=== PATIENT | male | born 1945 | race Caucasian/White ===

== ENCOUNTER 2016-11-18 10:09 | Outpatient (CLI) | payer MEDICARE, MEDICAID ==
[2016-11-18 11:02] LABS: HEMOGLOBIN A1C 1.52 g/dL
[2016-11-18 11:08] LABS: ALBUMIN/GLOBULIN RATIO 0.9 (1.0-2.2); BILIRUBIN,TOTAL 2.1 mg/dL (0.2-1.0); CALCIUM 8.6 mg/dL (8.5-10.3); CREATININE 2.1 mg/dL (0.6-1.2); POTASSIUM 3.9 mmol/L (3.5-5.0)
== END 2016-11-18 10:10 | disposition home or self-care (01) ==
LOC: LAB 10:09
PROVIDERS: ATTEND Internal Medicine
DX: R63.8 Other symptoms and signs concerning food and fluid intake (principal); E11.9 Type 2 diabetes mellitus without complications; Z79.899 Other long term (current) drug therapy
CPT/HCPCS: 36415; 80053; 83036; 84443

== ENCOUNTER 2016-11-22 08:58 | Outpatient (CLI) | payer MEDICARE, MEDICAID ==
--- NOTE | 2016-11-22 12:33 | Ultrasound Report ---
RIGHT UPPER QUADRANT ULTRASOUND: 11/22/2016 CLINICAL INDICATION: Elevated LFTs. TECHNIQUE: Real-time scanning was performed with industrial sales representative static images obtained. FINDINGS: The liver is enlarged, measuring 21 cm. Hepatic echogenicity is heterogeneous, with a nod ular contour, compatible with cirrhosis. The common bile duct measures 7 mm. The gallbladder demons trates stones. The right kidney measures 9.5 cm, and demonstrates no hydronephrosis. IMPRESSION: HETEROGENEOUS, ENLARGED LIVER, WITH NODULARITY OF THE SURFACE, SUGGESTIVE OF CIRRHOSIS. CHOLELITHIASIS. NO EVIDENCE OF BILIARY OBSTRUCTION. 12:9:47 JOB #: [id number] EXT JOB #:[id number]
== END 2016-11-22 08:59 | disposition home or self-care (01) ==
LOC: DI 08:58
PROVIDERS: ATTEND Internal Medicine
DX: R16.0 Hepatomegaly, not elsewhere classified (principal); K80.20 Calculus of gallbladder without cholecystitis without obstruction
CPT/HCPCS: 76705

== ENCOUNTER 2016-12-01 13:54 | Outpatient (CLI) | payer MEDICARE, MEDICAID ==
[2016-12-01 15:20] LABS: BILIRUBIN,DIRECT 0.3 mg/dL (0.1-0.5); BILIRUBIN,TOTAL 1.2 mg/dL (0.2-1.0); TOTAL PROTEIN 7.2 g/dL (6.7-8.2)
[2016-12-03 16:50] LABS: ALPHA 1 GLOBULIN 0.3 g/dL (0.2-0.3); ALPHA 2 GLOBULIN 0.8 g/dL (0.5-0.9); BETA 1 GLOBULIN 0.5 g/dL (0.4-0.6); BETA 2 GLOBULIN 0.6 g/dL (0.2-0.5); GAMMA GLOBULIN 1.1 g/dL (0.8-1.7)
[2016-12-03 21:56] LABS: SMOOTH MUSCLE IGG AB <20 U
[2016-12-04 18:47] LABS: LIVER KIDNEY MICROSOME AB <20.0 U
[2016-12-05 09:22] LABS: TEST RESULT REPORT
[2016-12-05 12:51] LABS: ANA SCREEN POSITIVE (NEGATIVE)
[2016-12-05 14:17] LABS: ANA TITER 1:40 titer
== END 2016-12-01 13:55 | disposition home or self-care (01) ==
LOC: LAB 13:54
PROVIDERS: ATTEND Internal Medicine
DX: R74.8 Abnormal levels of other serum enzymes (principal); K74.60 Unspecified cirrhosis of liver
CPT/HCPCS: 36415; 80076; 81599; 82105; 82390; 82728; 83516; 83540; 84155; 84165; 84466; 86038; 86255; 86317; 86376; 86704; 87340

== ENCOUNTER 2017-02-28 06:54 | Outpatient (CLI) | payer MEDICARE, MEDICAID | END 2017-02-28 06:55 | disposition critical access hospital (66) | LOC: EMS 06:54 | PROVIDERS: ATTEND Surgery | DX: R61 Generalized hyperhidrosis (principal); R09.89 Other specified symptoms and signs involving the circulatory and respiratory systems; R53.1 Weakness | CPT/HCPCS: A0425; A0427 ==

== ENCOUNTER 2017-02-28 07:13 | Inpatient (IN) | payer MEDICARE, MEDICAID ==
[2017-02-28] MEDS ORDERED: SODIUM CHLORIDE 0.9% 1,000 ML IV ONE ×2 (07:23→09:46)
--- NOTE | 2017-02-28 07:27 | ED Physician Documentation ---
PD HPI URI - Stated complaint Stated Complaint: GLF - History obtained from History obtained from: Patient, EMS - History of Present Illness Timing - onset: How many weeks ago (1) Timing duration: Weeks (1) Timing details: Gradual onset, Still present Associated symptoms: Dry cough, Dyspnea, Other (weakness). No: Fever Contributing factors: COPD / asthma Improves by: MDI/nebulizer Similar symptoms before: Has not had sx before Recently seen: Not recently seen - Additional information Additional information: 71 y/o male resident of [facility] with a history of COPD has had an increase in his cough over the past week and he has become weak and has had a fall last night without injury. He was noted to be hypotensive on standing and has received fluids. He denies fever. Review of Systems Constitutional: denies: Fever Eyes: denies: Decreased vision Ears: denies: Ear pain Nose: reports: Rhinorrhea / runny nose, Congestion Throat: denies: Sore throat Cardiac: denies: Chest pain / pressure, Palpitations Respiratory: reports: Dyspnea, Cough, Wheezing GI: denies: Abdominal Pain, Nausea, Vomiting, Constipation, Diarrhea : denies: Dysuria, Frequency Skin: reports: Rash Musculoskeletal: denies: Neck pain, Back pain, Extremity pain Neurologic: reports: Generalized weakness. denies: Focal weakness, Numbness PD PAST MEDICAL HISTORY - Present Medications Home Medications: Ambulatory Orders Medication Instructions Recorded Confirmed Amiodarone HCl 200 mg DAILY 02/28/17 02/28/17 Aspirin 81 mg PO DAILY 02/28/17 02/28/17 Carvedilol [Coreg] 6.25 mg PO BID 02/28/17 02/28/17 Ferrous Sulfate 325 mg PO DAILY 02/28/17 02/28/17 Fluticasone/Salmeterol [Advair 1 puffs BID 02/28/17 02/28/17 250-50 Diskus] Insulin Glargine [Lantus Solostar] 30 units BID 02/28/17 02/28/17 Lisinopril [Zestril] 2.5 mg PO DAILY 02/28/17 02/28/17 QUEtiapine [SEROquel] 50 mg QPM 02/28/17 02/28/17 Sertraline HCl [Zoloft] 100 mg PO QPM 02/28/17 02/28/17 Tiotropium [place] [Spiriva] 1 cap DAILY 02/28/17 02/28/17 Torsemide [Demadex] 80 mg PO BID 02/28/17 02/28/17 Urea 480 gm TP DAILY 02/28/17 02/28/17 - Allergies Allergies/Adverse Reactions: Allergies Allergy/AdvReac Type Severity Reaction Status Date / Time No Known Drug Allergies Allergy Verified 02/28/17 07:40 PD ED PE NORMAL - HEENT HEENT: Atraumatic, PERRL, EOMI, Other (thick white gomes is stained with tobacco around the lips ) - Neck Neck: Supple, no meningeal sign, No bony TTP - Cardiac Cardiac: No murmur, Other (tachy to 100) - Respiratory Respiratory: No respiratory distress, Other (scattered wheezes expritory with light rhonchi in the right base. ) - Abdomen Abdomen: Soft, Non tender, Other (There are multiple ventral hernias without pain ) - Back Back: No CVA TTP, No spinal TTP - Derm Derm: Normal color, Warm and dry, Other (There is erythema to the belt line looks like [place]) - Extremities Extremities: No deformity, No edema - Neuro Neuro: No motor deficit, No sensory deficit Eye Opening: Spontaneous Motor: Obeys Commands Verbal: Confused GCS Score: 14 - Psych Psych: Normal mood, Normal affect Results - Vitals Vitals: Vital Signs - 24 hr 02/28/17 02/28/17 02/28/17 07:14 08:00 08:15 Temperature 36.3 C L Heart Rate 80 78 76 Respiratory 20 22 20 Rate Blood Pressure 120/78 79/51 L 87/52 L O2 Saturation 92 92 91 L 02/28/17 02/28/17 02/28/17 09:00 09:17 09:30 Temperature Heart Rate 73 76 72 Respiratory 20 22 20 Rate Blood Pressure 94/53 L 88/55 L 87/55 L O2 Saturation 92 92 93 02/28/17 02/28/17 02/28/17 09:45 10:00 10:30 Temperature Heart Rate 71 70 71 Respiratory 22 20 20 Rate Blood Pressure 92/55 L 90/49 L 96/53 L O2 Saturation 94 96 96 02/28/17 02/28/17 02/28/17 10:45 11:00 11:20 Temperature Heart Rate 92 74 91 Respiratory 20 22 32 H Rate Blood Pressure 106/58 L 117/65 160/60 H O2 Saturation 98 92 51 L 02/28/17 02/28/17 02/28/17 11:28 11:40 11:45 Temperature Heart Rate 93 92 93 Respiratory 32 H 24 26 H Rate Blood Pressure 154/93 H 133/83 H 121/101 H O2 Saturation 82 L 89 L 89 L 02/28/17 02/28/17 02/28/17 11:50 11:58 12:03 Temperature Heart Rate 93 93 Respiratory 30 H 26 H 27 H Rate Blood Pressure 121/71 O2 Saturation 90 L 90 L Oxygen O2 Source BIPAP - EKG (time done) 0734 Rate: Rate (enter#) (78) Intervals: Prolonged HI, LBBB Compare to prior EKG: Old EKG unavailable Computer interpretation: Agree with computer - Labs Labs: Laboratory Tests 02/28/17 02/28/17 02/28/17 07:43 07:43 07:43 WBC 10.8 RBC 4.16 L Hgb 13.4 L Hct 39.1 L MCV 93.9 MCH 32.2 H MCHC 34.3 RDW 13.4 Plt Count 174 MPV 7.3 L Neut # 9.0 H Lymph # 1.0 L [place] # 0.7 Eos # 0.0 Baso # 0.1 Absolute Nucleated RBC 0.01 Nucleated RBC % 0.0 Bld Gas Analysis Time Sample Site ABG pH ABG pCO2 ABG pO2 ABG HCO3 ABG Total CO2 ABG O2 Saturation ABG Oximetry Spot Check ABG Base Excess Sanjay Test O2 Delivery Device FiO2 Sodium 136 Potassium 3.1 L Chloride 97 L Carbon Dioxide 24 Anion Gap 15.0 H BUN 55 H Creatinine 3.2 H Estimated GFR (MDRD) 19 L Glucose 139 H Lactic Acid Calcium 8.1 L Total Bilirubin 1.1 H AST 54 H ALT 32 Alkaline Phosphatase 70 Troponin I 0.07 Total Protein 7.4 Albumin 3.7 Globulin 3.7 Albumin/Globulin Ratio 1.0 Lipase 16 L Urine Color Urine Clarity Urine pH Ur Specific [place] Urine Protein Urine Glucose (UA) Urine Ketones Urine Occult Blood Urine Nitrite Urine Bilirubin Urine Urobilinogen Ur Leukocyte Esterase Urine RBC Urine WBC Ur Squamous Epith Cells Urine Bacteria Ur Microscopic Review Urine Culture Comments 02/28/17 02/28/17 02/28/17 07:43 11:00 11:17 WBC RBC Hgb Hct MCV MCH MCHC RDW Plt Count MPV Neut # Lymph # [place] # Eos # Baso # Absolute Nucleated RBC Nucleated RBC % Bld Gas Analysis Time Sample Site ABG pH ABG pCO2 ABG pO2 ABG HCO3 ABG Total CO2 ABG O2 Saturation ABG Oximetry Spot Check ABG Base Excess Sanjay Test O2 Delivery Device FiO2 Sodium Potassium Chloride Carbon Dioxide Anion Gap BUN Creatinine Estimated GFR (MDRD) Glucose Lactic Acid 0.8 Calcium Total Bilirubin AST ALT Alkaline Phosphatase Troponin I 0.06 Total Protein Albumin Globulin Albumin/Globulin Ratio Lipase Urine Color DARK YELLOW Urine Clarity CLOUDY Urine pH 6.0 Ur Specific [place] 1.025 Urine Protein 100 H Urine Glucose (UA) NEGATIVE Urine Ketones NEGATIVE Urine Occult Blood LARGE H Urine Nitrite NEGATIVE Urine Bilirubin NEGATIVE Urine Urobilinogen 0.2 (NORMAL) Ur Leukocyte Esterase MODERATE H Urine RBC TNTC H Urine WBC >25 H Ur Squamous Epith Cells NONE SEEN Urine Bacteria Many H Ur Microscopic Review INDICATED Urine Culture Comments INDICATED 02/28/17 11:43 WBC RBC Hgb Hct MCV MCH MCHC RDW Plt Count MPV Neut # Lymph # [place] # Eos # Baso # Absolute Nucleated RBC Nucleated RBC % Bld Gas Analysis Time 1145 Sample Site RIGHT RADIAL ABG pH 7.13 L* ABG pCO2 79 H* ABG pO2 70 L ABG HCO3 25.8 ABG Total CO2 28.2 ABG O2 Saturation 89 L ABG Oximetry Spot Check 87 ABG Base Excess -5.3 L Sanjay Test POSITIVE O2 Delivery Device NON REBREATHER MASK FiO2 100.00 Sodium Potassium Chloride Carbon Dioxide Anion Gap BUN Creatinine Estimated GFR (MDRD) Glucose Lactic Acid Calcium Total Bilirubin AST ALT Alkaline Phosphatase Troponin I Total Protein Albumin Globulin Albumin/Globulin Ratio Lipase Urine Color Urine Clarity Urine pH Ur Specific [place] Urine Protein Urine Glucose (UA) Urine Ketones Urine Occult Blood Urine Nitrite Urine Bilirubin Urine Urobilinogen Ur Leukocyte Esterase Urine RBC Urine WBC Ur Squamous Epith Cells Urine Bacteria Ur Microscopic Review Urine Culture Comments - Rads (name of study) 2 view chest Radiology: Prelim report reviewed (Impression: Technically suboptimal evaluation. No definite acute abnormality in the chest.), EMP read indepedently , See rad report Procedures - IVC sono (time) 0850 Bedside IVC sono: IVC measures (cm) (1.12), IVC collapsed c insp (cm) (complete) , Dehydration (after one liter still down one liter) 1120 Bedside IVC sono: IVC measures (cm) (2.68), High CVP, Fluid overload PD MEDICAL DECISION MAKING - ED course Complexity details: reviewed old records, reviewed results, re-evaluated patient , considered differential, d/w patient ED course: 71-year-old male with a history of COPD and CHF has come to the emergency department today markedly dehydrated. He is administered a liter of fluid he continues to have low blood pressure and a second liter of saline is begun he then develops flash pulmonary edema. He is administered Lasix 80 mg intravenously high flow oxygen a DuoNeb treatment and 2 mg of morphine intravenously. Departure - Departure Disposition: 66 [facility] DC/Xfer Clinical Impression: Acute kidney injury superimposed on chronic kidney disease, Flash pulmonary edema Urinary tract infection Qualifiers: Urinary tract infection type: acute cystitis Hematuria presence: with hematuria Qualified Code(s): N30.01 - Acute cystitis with hematuria
[2017-02-28 07:59] LABS: BASOPHILS # (AUTO) 0.1 10^3/uL (0.0-0.1); BASOPHILS % (AUTO) 0.9 %; HGB - HEMOGLOBIN 13.4 g/dL (14.0-18.0); LYMPHOCYTES % (AUTO) 9.2 %; MEAN CORPUSCULAR HEMOGLOBIN 32.2 pg (27.0-31.0); MEAN CORPUSCULAR HGB CONC 34.3 g/dL (32.0-36.0); MEAN CORPUSCULAR VOLUME 93.9 fL (80.0-94.0); MEAN PLATELET VOLUME 7.3 fL (7.4-11.4); MONOCYTES # (AUTO) 0.7 10^3/uL (0.0-1.0); MONOCYTES % (AUTO) 6.7 %; NEUTROPHILS % (AUTO) 83.2 %; PLT - PLATELET COUNT 174 10^3/uL (130-450); RED BLOOD COUNT 4.16 10^6/uL (4.70-6.10); RED CELL DISTRIBUTION WIDTH 13.4 % (12.0-15.0); WHITE BLOOD COUNT 10.8 x10^3/uL (4.8-10.8)
[2017-02-28 08:09] LABS: ALBUMIN 3.7 g/dL (3.2-5.5); BILIRUBIN,TOTAL 1.1 mg/dL (0.2-1.0); CALCIUM 8.1 mg/dL (8.5-10.3); CREATININE 3.2 mg/dL (0.6-1.2); TOTAL PROTEIN 7.4 g/dL (6.7-8.2)
--- NOTE | 2017-02-28 08:09 | XRAY Report ---
EXAM: CHEST RADIOGRAPHY EXAM DATE: 02/28/2017 07:54 AM. CLINICAL HISTORY: R lower lung rhonchi. COMPARISON: None. TECHNIQUE: 2 views. FINDINGS: Technically suboptimal evaluation secondary to grid artifact. Lungs/Pleura: No focal consolidation evident. No pleural effusion. No pneumothorax. Normal volumes. Mediastinum: Heart and mediastinal contours are unremarkable. Other: None. IMPRESSION: Technically suboptimal evaluation. No definite acute abnormality in the chest. [facility] Referring Provider Line: [phone] SITE ID: [id number]
[2017-02-28 11:27] LABS: BILIRUBIN,URINE NEGATIVE (NEGATIVE); GLUCOSE, URINE (UA) NEGATIVE (NEGATIVE); KETONES,URINE (UA) NEGATIVE (NEGATIVE); LEUKOCYTE ESTERASE, URINE MODERATE (NEGATIVE); NITRITE,URINE NEGATIVE (NEGATIVE); OCCULT BLOOD,URINE LARGE (NEGATIVE); PROTEIN,URINE 100 mg/dL (NEGATIVE); UROBILINOGEN,URINE 0.2 (NORMAL) E.U./dL (NORMAL)
[2017-02-28] MEDS ORDERED: FUROSEMIDE 40 MG/4 ML VIAL ONE (11:27)
[2017-02-28] MEDS ORDERED: IPRATROPIUM/ALBUTEROL 3 ML NEB INH STA (11:27)
[2017-02-28 11:28] LABS: CLARITY,URINE CLOUDY (CLEAR)
[2017-02-28] MEDS ORDERED: MORPHINE 10 MG/ML VIAL IVP STA (11:29)
[2017-02-28] MEDS ORDERED: FUROSEMIDE 40 MG/4 ML VIAL IVP STA (11:33)
[2017-02-28 11:46] LABS: BACTERIA,URINE Many /HPF (None Seen); RBC,URINE TNTC /HPF (0-5); SQUAMOUS EPITHELIAL CELL,UR NONE SEEN (<= Few)
[2017-02-28 11:48] LABS: ABG BASE EXCESS -5.3 mmol/L (-2.0-3.0); ABG HCO3 25.8 mmol/L (22.0-26.0); ABG OXYGEN SATURATION 89 % (94-98); ABG PO2 70 mmHg (80-100); ABG TCO2 28.2 MMOL/L (21.0-29.0); ALLEN TEST POSITIVE
[2017-02-28 11:50] LABS: ABG PCO2 79 mmHg (34-45); ABG PH 7.13 (7.35-7.45)
[2017-02-28] MEDS ORDERED: ACETAMINOPHEN 325 MG TABLET PO PRN (12:05)
[2017-02-28] MEDS ORDERED: oxyCODONE 5 MG TABLET PO PRN ×2 (12:05)
[2017-02-28] MEDS ORDERED: ONDANSETRON 4 MG/2 ML VIAL IVP PRN (12:05)
[2017-02-28] MEDS ORDERED: PROMETHAZINE 25 MG/1 ML VIAL IM PRN (12:05)
[2017-02-28] MEDS ORDERED: PROCHLORPERAZINE 10 MG/2 ML VIAL IVP PRN (12:05)
--- NOTE | 2017-02-28 12:38 | XRAY Preliminary Report ---
Exam: XR CHEST 1 VIEW X-RAY IMPRESSION: 1. Increased bilateral vascular congestion and increased interstitial markings which could represent mild interstitial edema. 2. No definite focal consolidation. 3. Stable right hemidiaphragm elevation. [facility] SITE ID: [id number]
--- NOTE | 2017-02-28 12:38 | XRAY Report ---
EXAM: CHEST RADIOGRAPHY EXAM DATE: 02/28/2017 12:24 PM. CLINICAL HISTORY: Acute dyspnea after fluid rescu. COMPARISON: 02/28/2017. TECHNIQUE: 1 view. FINDINGS: Lungs/Pleura: Increased bilateral vascular prominence/congestion and interstitial markings which coul d represent mild interstitial edema. Mild right basilar probable atelectasis. No dense consolidation. No definite pleural effusion. No pneumothorax. Stable right hemidiaphragm elevation. Mediastinum: Within exam limitations, the cardiomediastinal contour is normal. Other: None. IMPRESSION: 1. Increased bilateral vascular congestion and increased interstitial markings which could represent mild interstitial edema. 2. No definite focal consolidation. 3. Stable right hemidiaphragm elevation. [facility] Referring Provider Line: [phone] SITE ID: [id number]
[2017-02-28] MEDS ORDERED: levoFLOXacin 500 MG/100 ML 500 MG/100 ML BAG IV SCH (13:00)
[2017-02-28 13:17] LABS: ABG BASE EXCESS -3.5 mmol/L (-2.0-3.0); ABG HCO3 26.2 mmol/L (22.0-26.0); ABG TCO2 28.3 MMOL/L (21.0-29.0); ALLEN TEST POSITIVE
[2017-02-28 13:23] LABS: ABG OXYGEN SATURATION 83 % (94-98); ABG PCO2 69 mmHg (34-45); ABG PH 7.19 (7.35-7.45); ABG PO2 53 mmHg (80-100)
[2017-02-28] MEDS: FUROSEMIDE 40 MG/4 ML VIAL IVP SCH ×2 (13:38→20:18)
--- NOTE | 2017-02-28 13:41 | HISTORY & PHYSICAL EXAMINATION ---
Chief Complaint - Chief Complaint Chief Complaint: Generalized weakness History of Present Illness - Admitted From Admitted From:: Emergency department - History Obtained From Records Reviewed: Yes History obtained from: Patient's records and emergency room charting Exam Limitations: Patient unable to provide history secondary to lethargy and being on BiPAP - History of Present Illness HPI Comment/Other: Patient is a 71-year-old gentleman with a past medical history significant for atrial fibrillation on aspirin, hypertension, coronary artery disease, liver cirrhosis, history of CVA, congestive heart failure with an ejection fraction of 45%, COPD, pulmonary hypertension, type 2 diabetes, obstructive sleep apnea, depression and anemia who presented to the emergency department with a chief complaint of generalized weakness. The patient is a resident of [facility] and was found down on the floor this morning. The patient had apparently collapsed last night but was not seen until this morning. The patient is not able to provide any history secondary to being lethargic and on BiPAP when seen by myself. According to the record the patient had generalized weakness and had been having cough for the last several days. It was noted that the patient' s blood pressure was 89/47 with an O2 saturation of 89% at 11:40 PM the previous night. Per EMS the patient was orthostatic with a blood pressure of 126 when sitting and 60 systolic when standing. On presentation to the emergency department the patient appeared to be dry, hypotensive with blood pressure of 79/59 and tachypneic with hypoxia requiring 2 L of oxygen. The patient was given fluid resuscitation with 2 L of IV fluid in the emergency department. The patient's lab work revealed mildly low elevated liver enzymes, hypokalemia with a potassium of 3.1 and an elevated creatinine of 3.2 from a baseline of about 2.1. The patient's initial chest x- ray showed no definite acute abnormality in the chest. The patient's urinalysis did show moderate leukocyte esterase, with large occult blood and greater than 25 WBCs with bacteria. After receiving 2 L of IV fluid the patient became increasingly tachypneic and had increasing oxygen requirements. Patient was in acute respiratory failure and ABG done at that time revealed a acute respiratory acidosis with a pH of 7.13, PCO2 of 79 and a PO2 of 70 on a nonrebreather. The patient was immediately placed on BiPAP and given IV Lasix. The patient's chest x-ray at that time revealed increased bilateral vascular congestion and increased interstitial markings which could represent mild interstitial edema. There was still no focal consolidation. The patient was admitted to the intensive care unit with acute respiratory failure due to hypoxia and hypercapnia. Patient was also given IV antibiotics for urinary tract infection Patient is unable to provide a review of systems secondary to lethargy and altered mental status. History - Past Medical History Cardiovascular: reports: Congestive heart failure, Hypertension, High cholesterol, Coronary artery disease, Atrial fibrillation, Valve disorder Respiratory: reports: COPD, Sleep apnea, Other (Pulmonary hypertension) Endocrine/Autoimmune: reports: Type 2 diabetes GI: reports: GERD, Cirrhosis Psych: reports: Depression Other Past Medical History: past HX drug abuse - Family & Social History Family History Comment/Other: Unable to obtain secondary to lethargy and altered mental status. Living arrangement: Assisted living Living Situation: Alone Social History Notes: The patient lives at [facility]. 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 The patient has been smoking 2 packs per day of cigarettes for the last 50 years and continues to smoke. The patient drinks alcohol about once a month. There is no evidence of illicit drug use. Patient does not have any children, he is single. The patient's next of kin is his brother and [id number]. - POLST Patient has POLST: Yes POLST Status: Full Code Meds/Allgy - Home Medications Home Medications: Ambulatory Orders Medication Instructions Recorded Confirmed Amiodarone HCl 200 mg DAILY 02/28/17 02/28/17 Aspirin 81 mg PO DAILY 02/28/17 02/28/17 Carvedilol [Coreg] 6.25 mg PO BID 02/28/17 02/28/17 Diphenoxylate HCl/Atropine 2 tab PO QID PRN 02/28/17 02/28/17 [Diphenoxylate-Atrop 2.5-0.025] Ferrous Sulfate 325 mg PO DAILY 02/28/17 02/28/17 Fluticasone/Salmeterol [Advair 1 puffs INH BID 02/28/17 02/28/17 250-50 Diskus] Insulin Glargine [Lantus Solostar] 30 units SUBQ BID 02/28/17 02/28/17 Lisinopril [Zestril] 2.5 mg PO DAILY 02/28/17 02/28/17 QUEtiapine [SEROquel] 50 mg QPM 02/28/17 02/28/17 Sertraline HCl [Zoloft] 100 mg PO QPM 02/28/17 02/28/17 Tiotropium [place] [Spiriva] 1 cap DAILY 02/28/17 02/28/17 Torsemide [Demadex] 80 mg PO BID 02/28/17 02/28/17 Urea 1 applic TOP DAILY PRN 02/28/17 02/28/17 - Allergies Allergies/Adverse Reactions: Allergies Allergy/AdvReac Type Severity Reaction Status Date / Time No Known Drug Allergies Allergy Verified 02/28/17 07:40 Review of Systems - Other Findings Other Findings: Unable to obtain a conference of review of systems secondary to patient being lethargic and on BiPAP. Exam - Vital Signs Reviewed Vital Signs: Yes Vital Signs: Vital Signs x48h Pulse Resp BP Pulse Ox 02/28/17 13:30 88 02/28/17 12:45 90 25 H 103/60 95 02/28/17 12:15 96 26 H 97/67 93 - Physical Exam General Appearance: positive: Severe distress, Lethargic (Able to tell me his name but continues to become lethargic and unable to answer other questions. Able to sluggishly follow commands.) Eyes Bilateral: positive: Normal inspection, PERRL, EOMI, No lid inflammation, Conjunctivae nml, No scleral icterus ENT: positive: ENT inspection nml, Pharynx nml, Dry mucous membranes. negative : Purulent nasal drainage, Pharyngeal erythema, Oral lesions Neck: positive: Nml inspection, Thyroid nml, No JVD, Trachea midline. negative : Thyromegaly, Lymphadenopathy (R), Lymphadenopathy (L), Carotid bruit, Tracheal deviation Respiratory: positive: Rales (Bilateral up to mid lungs), Other (Decreased breath sounds in the upper airway) Cardiovascular: positive: No murmur, No gallop, Irregularly irregular, Tachycardia Peripheral Pulses: positive: 2+ Abdomen: positive: Non-tender, No organomegaly, Nml bowel sounds, Other (Obese) . negative: Guarding, Rebound, Hepatomegaly Back: positive: Nml inspection. negative: CVA tenderness (R), CVA tenderness (L ) Skin: positive: No rash, Other (Bilateral lower extremities appeared very dry with cracked skin and bilateral lower extremity edema). negative: Cyanosis, Diaphoresis, Decubitus Extremities: positive: Non-tender, Full ROM, Pedal edema (Mild) Neurologic/Psychiatric: positive: Motor nml, Sensation nml, Disoriented to place , Disoriented to time, Other (Very sluggish and lethargic.) Conclusion/Plan - Problem List (1) Acute respiratory failure with hypoxia and hypercapnia Conclusion/Plan: Patient initially presented with generalized weakness, cough and mild hypoxia. While in the emergency department the patient was given 2 L of IV fluid and had what appeared to be flash pulmonary edema. Patient's initial chest x-ray showed no acute changes but repeat x-ray after patient decompensated revealed pulmonary vascular congestion. Patient's troponin was negative and EKG did not show any ST changes. The patient's ABG revealed respiratory acidosis with a pH of 7.13, PCO2 of 79 and PO2 of 70 on a nonrebreather. Patient does have history of COPD as well as atrial fibrillation and CHF with a previous ejection fraction of 40%. Given the history and findings patient likely has a combination of CHF exacerbation with flash pulmonary edema and COPD exacerbation as the cause of his acute respiratory failure with hypoxia and hypercapnia. Plan: Continue BiPAP and repeat ABG in 2 hours consider ventilator if not improving IV lasix 80 mg IV solumedrol TID Duonebs ATC x24 hours (2) CHF exacerbation Conclusion/Plan: EF of 40% on previous Echo Patient received 2L of IVF in the ER and went into acute respiratory failure with hypoxia and hypercapnia likely secondary to flash pulmonary edema Patient given lasix 40 mg IV in the ER with minimal response Plan: IV lasix 80 mg BID Ladd catheter Monitor I/Os Monitor daily weights Echo BiPAP Qualifiers: Congestive heart failure type: systolic Qualified Code(s): I50.23 - Acute on chronic systolic (congestive) heart failure (3) Urinary tract infection Conclusion/Plan: Patient presented with generalized weakness and hypotension and appeared dehydrated Likely secondary to UTI UA positive and patient very weak Plan: IV levaquin Urine cx pending Qualifiers: Urinary tract infection type: acute cystitis Hematuria presence: with hematuria Qualified Code(s): N30.01 - Acute cystitis with hematuria (4) Acute encephalopathy Conclusion/Plan: Patient lethargic on BiPAP likely secondary to respiratory acidosis with hypercapnia and UTI No focal deficits Plan: BiPAP with repeat ABG IV abx for treatment of UTI Monitor if no improvement consider CT head (5) COPD (chronic obstructive pulmonary disease) Conclusion/Plan: Patient presented with mild hypoxia and cough Initial CXR was negative but patient was tight on exam Patient went into respiratory failure likely secondary to fluid overload but there does appear to be some component of COPD exacerbation Plan: BiPAP Duonebs ATC and prn Solumedrol IV MOnitor closely Qualifiers: COPD type: COPD with acute exacerbation Qualified Code(s): J44.1 - Chronic obstructive pulmonary disease with (acute) exacerbation (6) Acute kidney injury superimposed on chronic kidney disease Conclusion/Plan: Patient has CKD with spinning operator of 2.1 in 11/2016 but presents with spinning operator of 3.2 and BUN of 55 Likely acute on chronic renal failure due to UTI and dehydration as patient was hypotensive on presentation Patient given 2L of IVF but had flash pulmonary edema Now being given lasix IV Plan: Monitor Running Instructor Avoid nephrotoxic agents Consider renal ultrasound (7) Diabetes Conclusion/Plan: BG was 139 on presentation Dean has CKD secondary to DM Continue home dose of lantus Place on SS insulin and DM diet MONitor BG ACHS HbA1C Qualifiers: Diabetes mellitus type: type 2 Diabetes mellitus complication status: with kidney complications Diabetes mellitus complication detail: with chronic kidney disease Diabetes mellitus long term care pharmacist insulin use: with long term care pharmacist use Chronic kidney disease stage: stage 3 (moderate) Qualified Code(s): E11.22 - Type 2 diabetes mellitus with diabetic chronic kidney disease; N18.3 - Chronic kidney disease, stage 3 (moderate); N18.3 - Chronic kidney disease, stage 3 ( moderate); Z79.4 - terminal operations manager (current) use of insulin; Z79.4 - penitentiary ( current) use of insulin; Z79.4 - terminal operations manager (current) use of insulin; Z79.4 - terminal operations manager (current) use of insulin (8) Hypertension Conclusion/Plan: Patients BP is borderline low Likely secondary to ongoing infection and initially from patient being dehydrated Given 2L of IVF in the ER Will hold BP meds unless BP improves Monitor BP q1 hour Qualifiers: Hypertension type: essential hypertension Qualified Code(s): I10 - Essential (primary) hypertension (9) Atrial fibrillation Conclusion/Plan: Patient has history of A fib Rate is controlled and patient in SR on EKG On Coreg at home Will continue coreg Patient has CHADS2 score of 3 and should be on anticoagulation Patient will need to follow up with his PCP and consider anticoagulation as an outpatient Qualifiers: Atrial fibrillation type: paroxysmal Qualified Code(s): I48.0 - Paroxysmal atrial fibrillation (10) Tobacco abuse Conclusion/Plan: Smokes [address] on nicotine patch and 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 - Lab Results Lab results reviewed: Yes Fish Bones: 02/28/17 07:43 02/28/17 07:43 Other Lab Results: Laboratory Results WBC 10.8 x10^3/uL (4.8-10.8) 02/28/17 07:43 RBC 4.16 10^6/uL (4.70-6.10) L 02/28/17 07:43 Hgb 13.4 g/dL (14.0-18.0) L 02/28/17 07:43 Hct 39.1 % (42.0-52.0) L 02/28/17 07:43 MCV 93.9 fL (80.0-94.0) 02/28/17 07:43 MCH 32.2 pg (27.0-31.0) H 02/28/17 07:43 MCHC 34.3 g/dL (32.0-36.0) 02/28/17 07:43 RDW 13.4 % (12.0-15.0) 02/28/17 07:43 Plt Count 174 10^3/uL (130-450) 02/28/17 07:43 MPV 7.3 fL (7.4-11.4) L 02/28/17 07:43 Neut # 9.0 10^3/uL (1.5-6.6) H 02/28/17 07:43 Lymph # 1.0 10^3/uL (1.5-3.5) L 02/28/17 07:43 [place] # 0.7 10^3/uL (0.0-1.0) 02/28/17 07:43 Eos # 0.0 10^3/uL (0.0-0.7) 02/28/17 07:43 Baso # 0.1 10^3/uL (0.0-0.1) 02/28/17 07:43 Absolute Nucleated RBC 0.01 x10^3/uL 02/28/17 07:43 Nucleated RBC % 0.0 /100WBC 02/28/17 07:43 Bld Gas Analysis Time 1305 02/28/17 13:05 Sample Site LEFT RADIAL 02/28/17 13:05 ABG pH 7.19 (7.35-7.45) L* 02/28/17 13:05 ABG pCO2 69 mmHg (34-45) H* 02/28/17 13:05 ABG pO2 53 mmHg (80-100) L* 02/28/17 13:05 ABG HCO3 26.2 mmol/L (22.0-26.0) H 02/28/17 13:05 ABG Total CO2 28.3 MMOL/L (21.0-29.0) 02/28/17 13:05 ABG O2 Saturation 83 % (94-98) L* 02/28/17 13:05 ABG Oximetry Spot Check 87 % 02/28/17 11:43 ABG Base Excess -3.5 mmol/L (-2.0-3.0) L 02/28/17 13:05 Sanjay Test POSITIVE 02/28/17 13:05 O2 Delivery Device BiPAP 02/28/17 13:05 FiO2 60.00 02/28/17 13:05 EPAP 5 cmH2O 02/28/17 13:05 IPAP 16 cmH2O 02/28/17 13:05 Sodium 136 mmol/L (135-145) 02/28/17 07:43 Potassium 3.1 mmol/L (3.5-5.0) L 02/28/17 07:43 Chloride 97 mmol/L (101-111) L 02/28/17 07:43 Carbon Dioxide 24 mmol/L (21-32) 02/28/17 07:43 Anion Gap 15.0 (6-13) H 02/28/17 07:43 BUN 55 mg/dL (6-20) H 02/28/17 07:43 Creatinine 3.2 mg/dL (0.6-1.2) H 02/28/17 07:43 Estimated GFR (MDRD) 19 (>89) L 02/28/17 07:43 Glucose 139 mg/dL (70-100) H 02/28/17 07:43 Lactic Acid 0.8 mmol/L (0.5-2.2) 02/28/17 07:43 Calcium 8.1 mg/dL (8.5-10.3) L 02/28/17 07:43 Total Bilirubin 1.1 mg/dL (0.2-1.0) H 02/28/17 07:43 AST 54 IU/L (10-42) H 02/28/17 07:43 ALT 32 IU/L (10-60) 02/28/17 07:43 Alkaline Phosphatase 70 IU/L (42-121) 02/28/17 07:43 Troponin I 0.06 ng/mL (<0.49) 02/28/17 11:00 B-Natriuretic Peptide 255 pg/mL (5-100) H 02/28/17 07:43 Total Protein 7.4 g/dL (6.7-8.2) 02/28/17 07:43 Albumin 3.7 g/dL (3.2-5.5) 02/28/17 07:43 Globulin 3.7 g/dL (2.1-4.2) 02/28/17 07:43 Albumin/Globulin Ratio 1.0 (1.0-2.2) 02/28/17 07:43 Lipase 16 U/L (22-51) L 02/28/17 07:43 Urine Color DARK YELLOW 02/28/17 11:17 Urine Clarity CLOUDY (CLEAR) 02/28/17 11:17 Urine pH 6.0 PH (5.0-7.5) 02/28/17 11:17 Ur Specific [place] 1.025 (1.002-1.030) 02/28/17 11:17 Urine Protein 100 mg/dL (NEGATIVE) H 02/28/17 11:17 Urine Glucose (UA) NEGATIVE mg/dL (NEGATIVE) 02/28/17 11:17 Urine Ketones NEGATIVE mg/dL (NEGATIVE) 02/28/17 11:17 Urine Occult Blood LARGE (NEGATIVE) H 02/28/17 11:17 Urine Nitrite NEGATIVE (NEGATIVE) 02/28/17 11:17 Urine Bilirubin NEGATIVE (NEGATIVE) 02/28/17 11:17 Urine Urobilinogen 0.2 (NORMAL) E.U./dL (NORMAL) 02/28/17 11:17 Ur Leukocyte Esterase MODERATE (NEGATIVE) H 02/28/17 11:17 Urine RBC TNTC /HPF (0-5) H 02/28/17 11:17 Urine WBC >25 /HPF (0-3) H 02/28/17 11:17 Ur Squamous Epith Cells NONE SEEN (<= Few) 02/28/17 11:17 Urine Bacteria Many /HPF (None Seen) H 02/28/17 11:17 Ur Microscopic Review INDICATED 02/28/17 11:17 Urine Culture Comments INDICATED 02/28/17 11:17 - Diagnostic Imaging Results Diagnostic Imaging Results: positive: Final report reviewed Diagnostic Imaging Results Comments: CHEST RADIOGRAPHY EXAM DATE: 02/28/2017 07:54 AM. CLINICAL HISTORY: R lower lung rhonchi. COMPARISON: None. TECHNIQUE: 2 views. FINDINGS: Technically suboptimal evaluation secondary to grid artifact. Lungs/Pleura: No focal consolidation evident. No pleural effusion. No pneumothorax. Normal volumes. Mediastinum: Heart and mediastinal contours are unremarkable. Other: None. IMPRESSION: Technically suboptimal evaluation. No definite acute abnormality in the chest. CHEST RADIOGRAPHY EXAM DATE: 02/28/2017 12:24 PM. CLINICAL HISTORY: Acute dyspnea after fluid rescu. COMPARISON: 02/28/2017. TECHNIQUE: 1 view. FINDINGS: Lungs/Pleura: Increased bilateral vascular prominence/congestion and interstitial markings which could represent mild interstitial edema. Mild right basilar probable atelectasis. No dense consolidation. No definite pleural effusion. No pneumothorax. Stable right hemidiaphragm elevation. Mediastinum: Within exam limitations, the cardiomediastinal contour is normal. Other: None. IMPRESSION: 1. Increased bilateral vascular congestion and increased interstitial markings which could represent mild interstitial edema. 2. No definite focal consolidation. 3. Stable right hemidiaphragm elevation. - EKG Results EKG Interpreted Independently: Yes EKG Findings: Inferior and anterior Q waves with left bundle branch block. No ST elevations. Core Measures - Anticipated LOS I expect patient to be DC'd or transferred within 96 hours.: Yes - DVT/VTE - Prophylaxis VTE/DVT Prophylaxis med ordered at admit?: Yes
[2017-02-28] MEDS: methylPREDNISolone SUCCINATE 40 MG/ML VIAL IVP SCH ×2 (13:45→17:41)
[2017-02-28] MEDS ORDERED: LORazepam 2 MG/ML VIAL IVP PRN (14:02)
[2017-02-28] MEDS: NICOTINE 21 MG PATCH TOP SCH (14:26)
[2017-02-28] MEDS: IPRATROPIUM/ALBUTEROL 3 ML NEB INH SCH ×3 (14:42→18:16)
[2017-02-28 15:59] LABS: ABG BASE EXCESS -2.1 mmol/L (-2.0-3.0); ABG HCO3 25.8 mmol/L (22.0-26.0); ABG OXYGEN SATURATION 95 % (94-98); ABG PCO2 58 mmHg (34-45); ABG PH 7.27 (7.35-7.45); ABG PO2 82 mmHg (80-100); ABG TCO2 27.5 MMOL/L (21.0-29.0)
[2017-02-28 16:00] LABS: ALLEN TEST POSITIVE
[2017-02-28] MEDS ORDERED: SODIUM CHLORIDE 0.9% 250 ML IV ONE (16:07)
[2017-02-28] MEDS: POTASSIUM CHLOR 10 MEQ/100 ML 10 MEQ/100 ML BAG IV SCH ×3 (16:13→19:39)
[2017-02-28] MEDS: AMIODARONE 200 MG TABLET PO SCH (16:16)
[2017-02-28] MEDS: ASPIRIN CHEW 81 MG TABLET PO SCH (16:16)
[2017-02-28] MEDS: SODIUM CHLORIDE FLUSH 0.9% 10 ML SYRINGE IVP PRN (16:19)
[2017-02-28] MEDS: SODIUM CHLORIDE FLUSH 0.9% 10 ML SYRINGE IVP SCH ×2 (16:19→20:18)
[2017-02-28 16:41] LABS: MAGNESIUM 2.2 mg/dL (1.7-2.8); PHOSPHORUS 5.5 mg/dL (2.5-4.6)
[2017-02-28] MEDS: INSULIN ASPART 300 UNIT/3 ML PEN SUBQ SCH ×2 (17:41→20:12)
[2017-02-28] MEDS: SACCHAROMYCES BOULARDII 250 MG CAPSULE PO SCH (17:42)
[2017-02-28 18:11] LABS: ABG PCO2 56 mmHg (34-45); ABG PH 7.27 (7.35-7.45); ABG PO2 131 mmHg (80-100)
[2017-02-28 18:12] LABS: ABG BASE EXCESS -2.4 mmol/L (-2.0-3.0); ABG HCO3 25.2 mmol/L (22.0-26.0); ABG OXYGEN SATURATION 98 % (94-98); ABG TCO2 26.9 MMOL/L (21.0-29.0); ALLEN TEST POSITIVE
[2017-02-28] MEDS: SERTRALINE 50 MG TABLET PO SCH (20:06)
[2017-02-28] MEDS: QUEtiapine 100 MG TABLET PO SCH (20:06)
[2017-02-28] MEDS: CHLORHEXIDINE GLUCONATE 15 ML UDC PO SCH (20:11)
[2017-02-28] MEDS: INSULIN GLARGINE 300 UNIT/3 ML PEN SUBQ SCH (20:12)
[2017-02-28] MEDS: IPRATROPIUM/ALBUTEROL 3 ML NEB INH PRN (20:54)
[2017-02-28] MEDS ORDERED: CARVEDILOL 3.125 MG TABLET PO SCH (21:00)
[2017-03-01] MEDS: methylPREDNISolone SUCCINATE 40 MG/ML VIAL IVP SCH ×4 (00:17→17:12)
[2017-03-01 05:12] LABS: ALBUMIN 3.1 g/dL (3.2-5.5); ALBUMIN/GLOBULIN RATIO 0.8 (1.0-2.2); BILIRUBIN,TOTAL 0.9 mg/dL (0.2-1.0); CALCIUM 7.8 mg/dL (8.5-10.3); CREATININE 2.5 mg/dL (0.6-1.2); MAGNESIUM 2.2 mg/dL (1.7-2.8); PHOSPHORUS 3.6 mg/dL (2.5-4.6); TOTAL PROTEIN 6.8 g/dL (6.7-8.2)
[2017-03-01 05:15] LABS: BASOPHILS % (AUTO) 0.4 %; EOSINOPHILS % (AUTO) 0.6 %; HGB - HEMOGLOBIN 12.8 g/dL (14.0-18.0); INR 1.1 (0.8-1.2); LYMPHOCYTES # (AUTO) 0.5 10^3/uL (1.5-3.5); LYMPHOCYTES % (AUTO) 6.8 %; MEAN CORPUSCULAR HEMOGLOBIN 32.2 pg (27.0-31.0); MEAN CORPUSCULAR HGB CONC 33.2 g/dL (32.0-36.0); MONOCYTES # (AUTO) 0.2 10^3/uL (0.0-1.0); MONOCYTES % (AUTO) 2.2 %; NEUTROPHILS # (AUTO) 6.7 10^3/uL (1.5-6.6); PT - PROTHROMBIN TIME 12.8 secs (9.9-12.6); RED BLOOD COUNT 3.98 10^6/uL (4.70-6.10); RED CELL DISTRIBUTION WIDTH 13.6 % (12.0-15.0); WHITE BLOOD COUNT 7.4 x10^3/uL (4.8-10.8)
[2017-03-01 05:41] LABS: HB2 TOTAL 13.3 g/dL; HEMOGLOBIN A1C 0.78 g/dL; HEMOGLOBIN A1C % 7.5 % (4.6-6.2)
[2017-03-01] MEDS ORDERED: PANTOPRAZOLE 40 MG VIAL ONE (05:56)
[2017-03-01] MEDS: SODIUM CHLORIDE FLUSH 0.9% 10 ML SYRINGE IVP SCH ×3 (05:59→20:42)
[2017-03-01] MEDS: PANTOPRAZOLE 40 MG VIAL IVP SCH (06:07)
[2017-03-01 06:21] LABS: PLATELET ESTIMATE, MANUAL NORMAL (130-450,000) (NORMAL); PLATELET MORPHOLOGY PLATELET CLUMPING (NORMAL); RBC MORPHOLOGY (MULTIPLE) NORMAL APPEARANCE (NORMAL)
[2017-03-01 07:20] LABS: ABG PCO2 44 mmHg (34-45); ABG PH 7.34 (7.35-7.45); ABG PO2 73 mmHg (80-100)
[2017-03-01 07:21] LABS: ABG BASE EXCESS -2.5 mmol/L (-2.0-3.0); ABG HCO3 23.3 mmol/L (22.0-26.0); ABG OXYGEN SATURATION 94 % (94-98); ABG TCO2 24.7 MMOL/L (21.0-29.0); ALLEN TEST POSITIVE
[2017-03-01] MEDS: IPRATROPIUM/ALBUTEROL 3 ML NEB INH SCH ×2 (07:26→11:17)
[2017-03-01] MEDS: INSULIN ASPART 300 UNIT/3 ML PEN SUBQ SCH ×4 (08:21→20:36)
[2017-03-01] MEDS: AMIODARONE 200 MG TABLET PO SCH (08:22)
[2017-03-01] MEDS: POTASSIUM CHLORIDE 20 MEQ TABLET PO SCH (08:22)
[2017-03-01] MEDS: SACCHAROMYCES BOULARDII 250 MG CAPSULE PO SCH ×2 (08:22→17:11)
[2017-03-01] MEDS: ASPIRIN CHEW 81 MG TABLET PO SCH (08:22)
[2017-03-01] MEDS: CHLORHEXIDINE GLUCONATE 15 ML UDC PO SCH ×2 (08:23→20:55)
[2017-03-01] MEDS: FERROUS SULFATE 325 MG TABLET PO SCH (08:23)
[2017-03-01] MEDS: ENOXAPARIN 40 MG/0.4 ML SYRINGE SUBQ SCH (08:23)
[2017-03-01] MEDS: INSULIN GLARGINE 300 UNIT/3 ML PEN SUBQ SCH ×2 (08:23→20:36)
[2017-03-01] MEDS: NICOTINE 21 MG PATCH TOP SCH (08:23)
[2017-03-01] MEDS ORDERED: LISINOPRIL 5 MG TABLET PO SCH (09:00)
[2017-03-01] MEDS: IPRATROPIUM/ALBUTEROL 3 ML NEB INH PRN (15:33)
--- NOTE | 2017-03-01 18:03 | PROVIDER PROGRESS NOTE ---
Assessment/Plan - Problem List (1) Acute respiratory failure with hypoxia and hypercapnia Assessment/Plan: Resolved with BiPAP This am patients pH is up to 7.34, PCO2 down to 44.2 and pO2 is 72.9 on 4L of O2 Patient is awake and alert SOA is much improved Patient has improved with lasix, nebs and steroids Transfer to med surg (2) CHF exacerbation Conclusion/Plan: Patient had flash pulmonary edema after receiving IVF in ER for hypotension Patient is much improved after IV lasix with good output Off BiPAP On 4L of O2 Resting comfortably New echo shows normal EF and no valvular abnormalities EF likely improved with meds Stop lasix as patient is hypotensive Wean O2 Qualifiers: Congestive heart failure type: systolic Qualified Code(s): I50.23 - Acute on chronic systolic (congestive) heart failure (3) Urinary tract infection Conclusion/Plan: Patient presented with generalized weakness and hypotension and appeared dehydrated Likely secondary to UTI UA positive and patient very weak On IV levaquin day 2 Blood cx negative Prelim urine cx growing gram positive cocci PT evaluation for weakness Qualifiers: Urinary tract infection type: acute cystitis Hematuria presence: with hematuria Qualified Code(s): N30.01 - Acute cystitis with hematuria (4) Acute encephalopathy Conclusion/Plan: Resolved was likely secondary to hypercapnea from respiratory failure (5) COPD (chronic obstructive pulmonary disease) Conclusion/Plan: Patient presented with mild hypoxia and cough Initial CXR was negative but patient was tight on exam Patient went into respiratory failure likely secondary to fluid overload but there does appear to be some component of COPD exacerbation Improving Continue nebs, steroids, O2 Qualifiers: COPD type: COPD with acute exacerbation Qualified Code(s): J44.1 - Chronic obstructive pulmonary disease with (acute) exacerbation (6) Acute kidney injury superimposed on chronic kidney disease Conclusion/Plan: Patient has CKD with rough patcher of 2.1 in 11/2016 but presents with rough patcher of 3.2 and BUN of 55 Likely acute on chronic renal failure due to UTI and dehydration as patient was hypotensive on presentation Patient given 2L of IVF but had flash pulmonary edema Senior 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 Architect improved to 2.5 Monitor Senior Technical Architect Avoid nephrotoxic agents (7) Diabetes Conclusion/Plan: BG in 200s today likely secondary to infection Dean has CKD secondary to DM Continue home dose of lantus Place on SS insulin and DM diet MONitor BG ACHS HbA1C Qualifiers: Diabetes mellitus type: type 2 Diabetes mellitus complication status: with kidney complications Diabetes mellitus complication detail: with chronic kidney disease Diabetes mellitus group home insulin use: with group home use Chronic kidney disease stage: stage 3 (moderate) Qualified Code(s): E11.22 - Type 2 diabetes mellitus with diabetic chronic kidney disease; N18.3 - Chronic kidney disease, stage 3 (moderate); N18.3 - Chronic kidney disease, stage 3 ( moderate); Z79.4 - correction (current) use of insulin; Z79.4 - intermediate project manager ( current) use of insulin; Z79.4 - intermediate project manager (current) use of insulin; Z79.4 - intermediate project manager (current) use of insulin (8) Hypertension Conclusion/Plan: Patients BP is low Hold BP meds Monitor Qualifiers: Hypertension type: essential hypertension Qualified Code(s): I10 - Essential (primary) hypertension (9) Atrial fibrillation Conclusion/Plan: Patient has history of A fib Rate is controlled and patient in SR on EKG On Coreg at home Hold coreg for hypotension Patient has CHADS2 score of 3 and should be on anticoagulation Patient will need to follow up with his PCP and consider anticoagulation as an outpatient Qualifiers: Atrial fibrillation type: paroxysmal Qualified Code(s): I48.0 - Paroxysmal atrial fibrillation (10) Tobacco abuse Conclusion/Plan: Smokes [address] on nicotine patch and 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 - Current Meds Current Meds: Current Medications Generic Name Dose Route Start Last Admin Trade Name Freq PRN Reason Stop Dose Admin Albuterol/Ipratropium 3 ml 02/28/17 15:00 03/01/17 15:33 Duoneb INH 3 ml RTQ4H PRN Administration Wheezing Amiodarone HCl 200 mg 02/28/17 13:00 03/01/17 08:22 Pacerone PO 200 mg DAILY JAMI Administration Aspirin 81 mg 02/28/17 13:00 03/01/17 08:22 St Nick Aspirin PO 81 mg DAILY JAMI Administration Chlorhexidine Gluconate 15 ml 02/28/17 21:00 03/01/17 08:23 Peridex PO 15 ml BID JAMI Administration Enoxaparin Sodium 40 mg 03/01/17 09:00 03/01/17 08:23 Lovenox SUBQ 40 mg DAILY JAMI Administration Ferrous Sulfate 325 mg 03/01/17 09:00 03/01/17 08:23 Feosol PO 325 mg DAILY JAMI Administration Levofloxacin 250 mg in 50 mls @ 50 mls/hr 03/01/17 13:00 03/01/17 13:05 Levaquin 250 Mg/50 Ml IV Infused Q24H JAMI Infusion Insulin Aspart 2 - 10 unit 03/01/17 17:15 03/01/17 17:11 Novolog SUBQ 8 unit 0800,1200,1700,2100 JAMI Administration Protocol Insulin Glargine 30 unit 02/28/17 21:00 03/01/17 08:23 Lantus Solostar SUBQ 30 unit BID JAMI Administration Lorazepam 1 mg 02/28/17 14:02 02/28/17 14:22 Ativan Inj (Vial) IVP 1 mg Q2H PRN Administration Anxiety Methylprednisolone 40 mg 02/28/17 13:00 03/01/17 17:12 Solu-Medrol (40mg Vial) IVP 40 mg Q6HR JAMI Administration Nicotine 1 patch 02/28/17 14:00 03/01/17 08:23 Nicoderm TOP 1 patch DAILY JAMI Administration Pantoprazole Sodium 40 mg 03/01/17 07:00 03/01/17 06:07 Protonix IVP 40 mg QDAC JAMI Administration Potassium Chloride 20 meq 03/01/17 08:00 03/01/17 08:22 K-Dur PO 20 meq DAILYWM JAMI Administration Quetiapine Fumarate 50 mg 02/28/17 21:00 02/28/17 20:06 Seroquel PO 50 mg QPM JAMI Administration Saccharomyces Boulardii 250 mg 02/28/17 17:00 03/01/17 17:11 Florastor PO 250 mg BIDWM JAMI Administration Sertraline HCl 100 mg 02/28/17 21:00 02/28/17 20:06 Zoloft PO 100 mg QPM JAMI Administration Sodium Chloride 10 ml 02/28/17 14:00 03/01/17 12:04 Normal Saline Flush 0.9% IVP 10 ml Q8HR JAMI Administration Sodium Chloride 10 ml 02/28/17 12:05 02/28/17 16:19 Normal Saline Flush 0.9% IVP 10 ml PRN PRN Administration NEEDED PER PROVIDER ORDERS - Lab Result Lab results reviewed: Yes Fish Bone Diagrams: 03/01/17 03:55 03/01/17 03:55 - Diagnostic Imaging Results Diagnostic Imaging Results: Final report reviewed - Additional Planning Condition/Complexity: Improved My Orders: My Active Orders 03/01/17 Evaluate and Treat PT [PT] Routine 03/01/17 11:03 IO [RC] IOSHIFT Vital Signs [RC] Q4HR 03/01/17 13:00 levoFLOXacin 250 MG/50 ML [Levaquin 250 mg/50 ml] 250 mg in 50 ml IV Q24H 03/01/17 17:15 Insulin Aspart [NovoLOG] 2 - 10 unit SUBQ 0800,1200,1700,2100 Consult/Specialty: PT Plan Discussed with:: Patient Time Spent: 31-60 minutes Subjective - Subjective Patient Reports: Feeling Better, Resting Comfortably, Other (Feels weak, no fever, no chills, no abdominal pain.) Nursing Reports: No Complaints Objective Vital Signs: Vital Signs - 24 hr 02/28/17 02/28/17 02/28/17 18:00 18:19 19:00 Temperature Heart Rate 79 Heart Rate [ 78 77 Monitoring electrodes] Respiratory 25 H 23 22 Rate Blood Pressure [Activity] Blood Pressure 119/66 104/58 L [Left Brachial artery] Blood Pressure [Supine] O2 Saturation 100 95 02/28/17 02/28/17 02/28/17 19:19 20:00 20:54 Temperature 37.7 C H Heart Rate 77 Heart Rate [ 82 84 Monitoring electrodes] Respiratory 23 26 H 20 Rate Blood Pressure [Activity] Blood Pressure 110/46 L [Left Brachial artery] Blood Pressure [Supine] O2 Saturation 94 95 02/28/17 02/28/17 02/28/17 21:00 22:00 23:00 Temperature Heart Rate Heart Rate [ 77 70 70 Monitoring electrodes] Respiratory 18 18 21 Rate Blood Pressure [Activity] Blood Pressure 88/45 L 86/48 L 86/49 L [Left Brachial artery] Blood Pressure [Supine] O2 Saturation 95 93 93 02/28/17 02/28/17 02/28/17 23:04 23:45 23:51 Temperature 36.3 C L Heart Rate 69 Heart Rate [ 69 Monitoring electrodes] Respiratory 17 Rate Blood Pressure [Activity] Blood Pressure 98/64 [Left Brachial artery] Blood Pressure [Supine] O2 Saturation 92 03/01/17 03/01/17 03/01/17 01:00 01:23 02:00 Temperature Heart Rate 67 Heart Rate [ 66 66 Monitoring electrodes] Respiratory 19 18 Rate Blood Pressure [Activity] Blood Pressure 93/52 L 89/48 L [Left Brachial artery] Blood Pressure [Supine] O2 Saturation 92 93 03/01/17 03/01/17 03/01/17 03:00 03:37 04:00 Temperature 36.5 C Heart Rate Heart Rate [ 67 66 Monitoring electrodes] Respiratory 16 15 Rate Blood Pressure [Activity] Blood Pressure 96/52 L 90/55 L [Left Brachial artery] Blood Pressure [Supine] O2 Saturation 93 93 03/01/17 03/01/17 03/01/17 04:37 05:00 06:00 Temperature Heart Rate 64 Heart Rate [ 65 76 Monitoring electrodes] Respiratory 17 24 Rate Blood Pressure [Activity] Blood Pressure 89/51 L 97/60 [Left Brachial artery] Blood Pressure [Supine] O2 Saturation 93 95 03/01/17 03/01/17 03/01/17 07:00 07:27 07:31 Temperature Heart Rate 75 73 Heart Rate [ 79 Monitoring electrodes] Respiratory 18 19 Rate Blood Pressure [Activity] Blood Pressure 87/52 L [Left Brachial artery] Blood Pressure [Supine] O2 Saturation 95 03/01/17 03/01/17 03/01/17 08:00 09:00 10:00 Temperature Heart Rate Heart Rate [ 71 76 71 Monitoring electrodes] Respiratory 23 22 14 Rate Blood Pressure [Activity] Blood Pressure 92/55 L 100/49 L 103/54 L [Left Brachial artery] Blood Pressure [Supine] O2 Saturation 95 96 96 03/01/17 03/01/17 03/01/17 11:15 11:40 13:35 Temperature Heart Rate 76 Heart Rate [ 74 Monitoring electrodes] Respiratory 18 18 Rate Blood Pressure 96/53 L [Activity] Blood Pressure 85/47 L [Left Brachial artery] Blood Pressure 90/45 L [Supine] O2 Saturation 95 03/01/17 03/01/17 15:33 16:56 Temperature 36.6 C Heart Rate 78 Heart Rate [ 71 Monitoring electrodes] Respiratory 20 22 Rate Blood Pressure [Activity] Blood Pressure 106/51 L [Left Brachial artery] Blood Pressure [Supine] O2 Saturation 95 Oxygen O2 Source Nasal cannula I&O (Last 24 Hrs): Intake and Output Totals x24h 02/27/17 02/28/17 03/01/17 23:59 23:59 23:59 Intake Total 550.0 1840 Output Total 2510 1665 Balance -1960.0 175 General: Alert, Oriented x3, Cooperative, No acute distress HEENT: Atraumatic, PERRLA, EOMI, Mucous membr. moist/pink Neck: Supple, No JVD, No thyromegaly, +2 carotid pulse wo bruit, No LAD Lymphatic: no adenopathy Neuro: Alert, Non Focal, CN 2-12 Grossly Intact, Oriented Times 3 Cardiovascular: Regular rate, Normal S1, Normal S2, No murmurs Respiratory: Chest non-tender, No respiratory distress, Wheezes (scattered), Rales (Bases mild) Abdomen: Normal bowel sounds, Soft, No tenderness, No hepatospenomegaly Extremities: No clubbing, No cyanosis, No edema, Normal pulses Skin: No rashes, No breakdown - Results Results: Laboratory Results WBC 7.4 x10^3/uL (4.8-10.8) 03/01/17 03:55 RBC 3.98 10^6/uL (4.70-6.10) L 03/01/17 03:55 Hgb 12.8 g/dL (14.0-18.0) L 03/01/17 03:55 Hct 38.6 % (42.0-52.0) L 03/01/17 03:55 MCV 97.0 fL (80.0-94.0) H 03/01/17 03:55 MCH 32.2 pg (27.0-31.0) H 03/01/17 03:55 MCHC 33.2 g/dL (32.0-36.0) 03/01/17 03:55 RDW 13.6 % (12.0-15.0) 03/01/17 03:55 Plt Count TNP 03/01/17 03:55 MPV TNP 03/01/17 03:55 Neut # 6.7 10^3/uL (1.5-6.6) H 03/01/17 03:55 Lymph # 0.5 10^3/uL (1.5-3.5) L 03/01/17 03:55 Labette # 0.2 10^3/uL (0.0-1.0) 03/01/17 03:55 Eos # 0.0 10^3/uL (0.0-0.7) 03/01/17 03:55 Baso # 0.0 10^3/uL (0.0-0.1) 03/01/17 03:55 Absolute Nucleated RBC 0.01 x10^3/uL 03/01/17 03:55 Nucleated RBC % 0.1 /100WBC 03/01/17 03:55 Manual Slide Review Indicated 03/01/17 03:55 Platelet Estimate NORMAL (130-450,000) (NORMAL) 03/01/17 03:55 Platelet Morphology PLATELET CLUMPING (NORMAL) 03/01/17 03:55 RBC Morph Micro Appear NORMAL APPEARANCE (NORMAL) 03/01/17 03:55 PT 12.8 secs (9.9-12.6) H 03/01/17 03:55 INR 1.1 (0.8-1.2) 03/01/17 03:55 Bld Gas Analysis Time 07:12 03/01/17 07:12 Sample Site RIGHT RADIAL 03/01/17 07:12 ABG pH 7.34 (7.35-7.45) L 03/01/17 07:12 ABG pCO2 44 mmHg (34-45) 03/01/17 07:12 ABG pO2 73 mmHg (80-100) L 03/01/17 07:12 ABG HCO3 23.3 mmol/L (22.0-26.0) 03/01/17 07:12 ABG Total CO2 24.7 MMOL/L (21.0-29.0) 03/01/17 07:12 ABG O2 Saturation 94 % (94-98) 03/01/17 07:12 ABG Oximetry Spot Check 87 % 02/28/17 11:43 ABG Base Excess -2.5 mmol/L (-2.0-3.0) L 03/01/17 07:12 Sanjay Test POSITIVE 03/01/17 07:12 O2 Delivery Device NASAL CANNULA 03/01/17 07:12 O2 Liters/Min 4.00 LPM 03/01/17 07:12 FiO2 60.00 02/28/17 17:52 EPAP 5 cmH2O 02/28/17 17:52 IPAP 16 cmH2O 02/28/17 17:52 Sodium 140 mmol/L (135-145) 03/01/17 03:55 Potassium 3.5 mmol/L (3.5-5.0) 03/01/17 03:55 Chloride 100 mmol/L (101-111) L 03/01/17 03:55 Carbon Dioxide 25 mmol/L (21-32) 03/01/17 03:55 Anion Gap 15.0 (6-13) H 03/01/17 03:55 BUN 56 mg/dL (6-20) H 03/01/17 03:55 Creatinine 2.5 mg/dL (0.6-1.2) H 03/01/17 03:55 Estimated GFR (MDRD) 26 (>89) L 03/01/17 03:55 Glucose 247 mg/dL (70-100) H 03/01/17 03:55 POC Whole Bld Glucose 290 mg/dL (70 - 100) H 03/01/17 16:49 Glycated Hemoglobin 7.5 % (4.6-6.2) H 03/01/17 03:55 Estim Average Glucose 169 (70-100) H 03/01/17 03:55 Lactic Acid 0.8 mmol/L (0.5-2.2) 02/28/17 07:43 Calcium 7.8 mg/dL (8.5-10.3) L 03/01/17 03:55 Phosphorus 3.6 mg/dL (2.5-4.6) 03/01/17 03:55 Magnesium 2.2 mg/dL (1.7-2.8) 03/01/17 03:55 Total Bilirubin 0.9 mg/dL (0.2-1.0) 03/01/17 03:55 AST 56 IU/L (10-42) H 03/01/17 03:55 ALT 37 IU/L (10-60) 03/01/17 03:55 Alkaline Phosphatase 60 IU/L (42-121) 03/01/17 03:55 Ammonia 26.0 umol/L (7-35) 02/28/17 14:24 Troponin I 0.08 ng/mL (<0.49) 02/28/17 16:14 B-Natriuretic Peptide 272 pg/mL (5-100) H 03/01/17 03:55 Total Protein 6.8 g/dL (6.7-8.2) 03/01/17 03:55 Albumin 3.1 g/dL (3.2-5.5) L 03/01/17 03:55 Globulin 3.7 g/dL (2.1-4.2) 03/01/17 03:55 Albumin/Globulin Ratio 0.8 (1.0-2.2) L 03/01/17 03:55 Lipase 16 U/L (22-51) L 02/28/17 07:43 Urine Color DARK YELLOW 02/28/17 11:17 Urine Clarity CLOUDY (CLEAR) 02/28/17 11:17 Urine pH 6.0 PH (5.0-7.5) 02/28/17 11:17 Ur Specific [place] 1.025 (1.002-1.030) 02/28/17 11:17 Urine Protein 100 mg/dL (NEGATIVE) H 02/28/17 11:17 Urine Glucose (UA) NEGATIVE mg/dL (NEGATIVE) 02/28/17 11:17 Urine Ketones NEGATIVE mg/dL (NEGATIVE) 02/28/17 11:17 Urine Occult Blood LARGE (NEGATIVE) H 02/28/17 11:17 Urine Nitrite NEGATIVE (NEGATIVE) 02/28/17 11:17 Urine Bilirubin NEGATIVE (NEGATIVE) 02/28/17 11:17 Urine Urobilinogen 0.2 (NORMAL) E.U./dL (NORMAL) 02/28/17 11:17 Ur Leukocyte Esterase MODERATE (NEGATIVE) H 02/28/17 11:17 Urine RBC TNTC /HPF (0-5) H 02/28/17 11:17 Urine WBC >25 /HPF (0-3) H 02/28/17 11:17 Ur Squamous Epith Cells NONE SEEN (<= Few) 02/28/17 11:17 Urine Bacteria Many /HPF (None Seen) H 02/28/17 11:17 Ur Microscopic Review INDICATED 02/28/17 11:17 Urine Culture Comments INDICATED 02/28/17 11:17
[2017-03-01] MEDS: SERTRALINE 50 MG TABLET PO SCH (20:38)
[2017-03-01] MEDS: QUEtiapine 100 MG TABLET PO SCH (20:38)
[2017-03-02] MEDS: methylPREDNISolone SUCCINATE 40 MG/ML VIAL IVP SCH ×3 (00:15→12:25)
[2017-03-02] MEDS: SODIUM CHLORIDE FLUSH 0.9% 10 ML SYRINGE IVP PRN (00:15)
[2017-03-02 05:12] LABS: ALBUMIN 3.1 g/dL (3.2-5.5); ALBUMIN/GLOBULIN RATIO 0.9 (1.0-2.2); BASOPHILS % (AUTO) 0.2 %; BILIRUBIN,TOTAL 0.8 mg/dL (0.2-1.0); CALCIUM 8.3 mg/dL (8.5-10.3); CREATININE 1.6 mg/dL (0.6-1.2); HGB - HEMOGLOBIN 12.7 g/dL (14.0-18.0); LYMPHOCYTES # (AUTO) 0.4 10^3/uL (1.5-3.5); LYMPHOCYTES % (AUTO) 4.9 %; MAGNESIUM 2.4 mg/dL (1.7-2.8); MEAN CORPUSCULAR HEMOGLOBIN 31.6 pg (27.0-31.0); MEAN CORPUSCULAR HGB CONC 33.1 g/dL (32.0-36.0); MEAN CORPUSCULAR VOLUME 95.6 fL (80.0-94.0); MEAN PLATELET VOLUME 7.6 fL (7.4-11.4); MONOCYTES # (AUTO) 0.3 10^3/uL (0.0-1.0); NEUTROPHILS # (AUTO) 7.8 10^3/uL (1.5-6.6); NEUTROPHILS % (AUTO) 90.9 %; PHOSPHORUS 2.8 mg/dL (2.5-4.6); PLT - PLATELET COUNT 162 10^3/uL (130-450); RED BLOOD COUNT 4.02 10^6/uL (4.70-6.10); RED CELL DISTRIBUTION WIDTH 13.3 % (12.0-15.0); TOTAL PROTEIN 6.7 g/dL (6.7-8.2); WHITE BLOOD COUNT 8.6 x10^3/uL (4.8-10.8)
[2017-03-02] MEDS: SODIUM CHLORIDE FLUSH 0.9% 10 ML SYRINGE IVP SCH ×3 (06:15→14:02)
[2017-03-02] MEDS: PANTOPRAZOLE 40 MG VIAL IVP SCH (06:15)
[2017-03-02] MEDS: IPRATROPIUM/ALBUTEROL 3 ML NEB INH PRN ×2 (07:41→13:01)
[2017-03-02] MEDS: ENOXAPARIN 40 MG/0.4 ML SYRINGE SUBQ SCH (08:15)
[2017-03-02] MEDS: ASPIRIN CHEW 81 MG TABLET PO SCH (08:16)
[2017-03-02] MEDS: AMIODARONE 200 MG TABLET PO SCH (08:16)
[2017-03-02] MEDS: FERROUS SULFATE 325 MG TABLET PO SCH (08:16)
[2017-03-02] MEDS: POTASSIUM CHLORIDE 20 MEQ TABLET PO SCH (08:16)
[2017-03-02] MEDS: SACCHAROMYCES BOULARDII 250 MG CAPSULE PO SCH ×2 (08:17→17:21)
[2017-03-02] MEDS: NICOTINE 21 MG PATCH TOP SCH (08:17)
[2017-03-02] MEDS: INSULIN GLARGINE 300 UNIT/3 ML PEN SUBQ SCH ×2 (08:18→20:44)
[2017-03-02] MEDS: INSULIN ASPART 300 UNIT/3 ML PEN SUBQ SCH ×4 (08:19→20:44)
[2017-03-02] MEDS: CHLORHEXIDINE GLUCONATE 15 ML UDC PO SCH ×2 (08:22→20:43)
[2017-03-02] MEDS ORDERED: VANCOMYCIN PER PHARMACY 1 GM in SODIUM CHLORIDE 0.9% 250 ML IV SCH (11:00)
[2017-03-02] MEDS ORDERED: SODIUM CHLORIDE FLUSH 0.9% 10 ML SYRINGE ONE (12:11)
[2017-03-02] MEDS ORDERED: SODIUM CHLORIDE 0.9% MINIBAG 100 ML IV ONE (12:12)
[2017-03-02] MEDS: VANCOMYCIN INJ 1 GM in SODIUM CHLORIDE 0.9% 250 ML IV SCH ×2 (12:18→23:53)
[2017-03-02] MEDS ORDERED: predniSONE 20 MG TABLET PO SCH (13:00)
--- NOTE | 2017-03-02 18:17 | PROVIDER PROGRESS NOTE ---
Assessment/Plan - Problem List (1) Acute respiratory failure with hypoxia and hypercapnia Assessment/Plan: Resolved with BiPAP Continues to improve Down to 1.5 L of O2 Patient has improved with lasix, nebs and steroids (2) CHF exacerbation Conclusion/Plan: Patient had flash pulmonary edema after receiving IVF in ER for hypotension Patient is much improved after IV lasix with good output Off BiPAP On 1.5L of O2 Resting comfortably New echo shows normal EF and no valvular abnormalities EF likely improved with meds Lasix stopped Continue to Wean O2 Qualifiers: Congestive heart failure type: systolic Qualified Code(s): I50.23 - Acute on chronic systolic (congestive) heart failure (3) Urinary tract infection Conclusion/Plan: Patient presented with generalized weakness and hypotension and appeared dehydrated Likely secondary to UTI UA positive and patient very weak Given IV levaquin day 3 Blood cx negative Urine culture grew enterococcus faecalis which was resistant to levquin which the patient has been on Will stop levaquin and start IV vancomycin today so patient can get at least 1 day of IV vanco and then consider discharging with PO nitrofurantoin PT evaluated patient today and he is doing well they will continue to see him while he is hospitalized Qualifiers: Urinary tract infection type: acute cystitis Hematuria presence: with hematuria Qualified Code(s): N30.01 - Acute cystitis with hematuria (4) Acute encephalopathy Conclusion/Plan: Resolved was likely secondary to hypercapnea from respiratory failure (5) COPD (chronic obstructive pulmonary disease) Conclusion/Plan: Patient presented with mild hypoxia and cough Initial CXR was negative but patient was tight on exam Patient went into respiratory failure likely secondary to fluid overload but there does appear to be some component of COPD exacerbation Improving Continue nebs, steroids, O2 Switch to PO prednisone today Qualifiers: COPD type: COPD with acute exacerbation Qualified Code(s): J44.1 - Chronic obstructive pulmonary disease with (acute) exacerbation (6) Acute kidney injury superimposed on chronic kidney disease Conclusion/Plan: Patient has CKD with call centre supervisor of 2.1 in 11/2016 but presents with call centre supervisor of 3.2 and BUN of 55 Likely acute on chronic renal failure due to UTI and dehydration as patient was hypotensive on presentation Patient given 2L of IVF but had flash pulmonary edema Pocket Cutter improved to 1.6 Monitor Pocket Cutter Avoid nephrotoxic agents (7) Diabetes Conclusion/Plan: BG continues to be elevated Dean has CKD secondary to DM Continue home dose of lantus Placed on SS insulin and DM diet MONitor BG ACHS HbA1C Qualifiers: Diabetes mellitus type: type 2 Diabetes mellitus complication status: with kidney complications Diabetes mellitus complication detail: with chronic kidney disease Diabetes mellitus residential insulin use: with terminal system operator use Chronic kidney disease stage: stage 3 (moderate) Qualified Code(s): E11.22 - Type 2 diabetes mellitus with diabetic chronic kidney disease; N18.3 - Chronic kidney disease, stage 3 (moderate); N18.3 - Chronic kidney disease, stage 3 ( moderate); Z79.4 - terminal computer operator (current) use of insulin; Z79.4 - terminal computer operator ( current) use of insulin; Z79.4 - terminal computer operator (current) use of insulin; Z79.4 - halfway (current) use of insulin (8) Hypertension Conclusion/Plan: Patients BP improved Monitor Qualifiers: Hypertension type: essential hypertension Qualified Code(s): I10 - Essential (primary) hypertension (9) Atrial fibrillation Conclusion/Plan: Patient has history of A fib Rate is controlled and patient in SR on EKG On Coreg at home Which was held due to hypotension but patients rate still stable Patient has CHADS2 score of 3 and should be on anticoagulation Patient will need to follow up with his PCP and consider anticoagulation as an outpatient Qualifiers: Atrial fibrillation type: paroxysmal Qualified Code(s): I48.0 - Paroxysmal atrial fibrillation (10) Tobacco abuse Conclusion/Plan: Smokes 2 PPD Placed on nicotine patch and counseled - Current Meds Current Meds: Current Medications Generic Name Dose Route Start Last Admin Trade Name Freq PRN Reason Stop Dose Admin Albuterol/Ipratropium 3 ml 02/28/17 15:00 03/02/17 13:01 Duoneb INH 3 ml RTQ4H PRN Administration Wheezing Amiodarone HCl 200 mg 02/28/17 13:00 03/02/17 08:16 Pacerone PO 200 mg DAILY JAMI Administration Aspirin 81 mg 02/28/17 13:00 03/02/17 08:16 St Nick Aspirin PO 81 mg DAILY JAMI Administration Chlorhexidine Gluconate 15 ml 02/28/17 21:00 03/02/17 08:22 Peridex PO 15 ml BID JAMI Administration Enoxaparin Sodium 40 mg 03/01/17 09:00 03/02/17 08:15 Lovenox SUBQ 40 mg DAILY JAMI Administration Ferrous Sulfate 325 mg 03/01/17 09:00 03/02/17 08:16 Feosol PO 325 mg DAILY JAMI Administration Vancomycin HCl 1 gm/ Sodium 250 mls @ 167 mls/hr 03/02/17 11:00 03/02/17 14: 00 Chloride IV Infused Q12H JAMI Infusion Insulin Aspart 2 - 10 unit 03/01/17 17:15 03/02/17 16:55 Novolog SUBQ 6 unit 0800,1200,1700,2100 JAMI Administration Protocol Insulin Glargine 30 unit 02/28/17 21:00 03/02/17 08:18 Lantus Solostar SUBQ 30 unit BID JAMI Administration Lorazepam 1 mg 02/28/17 14:02 02/28/17 14:22 Ativan Inj (Vial) IVP 1 mg Q2H PRN Administration Anxiety Nicotine 1 patch 02/28/17 14:00 03/02/17 08:17 Nicoderm TOP 1 patch DAILY JAMI Administration Pantoprazole Sodium 40 mg 03/01/17 07:00 03/02/17 06:15 Protonix IVP 40 mg QDAC JAMI Administration Potassium Chloride 20 meq 03/01/17 08:00 03/02/17 08:16 K-Dur PO 20 meq DAILYWM JAMI Administration Quetiapine Fumarate 50 mg 02/28/17 21:00 03/01/17 20:38 Seroquel PO 50 mg QPM JAMI Administration Saccharomyces Boulardii 250 mg 02/28/17 17:00 03/02/17 17:21 Florastor PO 250 mg BIDWM JAMI Administration Sertraline HCl 100 mg 02/28/17 21:00 03/01/17 20:38 Zoloft PO 100 mg QPM JAMI Administration Sodium Chloride 10 ml 02/28/17 14:00 03/02/17 14:02 Normal Saline Flush 0.9% IVP 10 ml Q8HR JAMI Administration Sodium Chloride 10 ml 02/28/17 12:05 03/02/17 00:15 Normal Saline Flush 0.9% IVP 10 ml PRN PRN Administration NEEDED PER PROVIDER ORDERS - Lab Result Lab results reviewed: Yes Fish Bone Diagrams: 03/02/17 04:10 03/02/17 04:10 - Additional Planning Condition/Complexity: Improved My Orders: My Active Orders 01/24/18 17:15 Insulin Aspart [NovoLOG] 2 - 10 unit SUBQ 0800,1200,1700,2100 03/02/17 11:00 Vancomycin Inj [Vancomycin] 1 gm Sodium Chloride 0.9% [Normal Saline 0.9%] 250 ml IV Q12H 03/03/17 08:00 predniSONE [Deltasone] 40 mg PO DAILYWM 03/03/17 22:30 VANCOMYCIN TROUGH [CHEM] Timed Consult/Specialty: PT Plan Discussed with:: Patient Time Spent: 31-60 minutes Subjective - Subjective Patient Reports: Feeling Better, Resting Comfortably, Fatigue, Other (Weak but improving) Objective Vital Signs: Vital Signs - 24 hr 03/01/17 03/01/17 03/02/17 19:08 22:52 00:04 Temperature 36.9 C 36.6 C 36.7 C Heart Rate Heart Rate [ Brachial] Heart Rate [ 72 76 63 Monitoring electrodes] Respiratory 20 22 22 Rate Blood Pressure 109/52 L 116/63 97/45 L [Right Brachial artery] O2 Saturation 94 92 97 03/02/17 03/02/17 03/02/17 04:49 07:30 07:41 Temperature 36.6 C 36.5 C Heart Rate 78 Heart Rate [ 76 Brachial] Heart Rate [ 88 Monitoring electrodes] Respiratory 22 18 22 Rate Blood Pressure 134/77 H 109/69 [Right Brachial artery] O2 Saturation 91 L 94 03/02/17 03/02/17 03/02/17 08:18 13:01 13:54 Temperature Heart Rate 75 Heart Rate [ 80 Brachial] Heart Rate [ Monitoring electrodes] Respiratory 22 20 Rate Blood Pressure 109/69 121/89 H [Right Brachial artery] O2 Saturation 92 03/02/17 16:51 Temperature 97.7 C H Heart Rate Heart Rate [ 74 Brachial] Heart Rate [ Monitoring electrodes] Respiratory 23 Rate Blood Pressure 104/69 [Right Brachial artery] O2 Saturation 91 L Oxygen O2 Source Nasal cannula I&O (Last 24 Hrs): Intake and Output Totals x24h 02/28/17 03/01/17 03/02/17 23:59 23:59 23:59 Intake Total 550.0 2440 1871 Output Total 2510 2140 1925 Balance -1960.0 300 -54 General: Alert, Oriented x3, Cooperative, No acute distress HEENT: Atraumatic, PERRLA, EOMI, Mucous membr. moist/pink Neck: Supple, No JVD, No thyromegaly, +2 carotid pulse wo bruit, No LAD Lymphatic: no adenopathy Neuro: Alert, Non Focal, CN 2-12 Grossly Intact, Oriented Times 3 Cardiovascular: Normal S1, Normal S2, No murmurs, Other (Irregular) Respiratory: Chest non-tender, No respiratory distress, Wheezes (Scattered) Abdomen: Normal bowel sounds, Soft, No tenderness, No hepatospenomegaly Extremities: No clubbing, No cyanosis, No edema, Normal pulses, No tenderness/ swelling Skin: No rashes, No breakdown - Results Results: Laboratory Results WBC 8.6 x10^3/uL (4.8-10.8) 03/02/17 04:10 RBC 4.02 10^6/uL (4.70-6.10) L 03/02/17 04:10 Hgb 12.7 g/dL (14.0-18.0) L 03/02/17 04:10 Hct 38.4 % (42.0-52.0) L 03/02/17 04:10 MCV 95.6 fL (80.0-94.0) H 03/02/17 04:10 MCH 31.6 pg (27.0-31.0) H 03/02/17 04:10 MCHC 33.1 g/dL (32.0-36.0) 03/02/17 04:10 RDW 13.3 % (12.0-15.0) 03/02/17 04:10 Plt Count 162 10^3/uL (130-450) 03/02/17 04:10 MPV 7.6 fL (7.4-11.4) 03/02/17 04:10 Neut # 7.8 10^3/uL (1.5-6.6) H 03/02/17 04:10 Lymph # 0.4 10^3/uL (1.5-3.5) L 03/02/17 04:10 Haralson # 0.3 10^3/uL (0.0-1.0) 03/02/17 04:10 Eos # 0.0 10^3/uL (0.0-0.7) 03/02/17 04:10 Baso # 0.0 10^3/uL (0.0-0.1) 03/02/17 04:10 Absolute Nucleated RBC 0.00 x10^3/uL 03/02/17 04:10 Nucleated RBC % 0.0 /100WBC 03/02/17 04:10 Manual Slide Review Indicated 03/01/17 03:55 Platelet Estimate NORMAL (130-450,000) (NORMAL) 03/01/17 03:55 Platelet Morphology PLATELET CLUMPING (NORMAL) 03/01/17 03:55 RBC Morph Micro Appear NORMAL APPEARANCE (NORMAL) 03/01/17 03:55 PT 12.8 secs (9.9-12.6) H 03/01/17 03:55 INR 1.1 (0.8-1.2) 03/01/17 03:55 Bld Gas Analysis Time 07:12 03/01/17 07:12 Sample Site RIGHT RADIAL 03/01/17 07:12 ABG pH 7.34 (7.35-7.45) L 03/01/17 07:12 ABG pCO2 44 mmHg (34-45) 03/01/17 07:12 ABG pO2 73 mmHg (80-100) L 03/01/17 07:12 ABG HCO3 23.3 mmol/L (22.0-26.0) 03/01/17 07:12 ABG Total CO2 24.7 MMOL/L (21.0-29.0) 03/01/17 07:12 ABG O2 Saturation 94 % (94-98) 03/01/17 07:12 ABG Oximetry Spot Check 87 % 02/28/17 11:43 ABG Base Excess -2.5 mmol/L (-2.0-3.0) L 03/01/17 07:12 Sanjay Test POSITIVE 03/01/17 07:12 O2 Delivery Device NASAL CANNULA 03/01/17 07:12 O2 Liters/Min 4.00 LPM 03/01/17 07:12 FiO2 60.00 02/28/17 17:52 EPAP 5 cmH2O 02/28/17 17:52 IPAP 16 cmH2O 02/28/17 17:52 Sodium 139 mmol/L (135-145) 03/02/17 04:10 Potassium 3.6 mmol/L (3.5-5.0) 03/02/17 04:10 Chloride 103 mmol/L (101-111) 03/02/17 04:10 Carbon Dioxide 26 mmol/L (21-32) 03/02/17 04:10 Anion Gap 10.0 (6-13) 03/02/17 04:10 BUN 55 mg/dL (6-20) H 03/02/17 04:10 Creatinine 1.6 mg/dL (0.6-1.2) H 03/02/17 04:10 Estimated GFR (MDRD) 43 (>89) L 03/02/17 04:10 Glucose 193 mg/dL (70-100) H 03/02/17 04:10 POC Whole Bld Glucose 232 mg/dL (70 - 100) H 03/02/17 16:50 Glycated Hemoglobin 7.5 % (4.6-6.2) H 03/01/17 03:55 Estim Average Glucose 169 (70-100) H 03/01/17 03:55 Lactic Acid 0.8 mmol/L (0.5-2.2) 02/28/17 07:43 Calcium 8.3 mg/dL (8.5-10.3) L 03/02/17 04:10 Phosphorus 2.8 mg/dL (2.5-4.6) 03/02/17 04:10 Magnesium 2.4 mg/dL (1.7-2.8) 03/02/17 04:10 Total Bilirubin 0.8 mg/dL (0.2-1.0) 03/02/17 04:10 AST 37 IU/L (10-42) 03/02/17 04:10 ALT 33 IU/L (10-60) 03/02/17 04:10 Alkaline Phosphatase 61 IU/L (42-121) 03/02/17 04:10 Ammonia 26.0 umol/L (7-35) 02/28/17 14:24 Troponin I 0.08 ng/mL (<0.49) 02/28/17 16:14 B-Natriuretic Peptide 212 pg/mL (5-100) H 03/02/17 04:10 Total Protein 6.7 g/dL (6.7-8.2) 03/02/17 04:10 Albumin 3.1 g/dL (3.2-5.5) L 03/02/17 04:10 Globulin 3.6 g/dL (2.1-4.2) 03/02/17 04:10 Albumin/Globulin Ratio 0.9 (1.0-2.2) L 03/02/17 04:10 Lipase 16 U/L (22-51) L 02/28/17 07:43 Urine Color DARK YELLOW 02/28/17 11:17 Urine Clarity CLOUDY (CLEAR) 02/28/17 11:17 Urine pH 6.0 PH (5.0-7.5) 02/28/17 11:17 Ur Specific [place] 1.025 (1.002-1.030) 02/28/17 11:17 Urine Protein 100 mg/dL (NEGATIVE) H 02/28/17 11:17 Urine Glucose (UA) NEGATIVE mg/dL (NEGATIVE) 02/28/17 11:17 Urine Ketones NEGATIVE mg/dL (NEGATIVE) 02/28/17 11:17 Urine Occult Blood LARGE (NEGATIVE) H 02/28/17 11:17 Urine Nitrite NEGATIVE (NEGATIVE) 02/28/17 11:17 Urine Bilirubin NEGATIVE (NEGATIVE) 02/28/17 11:17 Urine Urobilinogen 0.2 (NORMAL) E.U./dL (NORMAL) 02/28/17 11:17 Ur Leukocyte Esterase MODERATE (NEGATIVE) H 02/28/17 11:17 Urine RBC TNTC /HPF (0-5) H 02/28/17 11:17 Urine WBC >25 /HPF (0-3) H 02/28/17 11:17 Ur Squamous Epith Cells NONE SEEN (<= Few) 02/28/17 11:17 Urine Bacteria Many /HPF (None Seen) H 02/28/17 11:17 Ur Microscopic Review INDICATED 02/28/17 11:17 Urine Culture Comments INDICATED 02/28/17 11:17
[2017-03-02] MEDS: SERTRALINE 50 MG TABLET PO SCH (20:44)
[2017-03-02] MEDS: QUEtiapine 100 MG TABLET PO SCH (20:45)
[2017-03-03 05:03] LABS: BASOPHILS % (AUTO) 0.4 %; HGB - HEMOGLOBIN 13.3 g/dL (14.0-18.0); LYMPHOCYTES # (AUTO) 0.6 10^3/uL (1.5-3.5); LYMPHOCYTES % (AUTO) 7.3 %; MEAN CORPUSCULAR HEMOGLOBIN 31.6 pg (27.0-31.0); MEAN CORPUSCULAR HGB CONC 33.7 g/dL (32.0-36.0); MEAN CORPUSCULAR VOLUME 93.9 fL (80.0-94.0); MEAN PLATELET VOLUME 7.1 fL (7.4-11.4); MONOCYTES # (AUTO) 0.6 10^3/uL (0.0-1.0); MONOCYTES % (AUTO) 7.4 %; NEUTROPHILS # (AUTO) 6.7 10^3/uL (1.5-6.6); NEUTROPHILS % (AUTO) 84.9 %; PLT - PLATELET COUNT 169 10^3/uL (130-450); RED BLOOD COUNT 4.22 10^6/uL (4.70-6.10); RED CELL DISTRIBUTION WIDTH 13.3 % (12.0-15.0); WHITE BLOOD COUNT 7.9 x10^3/uL (4.8-10.8)
[2017-03-03 05:16] LABS: ALBUMIN 3.1 g/dL (3.2-5.5); ALBUMIN/GLOBULIN RATIO 0.9 (1.0-2.2); BILIRUBIN,TOTAL 0.9 mg/dL (0.2-1.0); CALCIUM 8.5 mg/dL (8.5-10.3); CREATININE 1.3 mg/dL (0.6-1.2); MAGNESIUM 2.4 mg/dL (1.7-2.8); PHOSPHORUS 2.5 mg/dL (2.5-4.6); TOTAL PROTEIN 6.7 g/dL (6.7-8.2)
[2017-03-03] MEDS ORDERED: SODIUM CHLORIDE FLUSH 0.9% 10 ML SYRINGE ONE (06:25)
[2017-03-03] MEDS: SODIUM CHLORIDE FLUSH 0.9% 10 ML SYRINGE IVP SCH ×2 (06:30→12:53)
[2017-03-03] MEDS: PANTOPRAZOLE 40 MG VIAL IVP SCH (06:30)
[2017-03-03] MEDS ORDERED: predniSONE 20 MG TABLET PO SCH (08:00)
[2017-03-03] MEDS: INSULIN ASPART 300 UNIT/3 ML PEN SUBQ SCH ×2 (08:23→11:31)
[2017-03-03] MEDS: NICOTINE 21 MG PATCH TOP SCH (08:53)
[2017-03-03] MEDS: AMIODARONE 200 MG TABLET PO SCH (08:54)
[2017-03-03] MEDS: CHLORHEXIDINE GLUCONATE 15 ML UDC PO SCH (08:54)
[2017-03-03] MEDS: SACCHAROMYCES BOULARDII 250 MG CAPSULE PO SCH (08:54)
[2017-03-03] MEDS: ENOXAPARIN 40 MG/0.4 ML SYRINGE SUBQ SCH (08:54)
[2017-03-03] MEDS: ASPIRIN CHEW 81 MG TABLET PO SCH (08:55)
[2017-03-03] MEDS: POTASSIUM CHLORIDE 20 MEQ TABLET PO SCH (08:55)
[2017-03-03] MEDS: FERROUS SULFATE 325 MG TABLET PO SCH (08:55)
[2017-03-03] MEDS: INSULIN GLARGINE 300 UNIT/3 ML PEN SUBQ SCH (08:56)
--- NOTE | 2017-03-03 09:21 | Discharge Plan ---
Discharge Plan Disposition: 01 Home, Self Care Condition: Stable Prescriptions: Nitrofurantoin Macrocrystal [Macrodantin] 100 mg PO BID #10 capsule predniSONE [Prednisone] 10 mg PO DAILY #6 tablet Diet: Diabetic Activity Restrictions: Activity as Tolerated Shower Restrictions: No Driving Restrictions: No Instruction Topics: UTI, Disease Chronic Lung Quit Smoking, COPD Additional Instructions or Follow Up instructions: Take the Prednisone (steroid pill) for your emphysema: 3 pills (all at once) tomorrow, then 2 pills the next day, then 1 pill the next day, then done. Take the antibiotics until the pills are done, for your urinary tract infection. Resume all your other medications as you took before this hospitalization. See your doctor in 1-2 weeks in follow-up. STOP SMOKING. A topical Nicoderm patch can be used to help decrease the urge for nicotine. No Smoking: If you smoke, Please STOP! Call for help. Follow-up with: Camilla Tom MD [Primary Care Provider] -
--- NOTE | 2017-03-03 10:50 | Discharge Plan ---
"Discharge Plan for SNF / [facility] - DC Plan and Transition Orders Disposition: Home, Self Care Condition: Stable SNF Transition Orders: [facility] Discharge Diagnosis: 1) UTI 2) Septic shock secondary to #1 3) Pulmonary edema secondary to iv fluids 4) COPD secondary to cigarette smoking 5) CAD history 6) Stroke history 7) Diabetes 8) Paroxysmal Afib 9) Obstructive sleep apnea Weight on admission and Monthly. Call PCP immediately if weight increases by 10 pounds or if patient develops dyspnea, chest pain/tightness or edema. House Bowel Program: Yes If no BM after 2 days, nurse may give M.O.M. 30ml PO PRN and /or ducolax Supp 1 AR and /or CARLO 250mg P.O., and/or senna 1-2 tabs PO. On day 3 nurse may give repeat above order until residents constipation is resolved. Immunizations: Annual Influenza Vaccine: Yes. (between Oct 07 and May 06.) Unless allergy or already given Two-Step PPD: Yes per [facility] [phone] or appropriate documentation of approved exceptions Treatments & Other Orders: Macrodantin antibiotic til pills done and Prednisone on a tapered schedule Oxygen Orders: None Lab Tests or X-Rays Orders: None Orthopedic Orders: None. Medications: PLEASE REFER TO THE DISCHARGE MEDICATION LIST. Insulin Orders? Yes Diagnosis: Diabetes Initiate hypo and hyperglycemia protocols for BG <70 and BG >375. May check BG prn for signs/symptoms of dysglycemia. Frequency of BG checks: ac and hs Basal Insulin: Other: Insuline Glargine as on med orders Allergies and Adverse Reactions: Allergies Allergy/AdvReac Type Severity Reaction Status Date / Time No Known Drug Allergies Allergy Verified 02/28/17 07:40 - Medications New Prescriptions: Nitrofurantoin Macrocrystal [Macrodantin] 100 mg PO BID #10 capsule predniSONE [Prednisone] 10 mg PO DAILY #6 tablet - Diet May have monthly special meal: Yes - Therapies | Activity Activity: Activity as Tolerated Additional Instructions: Take the Prednisone (steroid pill) for your emphysema: 3 pills (all at once) tomorrow, then 2 pills the next day, then 1 pill the next day, then done. Take the antibiotics until the pills are done, for your urinary tract infection. Resume all your other medications as you took before this hospitalization. See your doctor in 1-2 weeks in follow-up. STOP SMOKING. A topical Nicoderm patch can be used to help decrease the urge for nicotine."
[2017-03-03] MEDS: VANCOMYCIN INJ 1 GM in SODIUM CHLORIDE 0.9% 250 ML IV SCH (11:05)
[2017-03-03 12:58] VITALS: BP 143/68
--- NOTE | 2017-03-03 15:49 | DISCHARGE SUMMARY ---
DATE OF SERVICE: Physician: Johanne Renee MD DATE OF ADMISSION: 02/28/2017 DATE OF DISCHARGE: 03/03/2017 DATE OF ADMISSION: 02/28/2017 DATE OF DISCHARGE: 03/03/2017 This is a 71-year-old white male with history of paroxysmal atrial fibrillation , on amiodarone and aspirin, history of hypertension, CAD, CVA, CHF with a LVEF of 45%, COPD from heavy smoking, pulmonary hypertension, type 2 diabetes, obstructive sleep apnea and depression. The patient presented to the emergency room with weakness, he had collapsed in his private room of [facility] and was found to be short of breath and extremely weak, orthostatic with a blood pressure of 126 sitting and 60 standing and brought to the emergency room. He was hypotensive in the emergency room with a blood pressure of 79/59, tachypneic. He received IV fluid resuscitation of 2 liters IV fluids and 2 liters of oxygen nasal cannula. With this, he became more tachypneic and chest x-ray showed flash pulmonary edema. He required BiPAP and was given IV Lasix and placed in the ICU. His workup revealed significant urinalysis with moderate leukocyte esterase, large occult blood and greater than 25 WBCs and large bacteria. HOSPITAL COURSE AND DISCHARGE DIAGNOSES: 1. Urinary tract infection. The patient was placed on empiric IV Levaquin. Urine cultures and blood cultures were obtained. His urine culture grew Enterococcus faecalis. Blood cultures remained negative. The bacteria was resistant to his empiric Levaquin and this was therefore changed to IV vancomycin. He was discharged on a course of Macrobid 100 mg p.o. b.i.d. for the next 5 days. 2. Septic shock secondary to UTI. The patient had marked hypotension, which did respond to fluids and antibiotics. He did not require pressors while in the ICU. There was also evidence of dehydration with a creatinine of 3.2. With rehydration, at the time of discharge, this creat improved to 1.3. 3. Pulmonary edema secondary to IV fluids. The patient was placed on BiPAP and supplemental oxygen. Troponin values were negative. An echo was obtained that showed a LVEF of 60% and normal RV size and systolic function (this was improved LVEF from several months previously). The patient was able to be titrated off of his BiPAP and supplemental oxygen and was discharged without any supplemental oxygen. 4. Chronic obstructive pulmonary disease secondary to heavy cigarette smoking. The patient has a history of 2 pack a day smoking for many years. He refused to stop smoking completely when I discussed this with him and he agreed to only decrease to 1 pack a day. The patient was on steroids while here and discharged on a prednisone tapering dose of 40 mg, 30 mg, 20 mg, 10 mg, then stop. Recommendation is for outpatient pulmonary function tests when this current exacerbation has stabilized, for a possible change of inhaler use as he states that his Spiriva helps him only minimally. Since he is also on amiodarone, which be affecting pulmonary status, this may need to be adjusted by his extrusion engineer. 5. CAD history. The patient had no anginal symptoms. His prehospital medications were continued. 6. Stroke history. Stable. 7. Diabetes. The patient was on his insulin pen as well as sliding scale insulin coverage and a diabetic diet while here. His A1c done here was 7.5, indicating adequate control. 8. Paroxysmal atrial fibrillation. The patient was in normal sinus rhythm with first degree block during this entire admission. He was maintained on his amiodarone as well as aspirin for stroke prophylaxis. He was discharged on the same doses. 9. Obstructive sleep apnea history. The patient should continue with CPAP if previously ordered. IMAGING AND LABS: Reviewed and summarized above. CONDITION AT DISCHARGE: Stable. PHYSICAL EXAMINATION AT DISCHARGE: VITAL SIGNS: Blood pressure 143/68, pulse of 82 and sinus rhythm, afebrile, room air saturation 91 percent. HEENT: Unremarkable with moist oral mucosa. NECK: No JVD in a vertical position. No carotid bruits or lymphadenopathy. CHEST: Had scattered wheezes. No rhonchi. HEART: Sounds distant. No audible murmur. ABDOMEN: Soft with positive bowel sounds. EXTREMITIES: Without edema. NEUROLOGIC: Intact. DISCHARGE MEDICATIONS: 1. Amiodarone 200 mg p.o. daily. 2. Baby aspirin daily. 3. Coreg 6.25 mg b.i.d. 4. Diphenoxylate/atropine 2 tabs p.o. q.i.d. p.r.n. 5. Iron 325 mg daily. 6. Advair 1 puff b.i.d. 7. Lantus insulin 30 units subcutaneous b.i.d. 8. Lisinopril 2.5 mg daily. 9. Seroquel 50 mg q.p.m. 10. Zoloft 100 mg q.p.m. 11. Spiriva daily. 12. Demadex 80 mg p.o. b.i.d. 13. New prescriptions for Macrobid 100 mg p.o. b.i.d. for an additional 5 days and a prednisone taper dose 30 mg, 20 mg, 10 mg, then stop. ALLERGIES: NONE. CODE STATUS: FULL CODE. FOLLOWUP: With his PCP, Burr Filer if needed and if he has a box printing machine operator this is advised. Time required to complete this entire discharge: 50 minutes. TD: 03/03/2017 16:48 KERRY
== END 2017-03-03 14:00 | disposition home or self-care (01) | DRG 189 ==
LOC: EDUNIT# → ED 07:13 → ICU 12:05
PROVIDERS: ADMIT Internal Medicine; ATTEND Internal Medicine
DX: J96.01 Acute respiratory failure with hypoxia (principal); N18.9 Chronic kidney disease, unspecified; A41.81 Sepsis due to Enterococcus; R65.21 Severe sepsis with septic shock; J44.9 Chronic obstructive pulmonary disease, unspecified; I50.9 Heart failure, unspecified; I50.23 Acute on chronic systolic (congestive) heart failure; G93.40 Encephalopathy, unspecified; E87.2 Acidosis; N30.01 Acute cystitis with hematuria; N17.9 Acute kidney failure, unspecified; J96.02 Acute respiratory failure with hypercapnia; I48.0 Paroxysmal atrial fibrillation; I11.0 Hypertensive heart disease with heart failure; I25.10 Atherosclerotic heart disease of native coronary artery without angina pectoris; I27.20 Pulmonary hypertension, unspecified; E11.22 Type 2 diabetes mellitus with diabetic chronic kidney disease; N18.3 Chronic kidney disease, stage 3 (moderate); G47.33 Obstructive sleep apnea (adult) (pediatric); J43.9 Emphysema, unspecified; E86.0 Dehydration; E78.00 Pure hypercholesterolemia, unspecified; K74.60 Unspecified cirrhosis of liver; K21.9 Gastro-esophageal reflux disease without esophagitis; T50.3X5A Adverse effect of electrolytic, caloric and water-balance agents, initial encounter; Y92.238 Other place in hospital as the place of occurrence of the external cause; F17.210 Nicotine dependence, cigarettes, uncomplicated; F19.11 Other psychoactive substance abuse, in remission; F32.9 Major depressive disorder, single episode, unspecified; Z16.23 Resistance to quinolones and fluoroquinolones; Z91.81 History of falling; Z79.82 Long term (current) use of aspirin; Z86.73 Personal history of transient ischemic attack (TIA), and cerebral infarction without residual deficits; Z79.4 Long term (current) use of insulin
CPT/HCPCS: 36415; 36600; 51702; 71045; 71046; 80053; 81001; 81003; 82140; 82803; 83036; 83605; 83690; 83735; 83880; 84100; 84484; 85025; 85610; 87040; 87077; 87086; 87150; 93005; 93306; 94640; 94660; 96361; 96374; 96375; 99285

== ENCOUNTER 2017-06-19 00:49 | Outpatient (CLI) | payer MEDICARE, MEDICAID | END 2017-06-19 00:50 | disposition critical access hospital (66) | LOC: EMS 00:49 | PROVIDERS: ATTEND Surgery | DX: R06.00 Dyspnea, unspecified (principal); R50.9 Fever, unspecified; R05 Cough | CPT/HCPCS: A0425; A0427 ==

== ENCOUNTER 2017-06-19 01:09 | Inpatient (IN) | payer MEDICARE, MEDICAID ==
[2017-06-19] MEDS ORDERED: IPRATROPIUM/ALBUTEROL 3 ML NEB INH STA ×2 (01:13→01:42)
[2017-06-19] MEDS ORDERED: SODIUM CHLORIDE 0.9% 1,000 ML IV ONE ×2 (01:19→02:28)
--- NOTE | 2017-06-19 01:33 | ED Physician Documentation ---
PD HPI DYSPNEA - Stated complaint Stated Complaint: SOA - Chief complaint Chief Complaint: Resp - History obtained from History obtained from: Patient, EMS - History of Present Illness Timing - onset: Yesterday Timing - details: Gradual onset, Still present Improved by: O2, Inhaler/neb Worsened by: Exertion Associated symptoms: Fever, Cough, Wheezing, Bilateral edema Similar symptoms before: Work up / diagnostics Recently seen: Not recently seen - Additional information Additional information: patient is a 71 year old male with multiple comorbidities including CAD, copd sleep apea, who is being brought in to the emergency department for fever, cough and shortness of breath. According to patient and ems patient has had a cough for the last few days. Staff called ems because the patient was red and wasn't breathing well. When ems arrived patient's O2 saturation was 87%. He was treated with a breathing treatment and it improved his oxygenation to 97%. Upon presentation to the emergency department patient was febrile, hypoxic on room air tachypneic and hypotensive. Patient is not tachycardic but he is on a beta sarah. Review of Systems Constitutional: reports: Fever Eyes: reports: Reviewed and negative Cardiac: reports: Pedal edema. denies: Chest pain / pressure, Palpitations Respiratory: reports: Dyspnea, Cough, Wheezing GI: denies: Nausea, Vomiting : reports: Reviewed and negative Musculoskeletal: reports: Extremity swelling Neurologic: denies: Generalized weakness, Focal weakness, Numbness Immunocompromised: denies: Immunocompromised PD PAST MEDICAL HISTORY - Past Medical History Past Medical History: Yes Cardiovascular: Congestive heart failure, Hypertension, High cholesterol, Coronary artery disease, Atrial fibrillation, Valve disorder Respiratory: COPD, Sleep apnea, Other Endocrine/Autoimmune: Type 2 diabetes GI: GERD, Cirrhosis Psych: Depression - Past Surgical History Past Surgical History: Yes - Present Medications Home Medications: Ambulatory Orders Medication Instructions Recorded Confirmed Amiodarone HCl 200 mg DAILY 02/28/17 02/28/17 Aspirin 81 mg PO DAILY 02/28/17 02/28/17 Carvedilol [Coreg] 6.25 mg PO BID 02/28/17 02/28/17 Diphenoxylate HCl/Atropine 2 tab PO QID PRN 02/28/17 02/28/17 [Diphenoxylate-Atrop 2.5-0.025] Ferrous Sulfate 325 mg PO DAILY 02/28/17 02/28/17 Fluticasone/Salmeterol [Advair 1 puffs INH BID 02/28/17 02/28/17 250-50 Diskus] Insulin Glargine [Lantus Solostar] 30 units SUBQ BID 02/28/17 02/28/17 Lisinopril [Zestril] 2.5 mg PO DAILY 02/28/17 02/28/17 QUEtiapine [SEROquel] 50 mg QPM 02/28/17 02/28/17 Sertraline HCl [Zoloft] 100 mg PO QPM 02/28/17 02/28/17 Tiotropium [place] [Spiriva] 1 cap DAILY 02/28/17 02/28/17 Torsemide [Demadex] 80 mg PO BID 02/28/17 02/28/17 Urea 1 applic TOP DAILY PRN 02/28/17 02/28/17 Nitrofurantoin Macrocrystal 100 mg PO BID #10 capsule 03/03/17 [Macrodantin] predniSONE [Prednisone] 10 mg PO DAILY #6 tablet 03/03/17 - Allergies Allergies/Adverse Reactions: Allergies Allergy/AdvReac Type Severity Reaction Status Date / Time No Known Drug Allergies Allergy Verified 06/19/17 01:14 - Social History Does the pt smoke?: Yes Smoking Status: Current every day smoker Does the pt drink ETOH?: No Does the pt have substance abuse?: No - POLST Patient has POLST: Yes POLST Status: Full Code PD ED PE NORMAL - Vitals Vital signs reviewed: Yes - General General: Alert and oriented X 3 - HEENT HEENT: Atraumatic - Neck Neck: No JVD - Neuro Neuro: Alert and oriented X 3, No motor deficit, Normal speech Eye Opening: Spontaneous Motor: Obeys Commands Verbal: Oriented GCS Score: 15 PD ED PE EXPANDED - General General: Alert, Disheveled, poorly kept - HEENT HEENT: Dry mucous membranes - Cardiac Cardiac: Regular Rhythm - Respiratory Respiratory: Distress, Labored, Wheezing, Rhonchi, Right upper lobe, Right middle lobe, Right lower lobe, Left upper lobe, Left lower lobe - Extremities Extremities: Pedal edema bilateral Results - Vitals Vitals: Vital Signs - 24 hr 06/19/17 06/19/17 06/19/17 01:10 01:29 01:30 Temperature 37.1 C 38.1 C H Heart Rate 84 82 Respiratory 22 27 H Rate Blood Pressure 97/53 L O2 Saturation 97 06/19/17 01:47 Temperature Heart Rate 83 Respiratory 24 Rate Blood Pressure O2 Saturation Oxygen O2 Source Nasal cannula Oxygen Flow Rate 4 - EKG (time done) 0119 Rate: Rate (enter#) (82) Rhythm: NSR [place]: Normal Intervals: LBBB QRS: Normal Compare to prior EKG: Unchanged from prior EKG - Labs Labs: Laboratory Tests 06/19/17 06/19/17 06/19/17 01:38 01:38 01:38 WBC 11.3 H RBC 3.79 L Hgb 11.8 L Hct 35.0 L MCV 92.4 MCH 31.1 H MCHC 33.7 RDW 13.0 Plt Count 186 MPV 7.2 L Neut # 9.2 H Lymph # 1.2 L [place] # 0.7 Eos # 0.1 Baso # 0.1 Absolute Nucleated RBC 0.00 Nucleated RBC % 0.0 Sodium 137 Potassium 3.6 Chloride 97 L Carbon Dioxide 31 Anion Gap 9.0 BUN 34 H Creatinine 1.8 H Estimated GFR (MDRD) 37 L Glucose 111 H Lactic Acid Calcium 8.1 L Phosphorus 3.0 Magnesium 2.3 Total Bilirubin 0.7 AST 16 ALT 14 Alkaline Phosphatase 75 Troponin I < 0.04 B-Natriuretic Peptide Total Protein 6.9 Albumin 3.3 Globulin 3.6 Albumin/Globulin Ratio 0.9 L Lipase 18 L 06/19/17 06/19/17 01:38 01:38 WBC RBC Hgb Hct MCV MCH MCHC RDW Plt Count MPV Neut # Lymph # [place] # Eos # Baso # Absolute Nucleated RBC Nucleated RBC % Sodium Potassium Chloride Carbon Dioxide Anion Gap BUN Creatinine Estimated GFR (MDRD) Glucose Lactic Acid 0.8 Calcium Phosphorus Magnesium Total Bilirubin AST ALT Alkaline Phosphatase Troponin I B-Natriuretic Peptide 118 H Total Protein Albumin Globulin Albumin/Globulin Ratio Lipase - Rads (name of study) chest x-ray Radiology: Final report received (mild pulmonary congestion, atelectasis vs infiltrate) PD MEDICAL DECISION MAKING - ED course Complexity details: reviewed old records, reviewed results, re-evaluated patient , considered differential, d/w patient, d/w road consultant ED course: Patient was seen and examined at bedside. IV access was gained and labs were drawn. ekg was performed and was unchanged from previous. Patient was started on a fluid bolus. chest x-ray was ordered and cultures were drawn. patient was treated with tyelenol for fever. Patient was started on duoneb treatment. When patient returned from imaging the fluid bolus was continued and patient's blood pressure had improved. patient was started on rocephin, solumedrol and additional duoneb. Hospitalist was contacted and the case was discussed with her. patient was admitted for pneumonia, sepsis, copd and hypoxia. Patient was admitted in stable condition. Departure - Departure Disposition: 66 [facility] DC/Xfer Clinical Impression: COPD (chronic obstructive pulmonary disease), Pneumonia, SIRS (systemic inflammatory response syndrome) Condition: Stable
[2017-06-19 01:50] LABS: BASOPHILS # (AUTO) 0.1 10^3/uL (0.0-0.1); BASOPHILS % (AUTO) 0.5 %; EOSINOPHILS # (AUTO) 0.1 10^3/uL (0.0-0.7); EOSINOPHILS % (AUTO) 1.1 %; HGB - HEMOGLOBIN 11.8 g/dL (14.0-18.0); LYMPHOCYTES # (AUTO) 1.2 10^3/uL (1.5-3.5); MEAN CORPUSCULAR HEMOGLOBIN 31.1 pg (27.0-31.0); MEAN CORPUSCULAR HGB CONC 33.7 g/dL (32.0-36.0); MEAN CORPUSCULAR VOLUME 92.4 fL (80.0-94.0); MEAN PLATELET VOLUME 7.2 fL (7.4-11.4); MONOCYTES # (AUTO) 0.7 10^3/uL (0.0-1.0); MONOCYTES % (AUTO) 6.1 %; NEUTROPHILS # (AUTO) 9.2 10^3/uL (1.5-6.6); NEUTROPHILS % (AUTO) 81.3 %; PLT - PLATELET COUNT 186 10^3/uL (130-450); RED BLOOD COUNT 3.79 10^6/uL (4.70-6.10); WHITE BLOOD COUNT 11.3 x10^3/uL (4.8-10.8)
--- NOTE | 2017-06-19 01:50 | XRAY Preliminary Report ---
Exam: XR CHEST 1 VIEW X-RAY IMPRESSION: 1. Borderline heart size and pulmonary vascular congestion. 2. Elevated right hemidiaphragm with bibasilar atelectasis or infiltrate. [facility] SITE ID: [id number]
--- NOTE | 2017-06-19 01:50 | XRAY Report ---
EXAM: CHEST RADIOGRAPHY EXAM DATE: 06/19/2017 01:38 AM. CLINICAL HISTORY: Fever, productive cough. Shortness of breath. COMPARISON: None. TECHNIQUE: 1 view. FINDINGS: Lungs/Pleura: Pulmonary vascular congestion. Elevated right hemidiaphragm with bibasilar atelectasis or infiltrate. No definite pleural effusion. No pneumothorax. Mediastinum: Heart size upper normal. Other: None. IMPRESSION: 1. Borderline heart size and pulmonary vascular congestion. 2. Elevated right hemidiaphragm with bibasilar atelectasis or infiltrate. [facility] Referring Provider Line: [phone] SITE ID: [id number]
[2017-06-19] MEDS ORDERED: methylPREDNISolone SUCCINATE 125 MG/2 ML VIAL IVP STA (01:54)
[2017-06-19] MEDS ORDERED: cefTRIAXone 2 GM in SODIUM CHLORIDE 0.9% MINIBAG 100 ML IV STA (01:54)
[2017-06-19] MEDS ORDERED: ACETAMINOPHEN 500 MG TABLET PO STA (01:55)
[2017-06-19 01:57] LABS: ALBUMIN 3.3 g/dL (3.2-5.5); ALBUMIN/GLOBULIN RATIO 0.9 (1.0-2.2); BILIRUBIN,TOTAL 0.7 mg/dL (0.2-1.0); CALCIUM 8.1 mg/dL (8.5-10.3); CREATININE 1.8 mg/dL (0.6-1.2); MAGNESIUM 2.3 mg/dL (1.7-2.8); TOTAL PROTEIN 6.9 g/dL (6.7-8.2)
[2017-06-19] MEDS ORDERED: ACETAMINOPHEN 325 MG TABLET PO PRN (02:41)
[2017-06-19] MEDS ORDERED: ZOLPIDEM 5 MG TABLET PO PRN (02:41)
[2017-06-19] MEDS ORDERED: HYDROcod/ACETAM 10 MG/325 MG TABLET PO PRN (02:41)
[2017-06-19] MEDS ORDERED: ONDANSETRON 4 MG/2 ML VIAL IVP PRN (02:41)
[2017-06-19] MEDS ORDERED: UREA TOP PRN (02:45)
[2017-06-19] MEDS ORDERED: SODIUM CHLORIDE 0.9% 500 ML IV ONE (02:47)
[2017-06-19] MEDS ORDERED: guaiFENesin/DEXTROMETHORPHAN 10 ML UDC PO PRN (02:51)
[2017-06-19] MEDS ORDERED: methylPREDNISolone SUCCINATE 40 MG/ML VIAL IVP SCH (03:00)
[2017-06-19] MEDS ORDERED: PIPERACILLIN/TAZOBACTAM 3.375 GM in SODIUM CHLORIDE 0.9% MINIBAG 100 ML IV SCH (03:00)
[2017-06-19 03:20] LABS: HB2 TOTAL 12.9 g/dL; HEMOGLOBIN A1C 0.54 g/dL
[2017-06-19] MEDS: IPRATROPIUM/ALBUTEROL 3 ML NEB INH SCH ×4 (03:46→17:59)
[2017-06-19] MEDS: SACCHAROMYCES BOULARDII 250 MG CAPSULE PO SCH ×3 (04:41→17:20)
[2017-06-19] MEDS: guaiFENesin 600 MG TABLET PO SCH ×2 (04:42→08:35)
[2017-06-19] MEDS: methylPREDNISolone SUCCINATE 40 MG/ML VIAL IVP SCH ×3 (06:35→21:22)
[2017-06-19] MEDS: PIPERACILLIN/TAZOBACTAM 3.375 GM in SODIUM CHLORIDE 0.9% MINIBAG 100 ML IV SCH ×3 (06:35→21:23)
[2017-06-19] MEDS: PANTOPRAZOLE 40 MG TABLET PO SCH (06:42)
--- NOTE | 2017-06-19 07:46 | HISTORY & PHYSICAL EXAMINATION ---
DATE OF SERVICE: 06/19/2017 Physician: Ruth Bear MD CHIEF COMPLAINT: Shortness of breath. HISTORY OF PRESENT ILLNESS: The patient is a 71-year-old, chronically ill white male who was brought in to [facility] ER from [facility] with respiratory distress. Patient on admission reported that he developed shortness of breath just prior to admission, perhaps of 1 day duration. He does not remember being short of breath before. During the past 24 hours, he had productive cough and his shortness of breath was progressively worsening. Other than that, he denied all complaints. In particular, he did not report chest pain. Denied nausea, vomiting, diarrhea or abdominal pain. He is a heavy smoker, still smokes at the nursing facility. He does not use oxygen at home, although he was recommended to use CPAP in the past, he does not use CPAP either. Notably, the patient does have cardiac history. He has history of left bundle branch block. Has history of congestive heart failure; however, last time he was hospitalized in February 2017 he had an echocardiogram which was normal. He has paroxysmal atrial fibrillation and takes amiodarone and Coreg. He is on diuretics, lisinopril and torsemide. Upon presentation to the ER, the patient was hypotensive, hypoxic and febrile. His heart rate was in the 70s, blood pressure was between 80/50 and 100/60, oxygen saturation was 80% on room air, increased to mid 90s on 4 liters nasal cannula, temperature was 38.1 Celsius, respiratory rate was between 24 and 27. The ER workup included an EKG, which showed left bundle branch block. Troponin was negative. Chest x-ray showed questionable pulmonary vascular congestion, atelectasis versus bibasilar infiltrate. On my review, it did look like central congestion with increased diameter of the central veins. Atelectasis looked more likely than pneumonia, looking at the bibasilar infiltrates. Regarding laboratories, creatinine was 1.8, BUN 34. Notably, the patient has chronic renal insufficiency with creatinine baseline between 1.3 and 1.6. White blood cell count was 11.3, hemoglobin 11.8, platelet count was normal. BNP was 118. Liver function tests were unremarkable. Lactic acid was normal at 0.8. On exam, the patient was wheezing; therefore, at the ER, he received small volume nebulizers and Solu-Medrol. He also received 1 liter IV fluid bolus. He was given one dose of ceftriaxone. When I examined him, he was mentating well, was warm and well perfused, appeared dehydrated but did not show poor peripheral perfusion, indicating low perfusion/ hypotension. PAST MEDICAL HISTORY 1. COPD, still smokes. No history of oxygen dependence. 2. Obstructive sleep apnea, was on CPAP in the past, not recently. 3. Hypertension. 4. Insulin-dependent diabetes. 5. Paroxysmal atrial fibrillation, on Coreg and amiodarone for rate control. On daily aspirin, not on anticoagulant. 6. Chronic kidney disease with creatinine baseline between 1.3 and 1.6. 7. Depression. 8. Coronary artery disease. 9. History of congestive heart failure. In the past had ejection fraction of 45%; however, most recent echocardiogram in February 2017 was normal, showed normal ejection fraction. 10. History of cirrhosis. 11. History of cerebrovascular accident, no significant residual deficit. 12. Left bundle branch block. OUTPATIENT MEDICATIONS: Medication list is not yet updated. In the past, the patient was on: 1. Torsemide. 2. Lisinopril. 3. Insulin. 4. Advair. 5. Aspirin. 6. Amiodarone. 7. Spiriva. 8. Zoloft. 9. Seroquel. 10. Coreg. SOCIAL HISTORY: The patient smokes about a pack of cigarettes per day. In the past he used to smoke 2 packs. He comes from [facility]. PRIMARY CARE PHYSICIAN: Camilla Tom MD. FAMILY HISTORY: Reviewed, noncontributory. CODE STATUS: FULL CODE, POLST form was scanned online on March 01, 2017, listing CPR and full interventions. REVIEW OF SYSTEMS: Please see pertinent positives listed above in history of present illness. The patient did not report additional complaints on the 12-point review. PHYSICAL EXAMINATION VITAL SIGNS: See listed above in history of current illness. GENERAL: The patient is a well-developed, chronically ill-appearing male, who had increased work of breathing. RESPIRATORY: Increased work of breathing with respiratory rate in the mid 20s, requiring supplemental oxygen. Decreased air entry above all lung delgado with expiratory wheezes. No crackling. CARDIOVASCULAR: S1, S2. Regular. I could not hear pathologic murmur in the setting of upper airway transmitted airway sounds. ABDOMEN: Distended, obese. Nontender. Bowel tones present. LYMPH: Signs of chronic venous stasis of the lower extremities with hemosiderosis, no edema. HEENT: Oral mucosa dry. No oral thrush. SKIN: With mild pallor, no jaundice. NEUROLOGIC: Alert, oriented, neurologically nonfocal. PSYCHIATRIC: Cooperative. ASSESSMENT AND PLAN/ACTIVE ISSUES/DIAGNOSES 1. Hypoxic respiratory failure requiring supplemental oxygen: No history of oxygen dependence, but the patient does have history of chronic obstructive pulmonary disease. 2. Hypotension, multifactorial: a) Could be secondary to sepsis, although lactic acid was normal and the patient was not tachycardic. b) Medication side effect on Lisinopril, torsemide plus psychoactive medications including Seroquel and Zoloft. 3. Infectious issues include possible early pneumonia versus bronchitis. Fever could also be related to atelectasis and/or aspiration. On my review, the chest x-ray was more consistent with central pulmonary congestion and bibasilar atelectasis. I could not see a discrete infiltrate/consolidation; however, the patient did have sputum production, white blood cell count was slightly elevated and he does appear to have acute bronchitis. 4. Renal failure/acute on chronic. Creatinine is above baseline. Clinically, the patient appears with hypovolemic volume status/dehydration, likely over diuresed. Notably, this patient takes torsemide daily, which might not be necessary given that he has normal ejection fraction. If he would be on diuretics, given his history of cirrhosis, obstructive sleep apnea and cardiac history with normal ejection fraction, he would likely benefit from diuretic use every 2-3 days, rather than daily. 5. Insulin-dependent diabetes. Blood glucose on admission was 111. 6. Paroxysmal atrial fibrillation, on amiodarone and Coreg for rate control. On admission, the patient was in sinus rhythm. EKG showed left bundle branch block, which is unchanged compared to previous. As the patient has chronic lung disease, I am not sure he would need amiodarone long-term. Additional issue would be anticoagulation. The patient does have history of stroke. For now, he is not on anticoagulation and he takes only aspirin. 7. Cigarette smoking/cessation recommended. 8. Chronic anemia. No bleeding history, blood counts stable. PLANS AND ORDERS 1. The patient is getting admitted as inpatient. He had borderline low blood pressure and received 1 liter fluid bolus in the ER. He was not tachycardic, was mentating well and appeared warm and well perfused; therefore, I think the hypotension is multifactorial rather than just related to sepsis, therefore, I admitted him to medical floor and I do not think he needs ICU admission. 2. Continue treatment for respiratory infection/bronchitis. I ordered Zosyn given that the patient was admitted within the past 6 months and he is coming from a nursing facility. In addition, aspiration could be contributing to his presentation. 3. Regarding cardiac medications, I will continue amiodarone, noting that for long-term that might not be the best choice to continue. Regarding Coreg, the patient had low blood pressure, therefore, the Coreg is on hold. This would be the next to continue if the blood pressure increases to avoid AFib and tachycardia. 4. Hold diuretics. 5. Judicious fluid, 1 liter was already given. Will give another 500 mL and will follow the clinical course. 6. Regarding COPD with exacerbation. Will continue using IV steroids, small volume nebulizers, supportive care. 7. Gastrointestinal prophylaxis/proton pump inhibitor. 8. Bowel prophylaxis/Florastor. 9. Speech therapy/swallow evaluation. 10. Regarding diabetes, will continue long-acting insulin and monitor blood glucose on sliding scale. 11. CODE STATUS: FULL CODE. 12. Deep venous thrombosis prophylaxis with decreased dose of subcutaneous heparin considering renal failure. ATTESTATION: I certify that the reasonable expectation for this patient is to remain hospitalized for more than 48 hrs, however to get discharged or transferred to another facility within 96 hrs. Time spent in the care of this patient was 60 minutes. TD: 06/19/2017 05:04 KERRY
[2017-06-19] MEDS: BUDESONIDE 0.5 MG/2 ML NEB INH SCH ×2 (08:04→18:01)
[2017-06-19] MEDS: FORMOTEROL FUMARATE NEB 20 MCG/2 ML INH SCH ×2 (08:04→18:02)
[2017-06-19] MEDS: INSULIN GLARGINE 300 UNIT/3 ML PEN SUBQ SCH ×2 (08:30→21:17)
[2017-06-19] MEDS: HEPARIN 5,000 UNIT/ML VIAL SUBQ SCH ×2 (08:34→21:20)
[2017-06-19] MEDS: INSULIN ASPART 300 UNIT/3 ML PEN SUBQ SCH ×4 (08:34→21:16)
[2017-06-19] MEDS: ASPIRIN CHEW 81 MG TABLET PO SCH (08:35)
[2017-06-19] MEDS: AMIODARONE 200 MG TABLET PO SCH (08:35)
[2017-06-19] MEDS: POLYETHYLENE GLYCOL 3350 17 GM PACKET PO SCH (08:35)
[2017-06-19] MEDS ORDERED: NON FORMULARY MED (Fluticasone/Salmeterol [Advair 250-50 Diskus] 1 PUFFS) INH SCH (09:00)
[2017-06-19] MEDS: SODIUM CHLORIDE FLUSH 0.9% 10 ML SYRINGE IVP SCH ×2 (10:16→17:21)
[2017-06-19] MEDS: SODIUM CHLORIDE FLUSH 0.9% 10 ML SYRINGE IVP PRN ×2 (14:22→21:20)
[2017-06-20] MEDS: SODIUM CHLORIDE FLUSH 0.9% 10 ML SYRINGE IVP SCH ×2 (01:37→08:29)
[2017-06-20] MEDS: PIPERACILLIN/TAZOBACTAM 3.375 GM in SODIUM CHLORIDE 0.9% MINIBAG 100 ML IV SCH (06:10)
[2017-06-20] MEDS: methylPREDNISolone SUCCINATE 40 MG/ML VIAL IVP SCH (06:10)
[2017-06-20] MEDS: SODIUM CHLORIDE FLUSH 0.9% 10 ML SYRINGE IVP PRN (06:11)
[2017-06-20] MEDS: PANTOPRAZOLE 40 MG TABLET PO SCH (06:11)
[2017-06-20 06:24] LABS: CALCIUM 8.6 mg/dL (8.5-10.3); CREATININE 1.3 mg/dL (0.6-1.2)
[2017-06-20] MEDS: IPRATROPIUM/ALBUTEROL 3 ML NEB INH SCH (07:58)
[2017-06-20] MEDS: FORMOTEROL FUMARATE NEB 20 MCG/2 ML INH SCH (07:58)
[2017-06-20] MEDS: BUDESONIDE 0.5 MG/2 ML NEB INH SCH (07:58)
[2017-06-20] MEDS ORDERED: INSULIN ASPART 300 UNIT/3 ML PEN SUBQ SCH (08:00)
[2017-06-20] MEDS: POLYETHYLENE GLYCOL 3350 17 GM PACKET PO SCH (08:21)
[2017-06-20] MEDS: INSULIN GLARGINE 300 UNIT/3 ML PEN SUBQ SCH (08:23)
[2017-06-20] MEDS: HEPARIN 5,000 UNIT/ML VIAL SUBQ SCH (08:23)
[2017-06-20] MEDS: guaiFENesin 600 MG TABLET PO SCH (08:28)
[2017-06-20] MEDS: AMIODARONE 200 MG TABLET PO SCH (08:28)
[2017-06-20] MEDS: SACCHAROMYCES BOULARDII 250 MG CAPSULE PO SCH (08:29)
[2017-06-20] MEDS: ASPIRIN CHEW 81 MG TABLET PO SCH (08:29)
[2017-06-20 08:33] VITALS: BP 97/52
--- NOTE | 2017-06-20 10:56 | Discharge Plan ---
Discharge Plan Disposition: Against Medical Advice Condition: Fair Prescriptions: Albuterol Sulfate [Proair Hfa Inhaler] 1 - 2 puffs INH Q4H PRN #1 inhaler PRN Reason: Shortness Of Air/Wheezing guaiFENesin [Mucinex] 600 mg PO DAILY #7 tablet Levofloxacin [Levaquin] 750 mg PO DAILY #6 tablet Diet: Regular Activity Restrictions: Activity as Tolerated Additional Instructions or Follow Up instructions: You were admitted because you had an emphysema exacerbation causing cough, wheezing. We found you to be ill with pneumonia. While you have improved with antibiotics, nebulizers, and steroids, you are still sick. But you really do not want to stay. You want to smoke. Although we have offered you a nicotine patch you really just want a cigarette. As such you are leaving AGAINST MEDICAL ADVICE. Please make sure you finish the antibiotics we have prescribed. Please see Dr. Tom in the next 1-2 weeks. No Smoking: If you smoke, Please STOP! Call for help. Follow-up with: Camilla Tom MD [Primary Care Provider] -
--- NOTE | 2017-06-21 07:29 | DISCHARGE SUMMARY ---
Physician: Jasmyn Patel MD DATE OF ADMISSION: 06/19/2017 DATE OF DISCHARGE: 06/20/2017 PRIMARY CARE PROVIDER: Camilla Tom MD DISCHARGE DIAGNOSES: 1. Acute respiratory failure with hypoxia and hypercapnia. 2. Chronic obstructive pulmonary disease with acute lower respiratory infection. 3. Hypotension. 4. Gvnsc-wf-emjxhoy kidney failure. 5. Type 2 diabetes mellitus with diabetic chronic disease on long-term use of insulin. 6. Obstructive sleep apnea. 7. Paroxysmal atrial fibrillation. 8. Tobacco abuse. 9. Oral phase dysphagia PRINCIPAL PROCEDURES: 1. Chest x-ray with borderline heart size and pulmonary vascular congestion. Elevated right diaphragm with bibasilar atelectasis or infiltrate. 2. Blood cultures negative after 24 hours. 3. Rehab, speech therapy, clinical swallow evaluation showing oral dysphagia due to dentition. He has upper plate in place. No lower dentures. Lower dentures are at home, but he does not use it because it is too loose and he cannot chew on it. Would recommend dysphagia mechanically altered diet with thin liquids and that he sit upright for eating and drinking. DISCHARGE MEDICATIONS: 1. ProAir inhaler 2 puffs every 4 hours as needed, new prescription. 2. Levaquin 750 mg p.o. daily #6, new prescription. 2. Mucinex 600 mg p.o. daily #7, new prescription. 3. Amiodarone 200 mg daily. 4. Aspirin 81 mg daily. 5. Carvedilol 6.25 mg b.i.d. 6. Ferrous sulfate 325 mg daily. 7. Advair 250/50 Diskus 1 puff b.i.d. 8. Lantus 30 units subcu b.i.d. 9. Lisinopril 2.5 mg a day. 10 Seroquel 50 mg a day. 11. Zoloft 100 mg a day. 12. Spiriva 1 capsule via inhalation daily. 13. Torsemide 80 mg p.o. b.i.d. 14. Urea topical lotion 1 application topically daily to affected area. HOSPITAL COURSE: He is a 71-year-old white male who lives at [facility], [facility]. He has a history of a left bundle branch block, congestive heart failure, paroxysmal atrial fibrillation, and is a current tobacco abuser with COPD. He developed shortness of breath just prior to admission, possibly 1 day duration. He has had increasing cough, increasing shortness of breath. He denied vomiting, diarrhea, abdominal pain. He is supposed to be using a CPAP mask for obstructive sleep apnea and has not been doing it. In the emergency room, he was hypotensive, hypoxic, and febrile. Heart rate was in the 70s, blood pressure between 80/50 and 100/60. He was 80% on room air. His O2 saturations improved to the mid 90s on 4 liters nasal cannula. In the emergency room, EKG showed left bundle branch block, troponin negative. His chest x-ray showed atelectasis versus bibasilar infiltrate. While it does look like central congestion with increased diameter of the central veins, there is also most likely atelectasis with early pneumonia because of his fever. HOSPITAL COURSE: The patient was admitted as a disease exacerbation with acute bronchitis and possible pneumonia. His respiratory failure quickly turned around. By the time he was transferred to the med/surg unit from the ER, he was already wanting to leave [place]. His ostensible reason for leaving AM was that he wanted to smoke and he could not inside the hospital. Blood cultures were negative at 24 hours. MRSA nares was negative. He was treated with empiric Zosyn because he lives in a intermediate facility. While he had the fever, tachycardia, and hypertension on admission that met SIRS criteria with organ involvement and thereby sepsis, he rebounded quite quickly over the next few hours. Blood pressure is 91/46 on admission and had gone up as high as 110/59, but was back down to 97/52 at discharge. Because he has a history of congestive heart failure, vague in description, we did not want to aggressively over hydrate him. During his stay, his sugars did climb with his Solu-Medrol. On admission, they were 181. His highest was 283 and by discharge he was 170. He did not require a sleep mask for sleeping. His paroxysmal atrial fibrillation was not present during his stay and heart rate was stable. Because he was complaining of dysphagia and unable to chew, he underwent a swallow evaluation with physical therapy and the results are as above. The patient responded quite nicely to therapy, but still had rhonchi and wheezing at discharge. He decided that he really, really wanted to smoke, and since it was not allowed in the hospital he was going to leave A. A patch was offered to the patient. He still declined. On admission, his creatinine had risen to 1.8 and was down to 1.3 at discharge. The patient eventually left AMA. He was willing to take medications in the outpatient setting at my request. 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 Because he lives at [facility], a cab was obtained for him to get there. I have asked him to please make sure he follows up with Dr. Tom in the next week. I also clarified with him about his wishes. I was curious if he meant he was seeking only comfort palliative care. Is that why he did not want to be in the hospital? After thinking about it, he says "No." That he really did want to be treated in the hospital if the time came and he needed it. He just wants to leave right now because he does not think he needs to be here. He also admits he wants to do this in order to get a cigarette to smoke. He does want to be resuscitated in the future and treated in the hospital. cc: Camilla Tom M.D. TD: 06/20/2017 15:44 MTDDonnell
== END 2017-06-20 12:13 | disposition left against medical advice (07) | DRG 871 ==
LOC: EDUNIT# → ED 01:09 → SUPCPDRO 01:09 → ICU 02:41 → MS3 06-20 11:05
PROVIDERS: ADMIT Internal Medicine; ATTEND Specialist
DX: J44.0 Chronic obstructive pulmonary disease with (acute) lower respiratory infection (principal); J18.9 Pneumonia, unspecified organism; R09.02 Hypoxemia; A41.9 Sepsis, unspecified organism; J96.01 Acute respiratory failure with hypoxia; G47.30 Sleep apnea, unspecified; I11.0 Hypertensive heart disease with heart failure; I50.9 Heart failure, unspecified; E11.9 Type 2 diabetes mellitus without complications; F17.200 Nicotine dependence, unspecified, uncomplicated; I48.91 Unspecified atrial fibrillation; J96.02 Acute respiratory failure with hypercapnia; N17.9 Acute kidney failure, unspecified; J20.9 Acute bronchitis, unspecified; R65.20 Severe sepsis without septic shock; J43.9 Emphysema, unspecified; I95.9 Hypotension, unspecified; E11.22 Type 2 diabetes mellitus with diabetic chronic kidney disease; N18.9 Chronic kidney disease, unspecified; I10 Essential (primary) hypertension; G47.33 Obstructive sleep apnea (adult) (pediatric); I48.0 Paroxysmal atrial fibrillation; R13.11 Dysphagia, oral phase; I44.7 Left bundle-branch block, unspecified; F32.9 Major depressive disorder, single episode, unspecified; I25.10 Atherosclerotic heart disease of native coronary artery without angina pectoris; E86.1 Hypovolemia; E86.0 Dehydration; K74.60 Unspecified cirrhosis of liver; D64.9 Anemia, unspecified; Z72.0 Tobacco use; Z53.29 Procedure and treatment not carried out because of patient's decision for other reasons; Z79.4 Long term (current) use of insulin; Z91.19 Patient's noncompliance with other medical treatment and regimen; Z86.79 Personal history of other diseases of the circulatory system; Z79.899 Other long term (current) drug therapy; Z79.82 Long term (current) use of aspirin; Z86.73 Personal history of transient ischemic attack (TIA), and cerebral infarction without residual deficits
CPT/HCPCS: 36415; 71045; 80048; 80053; 83036; 83605; 83690; 83735; 83880; 84100; 84484; 85025; 87040; 87150; 93005; 94640; 96361; 96365; 96375; 99284; 99285

== ENCOUNTER 2017-06-26 08:00 | Outpatient (CLI) | payer MEDICARE, MEDICAID ==
[2017-06-26 13:30] LABS: BASOPHILS # (AUTO) 0.1 10^3/uL (0.0-0.1); BASOPHILS % (AUTO) 0.6 %; EOSINOPHILS # (AUTO) 0.2 10^3/uL (0.0-0.7); EOSINOPHILS % (AUTO) 1.8 %; LYMPHOCYTES # (AUTO) 1.4 10^3/uL (1.5-3.5); LYMPHOCYTES % (AUTO) 12.4 %; MEAN CORPUSCULAR HEMOGLOBIN 31.5 pg (27.0-31.0); MEAN CORPUSCULAR HGB CONC 33.6 g/dL (32.0-36.0); MEAN PLATELET VOLUME 7.7 fL (7.4-11.4); MONOCYTES # (AUTO) 0.9 10^3/uL (0.0-1.0); MONOCYTES % (AUTO) 8.3 %; NEUTROPHILS # (AUTO) 8.8 10^3/uL (1.5-6.6); NEUTROPHILS % (AUTO) 76.9 %; PLT - PLATELET COUNT 225 10^3/uL (130-450); RED BLOOD COUNT 3.82 10^6/uL (4.70-6.10); RED CELL DISTRIBUTION WIDTH 13.5 % (12.0-15.0); WHITE BLOOD COUNT 11.4 x10^3/uL (4.8-10.8)
[2017-06-26 13:56] LABS: HB2 TOTAL 13.2 g/dL; HEMOGLOBIN A1C 0.6 g/dL; HEMOGLOBIN A1C % 6.3 % (4.6-6.2)
[2017-06-26 13:57] LABS: PSA SCREEN (Z12.5) 1.3 ng/mL (0.000-2.000)
[2017-06-26 14:02] LABS: FREE T4 (FREE THYROXINE) 1.55 ng/dL (0.58-1.64)
[2017-06-26 14:04] LABS: FREE T3 2.6 pg/mL (2.5-3.9); MICROALBUM/CREATININE RATIO,UR 87.5 ug/mg (<30.0); MICROALBUMIN,URINE 2.8 mg/dL (0-300.0)
[2017-06-26 14:05] LABS: FERRITIN 458.6 ng/mL (23.9-336.2)
[2017-06-26 14:11] LABS: GLUCOSE 55 mg/dL (70-100)
[2017-06-26 14:40] LABS: % IRON SATURATION 15 % (20-50); ALBUMIN/GLOBULIN RATIO 0.8 (1.0-2.2); ALKALINE PHOSPHATASE 62 IU/L (42-121); ALT ALANINE AMINOTRANSFERASE 15 IU/L (10-60); AST ASPARTATE AMINOTRANSFERASE 14 IU/L (10-42); BILIRUBIN,TOTAL 1.3 mg/dL (0.2-1.0); BUN - BLOOD UREA NITROGEN 27 mg/dL (6-20); CALCIUM 8.2 mg/dL (8.5-10.3); CARBON DIOXIDE - CO2 31 mmol/L (21-32); CHLORIDE 100 mmol/L (101-111); CHOL/HDL RATIO 4.8 (<5.0); CHOLESTEROL 149 mg/dL; CREATININE 1.8 mg/dL (0.6-1.2); GFR - MDRD 37 (>89); HDL CHOLESTEROL 31 mg/dL; IRON 31 ug/dL (45-182); LDL CHOLESTEROL,CALCULATED 95 mg/dL; LDL/HDL RATIO 3.1 (<3.6); SODIUM 139 mmol/L (135-145); TOTAL IRON BINDING CAPACITY 207 ug/dL (250-450); TOTAL PROTEIN 6.9 g/dL (6.7-8.2); TRANSFERRIN 148 mg/dL (180-329); VLDL CHOLESTEROL 23 mg/dL
== END 2017-06-26 08:01 ==
LOC: LAB.N 08:00
PROVIDERS: ATTEND Internal Medicine
DX: Z12.5 Encounter for screening for malignant neoplasm of prostate (principal); Z79.899 Other long term (current) drug therapy; R74.8 Abnormal levels of other serum enzymes; Z13.6 Encounter for screening for cardiovascular disorders; K74.60 Unspecified cirrhosis of liver; Q80.9 Congenital ichthyosis, unspecified; E78.5 Hyperlipidemia, unspecified; I12.9 Hypertensive chronic kidney disease with stage 1 through stage 4 chronic kidney disease, or unspecified chronic kidney disease; N18.9 Chronic kidney disease, unspecified; I34.0 Nonrheumatic mitral (valve) insufficiency; G47.33 Obstructive sleep apnea (adult) (pediatric); D64.9 Anemia, unspecified; J44.9 Chronic obstructive pulmonary disease, unspecified
CPT/HCPCS: 36415; 80053; 80061; 82043; 82570; 82728; 83036; 83540; 84439; 84466; 84481; 85025; G0103; 83721; 84153

== ENCOUNTER 2017-07-06 08:00 | Outpatient (CLI) | payer MEDICARE, MEDICAID ==
[2017-07-06 13:15] LABS: CALCIUM 8.3 mg/dL (8.5-10.3); CREATININE 1.8 mg/dL (0.6-1.2)
== END 2017-07-06 08:01 | disposition home or self-care (01) ==
LOC: LAB.N 08:00
PROVIDERS: ATTEND Internal Medicine
DX: J18.9 Pneumonia, unspecified organism (principal); J96.90 Respiratory failure, unspecified, unspecified whether with hypoxia or hypercapnia; J44.1 Chronic obstructive pulmonary disease with (acute) exacerbation
CPT/HCPCS: 36415; 80048

== ENCOUNTER → 2017-12-15 | Outpatient (CLI) | payer MEDICARE, MEDICAID ==
[2017-12-15 12:24] LABS: CALCIUM 8.2 mg/dL (8.5-10.3); CREATININE 1.9 mg/dL (0.6-1.2)
[2017-12-15 12:53] LABS: HB2 TOTAL 13.9 g/dL; HEMOGLOBIN A1C 0.8 g/dL; HEMOGLOBIN A1C % 7.4 % (4.6-6.2)
== END ==
LOC: LAB.N 08:00
PROVIDERS: ATTEND Internal Medicine
DX: E11.22 Type 2 diabetes mellitus with diabetic chronic kidney disease (principal); N18.9 Chronic kidney disease, unspecified
CPT/HCPCS: 36415; 80048; 83036

== ENCOUNTER 2018-06-29 15:14 | Outpatient (CLI) | payer MEDICARE, MEDICAID ==
--- NOTE | 2018-06-30 21:47 | XRAY Report ---
Reason: HYPOXIA,WHEEZING Procedure Date: 06/29/2018 Accession Number: [id number] / [id number] Procedure: XRN - Chest 2 View X-Ray CPT Code: 66268 FULL RESULT: EXAM: CHEST RADIOGRAPHY EXAM DATE: 06/29/2018 03:32 PM. CLINICAL HISTORY: HYPOXIA,WHEEZING. COMPARISON: CHEST 1 VIEW 06/19/2017 1:26 AM. TECHNIQUE: 2 views. FINDINGS: Lungs/Pleura: Chronic atelectasis/scarring at the right base adjacent to a mildly elevated right hemidiaphragm, similar to the prior. Pulmonary vascular congestion is stable. No large effusion or pneumothorax. Mediastinum: Heart and mediastinal contours are unremarkable. Other: None. IMPRESSION: No acute radiographic pulmonary abnormalities. Elevated right hemidiaphragm and draining atelectasis/scarring. [facility]
== END 2018-06-29 15:15 | disposition home or self-care (01) ==
LOC: DI.N 15:14
PROVIDERS: ATTEND Internal Medicine
DX: J98.6 Disorders of diaphragm (principal)
CPT/HCPCS: 71046

== ENCOUNTER 2018-12-17 15:41 | Outpatient (CLI) | payer MEDICARE, MEDICAID ==
[2018-12-17 16:14] LABS: BASOPHILS # (AUTO) 0.1 10^3/uL (0.0-0.1); EOSINOPHILS # (AUTO) 0.3 10^3/uL (0.0-0.7); EOSINOPHILS % (AUTO) 3.3 %; HGB - HEMOGLOBIN 13.3 g/dL (14.0-18.0); LYMPHOCYTES # (AUTO) 1.9 10^3/uL (1.5-3.5); LYMPHOCYTES % (AUTO) 21.1 %; MEAN CORPUSCULAR HEMOGLOBIN 31.8 pg (27.0-31.0); MEAN CORPUSCULAR HGB CONC 31.6 g/dL (32.0-36.0); MEAN CORPUSCULAR VOLUME 100.7 fL (80.0-94.0); MEAN PLATELET VOLUME 8.9 fL (7.4-11.4); MONOCYTES # (AUTO) 0.7 10^3/uL (0.0-1.0); MONOCYTES % (AUTO) 7.4 %; NEUTROPHILS % (AUTO) 66.8 %; PLT - PLATELET COUNT 215 10^3/uL (130-450); RED BLOOD COUNT 4.18 10^6/uL (4.70-6.10); RED CELL DISTRIBUTION WIDTH 13.2 % (12.0-15.0)
[2018-12-17 16:28] LABS: ALBUMIN 3.7 g/dL (3.2-5.5); BILIRUBIN,TOTAL 0.7 mg/dL (0.2-1.0); CALCIUM 8.5 mg/dL (8.5-10.3); TOTAL PROTEIN 7.4 g/dL (6.7-8.2)
[2018-12-17 16:47] LABS: HB2 TOTAL 13.6 g/dL; HEMOGLOBIN A1C 0.81 g/dL; HEMOGLOBIN A1C % 7.6 % (4.6-6.2)
[2018-12-17 17:12] LABS: THYROID STIMULATING HORMONE 0.26 uIU/mL (0.34-5.60)
== END 2018-12-17 15:42 | disposition home or self-care (01) ==
LOC: LAB 15:41
PROVIDERS: ATTEND Internal Medicine
DX: J44.9 Chronic obstructive pulmonary disease, unspecified (principal); R53.83 Other fatigue; R74.8 Abnormal levels of other serum enzymes; E11.9 Type 2 diabetes mellitus without complications
CPT/HCPCS: 36415; 80053; 82607; 83036; 84443; 85025

== ENCOUNTER 2018-12-28 08:00 | Outpatient (CLI) | payer MEDICARE, MEDICAID | END 2018-12-28 23:59 | disposition home or self-care (01) | LOC: LAB.N 08:00 | PROVIDERS: ATTEND Internal Medicine | DX: E05.90 Thyrotoxicosis, unspecified without thyrotoxic crisis or storm (principal) | CPT/HCPCS: 36415; 84439 ==

== ENCOUNTER 2019-02-01 15:24 | Outpatient (CLI) | payer MEDICARE, MEDICAID | END 2019-02-01 15:25 | disposition critical access hospital (66) | LOC: EMS 15:24 | PROVIDERS: ATTEND Surgery | DX: R06.00 Dyspnea, unspecified (principal) | CPT/HCPCS: A0425; A0427 ==

== ENCOUNTER 2019-02-01 15:38 | Inpatient (IN) | payer MEDICARE, MEDICAID ==
[2019-02-01] MEDS ORDERED: methylPREDNISolone SUCCINATE 125 MG/2 ML VIAL IVP STA (15:55)
[2019-02-01] MEDS ORDERED: ALBUTEROL NEB 2.5 MG/3 ML INH STA (15:55)
[2019-02-01 16:02] LABS: BASOPHILS # (AUTO) 0.1 10^3/uL (0.0-0.1); BASOPHILS % (AUTO) 0.6 %; EOSINOPHILS # (AUTO) 0.2 10^3/uL (0.0-0.7); EOSINOPHILS % (AUTO) 1.6 %; HGB - HEMOGLOBIN 12.4 g/dL (14.0-18.0); LYMPHOCYTES # (AUTO) 1.3 10^3/uL (1.5-3.5); LYMPHOCYTES % (AUTO) 12.5 %; MEAN CORPUSCULAR HEMOGLOBIN 30.9 pg (27.0-31.0); MEAN CORPUSCULAR HGB CONC 31.2 g/dL (32.0-36.0); MEAN CORPUSCULAR VOLUME 99.3 fL (80.0-94.0); MEAN PLATELET VOLUME 8.7 fL (7.4-11.4); MONOCYTES # (AUTO) 0.6 10^3/uL (0.0-1.0); MONOCYTES % (AUTO) 5.7 %; NEUTROPHILS # (AUTO) 8.4 10^3/uL (1.5-6.6); PLT - PLATELET COUNT 261 10^3/uL (130-450); RED BLOOD COUNT 4.01 10^6/uL (4.70-6.10); RED CELL DISTRIBUTION WIDTH 12.8 % (12.0-15.0); WHITE BLOOD COUNT 10.6 x10^3/uL (4.8-10.8)
--- NOTE | 2019-02-01 16:06 | ED Physician Documentation ---
History of Present Illness - Stated complaint Stated Complaint: RESP. DISTRESS - History obtained from History obtained from: Patient, EMS - History of Present Illness Timing: Today Pain level max: 0 Pain level now: 0 - Additonal information Additional information: 73-year-old male with a history of CHF, CAD, COPD presents to the emergency department difficulty breathing today. He states that this started today. Used his nebulizer at home without relief. Called 911 and brought in by EMS. He was given 1 DuoNeb en route. No steroids given. He does not take steroids at home. No fevers. No cough. Has been admitted to the ICU in the past on BiPAP for this. No chest pain. Review of Systems Ten Systems: 10 systems reviewed and negative Constitutional: denies: Fever Ears: denies: Ear pain Nose: denies: Rhinorrhea / runny nose, Congestion Cardiac: denies: Chest pain / pressure Respiratory: reports: Dyspnea, Wheezing. denies: Cough GI: denies: Nausea, Vomiting, Diarrhea Skin: denies: Rash Musculoskeletal: denies: Neck pain, Back pain Neurologic: denies: Headache PD PAST MEDICAL HISTORY - Past Medical History Cardiovascular: Congestive heart failure, Hypertension, Coronary artery disease Respiratory: COPD, Pneumonia, Shortness of breath, Sleep apnea, CPAP use, Other Neuro: None Endocrine/Autoimmune: Type 2 diabetes GI: GERD, Cirrhosis Psych: Depression - Past Surgical History Past Surgical History: Yes - Present Medications Home Medications: Ambulatory Orders Medication Instructions Recorded Confirmed Amiodarone HCl 200 mg PO DAILY 02/28/17 06/19/17 Aspirin 81 mg PO DAILY 02/28/17 06/19/17 Carvedilol [Coreg] 6.25 mg PO BID 02/28/17 06/19/17 Ferrous Sulfate 325 mg PO DAILY 02/28/17 06/19/17 Fluticasone/Salmeterol [Advair 1 puffs INH BID 02/28/17 06/19/17 250-50 Diskus] Insulin Glargine [Lantus Solostar] 30 units SUBQ BID 02/28/17 06/19/17 Lisinopril [Zestril] 2.5 mg PO DAILY 02/28/17 06/19/17 QUEtiapine [SEROquel] 50 mg PO QPM 02/28/17 06/19/17 Sertraline HCl [Zoloft] 100 mg PO QPM 02/28/17 06/19/17 Tiotropium [place] [Spiriva] 1 cap INH DAILY 02/28/17 06/19/17 Torsemide [Demadex] 20 mg PO BID 02/28/17 06/19/17 Urea 1 applic TOP DAILY PRN 02/28/17 06/19/17 Albuterol Sulfate [Proair Hfa 1 - 2 puffs INH Q4H PRN #1 inhaler 06/20/17 Inhaler] guaiFENesin [Mucinex] 600 mg PO DAILY #7 tablet 06/20/17 - Allergies Allergies/Adverse Reactions: Allergies Allergy/AdvReac Type Severity Reaction Status Date / Time No Known Drug Allergies Allergy Verified 06/19/17 01:14 - Social History Does the pt smoke?: Yes Smoking Status: Current every day smoker Does the pt drink ETOH?: No Does the pt have substance abuse?: No - POLST Patient has POLST: Yes POLST Status: Full Code PD ED PE NORMAL - Vitals Vital signs reviewed: Yes - General General: Alert and oriented X 3, Well developed/nourished, Other (mod resp distress) - HEENT HEENT: Moist mucous membranes - Neck Neck: Supple, no meningeal sign - Cardiac Cardiac: RRR, Strong equal pulses - Respiratory Respiratory: Other (Very diminished breath sounds bilaterally with minimal air move) - Abdomen Abdomen: Soft, Non tender, Non distended - Derm Derm: Warm and dry - Extremities Extremities: No calf tenderness / cord - Neuro Neuro: Alert and oriented X 3 - Psych Psych: Normal mood, Normal affect Results - Vitals Vitals: Vital Signs - 24 hr 02/01/19 02/01/19 02/01/19 15:38 16:06 16:45 Temperature 36.1 C L Heart Rate 76 73 71 Respiratory 30 H 24 22 Rate Blood Pressure 116/42 L 100/44 L O2 Saturation 97 92 02/01/19 02/01/19 16:50 17:00 Temperature Heart Rate 70 71 Respiratory 23 21 Rate Blood Pressure 112/93 H 94/50 L O2 Saturation 92 92 Oxygen O2 Source Nasal cannula - EKG (time done) 1552 Rate: Rate (enter#) (74) Rhythm: NSR [place]: Normal Intervals: Prolonged RI, LBBB Ischemia: Normal ST segments - Labs Labs: Laboratory Tests 02/01/19 02/01/19 02/01/19 15:53 15:53 15:53 WBC 10.6 RBC 4.01 L Hgb 12.4 L Hct 39.8 L MCV 99.3 H MCH 30.9 MCHC 31.2 L RDW 12.8 Plt Count 261 MPV 8.7 Neut # (Auto) 8.4 H Lymph # (Auto) 1.3 L Prentiss # (Auto) 0.6 Eos # (Auto) 0.2 Baso # (Auto) 0.1 Absolute Nucleated RBC 0.00 Nucleated RBC % 0.0 PT INR Sodium 141 Potassium 3.8 Chloride 98 L Carbon Dioxide 34 H Anion Gap 9.0 BUN 36 H Creatinine 1.7 H Estimated GFR (MDRD) 40 L Glucose 92 Calcium 8.1 L Total Bilirubin 0.6 AST 21 ALT 25 Alkaline Phosphatase 72 Troponin I High Sens 10.8 B-Natriuretic Peptide Total Protein 7.6 Albumin 3.4 Globulin 4.2 Albumin/Globulin Ratio 0.8 L Lipase 33 02/01/19 02/01/19 15:53 15:54 WBC RBC Hgb Hct MCV MCH MCHC RDW Plt Count MPV Neut # (Auto) Lymph # (Auto) Prentiss # (Auto) Eos # (Auto) Baso # (Auto) Absolute Nucleated RBC Nucleated RBC % PT 13.2 H INR 1.2 Sodium Potassium Chloride Carbon Dioxide Anion Gap BUN Creatinine Estimated GFR (MDRD) Glucose Calcium Total Bilirubin AST ALT Alkaline Phosphatase Troponin I High Sens B-Natriuretic Peptide 280 H Total Protein Albumin Globulin Albumin/Globulin Ratio Lipase - Rads (name of study) cxr Radiology: Prelim report reviewed, EMP read contemporaneously, See rad report (No acute abnormalities, noting chronic elevation of the right hemidiaphragm with overlying scarring. ) PD MEDICAL DECISION MAKING - ED course Complexity details: reviewed results, re-evaluated patient, considered differential, d/w patient ED course: Patient with what appears to be a COPD flare. He did not improve much with steroids and nebulizer treatment. Continued to tire and was placed on BiPAP. This seemed to do better for him. Has been admitted to the ICU on BiPAP during his last 2 admissions. Discussed the case with Dr. Renee, hospitalist who accepts This document was made in part using voice recognition software. While efforts are made to proofread this document, sound alike and grammatical errors may occur. - Critical Care Time(min): 45 Time Includes: Direct patient care, Review records, Reassess patient, Document care, Coordinate care, Medical consult, See progress note Data interpretation: See progress note Procedures included in critical care time: See progress note Procedures excluded from critical care time: EKG, See progress note Departure - Departure Disposition: 66 [facility] DC/Xfer Clinical Impression: Severe chronic obstructive pulmonary disease Condition: Stable Discharge Date/Time: 02/01/19 17:46
[2019-02-01 16:19] LABS: ALBUMIN 3.4 g/dL (3.2-5.5); ALBUMIN/GLOBULIN RATIO 0.8 (1.0-2.2); BILIRUBIN,TOTAL 0.6 mg/dL (0.2-1.0); CALCIUM 8.1 mg/dL (8.5-10.3); CREATININE 1.7 mg/dL (0.6-1.2); TOTAL PROTEIN 7.6 g/dL (6.7-8.2)
[2019-02-01] MEDS ORDERED: NITROGLYCERIN SL 0.4 MG TABLET SL STA (16:30)
[2019-02-01] MEDS ORDERED: FUROSEMIDE 40 MG/4 ML VIAL IVP STA (16:30)
--- NOTE | 2019-02-01 16:36 | XRAY Report ---
Reason: dyspnea Procedure Date: 02/01/2019 Accession Number: [id number] / [id number] Procedure: XR - Chest 1 View X-Ray CPT Code: 52469 Final Report FULL RESULT: EXAM: CHEST RADIOGRAPHY EXAM DATE: 02/01/2019 04:19 PM. CLINICAL HISTORY: Dyspnea for 1 week. COMPARISON: CHEST 2 VIEW 06/29/2018 3:36 PM CHEST 1 VIEW 06/19/2017 1:26 AM. TECHNIQUE: 1 view. FINDINGS: Lungs/Pleura: Chronic elevation of the right hemidiaphragm with mild overlying scarring, otherwise no focal opacities evident. No pleural effusion. No pneumothorax. Mediastinum: Within exam limitations, the cardiomediastinal contour is normal. Other: None. IMPRESSION: No acute abnormalities, noting chronic elevation of the right hemidiaphragm with overlying scarring. RADIA
[2019-02-01] MEDS ORDERED: ONDANSETRON 4 MG/2 ML VIAL IVP PRN (17:24)
[2019-02-01] MEDS ORDERED: IPRATROPIUM 0.2 MG/ML NEB INH PRN (17:24)
[2019-02-01] MEDS ORDERED: SODIUM CHLORIDE FLUSH 0.9% 10 ML SYRINGE IVP PRN (17:24)
[2019-02-01] MEDS ORDERED: ACETAMINOPHEN 325 MG TABLET PO PRN (17:32)
--- NOTE | 2019-02-01 17:52 | PHARMACY PROGRESS NOTE ---
- Best Possible Medication History Admit Date and Time: 02/01/19 6729 Processed by: Pharmacy Medication History completed: In progress (pending patient interview) Secondary Source(s): Insurance records As the person ultimately responsible for medication therapy, providers are able to order a medication from an existing home medication list in [facility] via the "Reconcile Routine" prior to Confirmation of that medication by customer support advisor. Such practice is discouraged except when the physician, in their clinical judgment, deems that a medical need exists for a medication without regard to previous use.
[2019-02-01 19:00] LABS: INR 1.2 (0.8-1.2); PT - PROTHROMBIN TIME 13.2 secs (9.9-12.6)
--- NOTE | 2019-02-01 19:39 | HISTORY & PHYSICAL EXAMINATION ---
DATE OF SERVICE: 02/01/2019 Physician: Johanne Renee MD HISTORY OF PRESENT ILLNESS: This is a 73-year-old white male with history of morbid obesity, diabetes on Insulin, CKD, COPD, continued smoking, CHF, who lives at [facility]. He also has a history of prior COPD and pneumonia admissions, sleep apnea with CPAP use, remote coronary artery disease, GERD, hepatitis B history, cirrhosis and depression. The patient presents with complaints of shortness of breath that accelerated quickly today. The [facility] staff told our ICU nurse that he has been feeling worse for several days. He used his nebulizer and he did not have relief. He takes several inhalers but no steroids. 911 was called and he was brought to the Emergency Room. He was given one DuoNeb en route and did not feel better. He was given 3 nebulizers in the ER along with steroids and was still desaturating and needed to be put on BiPAP. The patient currently is somnolent, he is wearing his BiPAP currently. Therefore, further details of the recent history are not available. PAST MEDICAL HISTORY: Obesity, diabetes, COPD, smoking, CHF, CAD, sleep apnea on CPAP, GERD, cirrhosis and depression. MEDICATIONS: 1. Amiodarone 200 mg daily. 2. Aspirin 81 mg daily. 3. Coreg 6.25 mg b.i.d. 4. Iron 325 mg daily. 5. Advair inhaler 2 puffs b.i.d. 6. Insulin 30 units subcutaneously b.i.d. 7. Lisinopril 2.5 mg daily. 8. Seroquel 50 mg every night. 9. Zoloft 100 mg every night. 10. Spiriva inhaler daily. 11. Demadex 80 mg p.o. b.i.d. 12. Topical urea lotion p.r.n. 13. ProAir inhaler every 4 hours p.r.n. 14. Guaifenesin 600 mg daily. 15. It is unclear if he is on Levaquin currently or if that was an old medication. SOCIAL HISTORY: He does not drink alcohol; he smokes up to 2 packs a day. When he was last here in admission a year ago, he had promised to decrease to 1 pack a day. There is no illicit drug use history. FAMILY HISTORY: Noncontributory. REVIEW OF SYSTEMS: A comprehensive review of systems was done by chart review and the pertinent positives are listed; the rest are negative. PHYSICAL EXAMINATION: GENERAL: Obese white male. He is currently somnolent on BiPAP in the ICU and appears comfortable. VITAL SIGNS: Blood pressure 116/40, heart rate 76 in sinus rhythm, afebrile, resp rate 20, saturation 95%, wearing BiPAP with a setting of 40% FiO2. HEENT: Reveals poor dentition and he appears disheveled and has a long gomes. He is currently on a BiPAP. NECK: His neck is not visible because of the gomes. CHEST: Increased AP diameter and fair air entry, prolonged expiratory phase. No wheezing, rales or rhonchi. ABDOMEN: Obese with normal bowel sounds, nontender. EXTREMITIES: 1+ edema to the knees. No clubbing or cyanosis. He does have yellow discoloration of his nails of his hands consistent with his heavy smoking history. NEUROLOGIC: He is currently sleepy but he is moving all extremities and was previously speaking and was grossly intact. LABORATORY DATA: Normal electrolytes. BUN 36, creatinine 1.7 (he has chronic fluctuating elevated creatinine levels in the past between 1.4 and 2.0), glucose 92. Liver tests normal, bilirubin normal. High-sensitivity troponin normal at 10. BNP 280. Lipase normal. White blood count 10.6 with hemoglobin 12.4 and platelet count normal at 261. No INR was done yet. IMAGING: Chest x-ray shows hyper-expanded lungs and no acute findings. EKG: Shows sinus rhythm and left bundle branch block. The LBBB is old. IMPRESSION/DIAGNOSES: 1. COPD exacerbation. 2. Chronic kidney disease. 3. Smoker. 4. Chronic congestive heart failure (on his 2 admissions here last year, 2 Echoes were done that showed mildly depressed left ventricular ejection fraction of 40% and on the next one, the eEho showed preserved left ventricular ejection fraction). 5. History of atrial fibrillation, for which he is on amiodarone to maintain sinus rhythm. 6. Morbid obesity. 7. Sleep apnea, on CPAP. 8. IDDM. PLAN: Admit the patient to ICU, on telemetry. Continue with BiPAP, adjusting the settings and titrating down when possible. Use his CPAP device when he is off the BiPAP. Continue with his medications for diabetes, and for maintenance of sinus rhythm continue with amiodarone and would recommend changing his Coreg, which is not beta-1 selective, and could add to bronchospasm, to long-acting metoprolol, which is beta-1 selective. Will start with IV Solu-Medrol, nebs q.i.d. and every 4 hours p.r.n., Mucinex and add Singulair orally at night to his regimen. He currently appears euvolemic. Will not use IV fluids because of his congestive heart failure history but will also not give the Demadex currently because of his renal insufficiency. Follow his BMP daily and CBC daily. DEEP VENOUS THROMBOSIS: PROPHYLAXIS: Pharmacotherapy using subcutaneous heparin. CODE STATUS: FULL CODE. ATTESTATION: The patient is expected to be discharged or transferred to another facility within 96 hours: Yes. TD: 02/01/2019 18:52 KERRY
[2019-02-01] MEDS: IPRATROPIUM 0.2 MG/ML NEB INH SCH (20:31)
[2019-02-01] MEDS: INSULIN ASPART 300 UNIT/3 ML PEN SUBQ SCH (21:12)
[2019-02-01] MEDS: FAMOTIDINE 20 MG TABLET PO SCH (21:12)
[2019-02-01] MEDS: MONTELUKAST 10 MG TABLET PO SCH (21:12)
[2019-02-01] MEDS: QUEtiapine 25 MG TABLET PO SCH (21:12)
[2019-02-01] MEDS: guaiFENesin 600 MG TABLET PO SCH (21:12)
[2019-02-01] MEDS: HEPARIN 5,000 UNIT/ML VIAL SUBQ SCH (21:13)
[2019-02-01] MEDS: MIN OIL/DIMETHICON/COCONUT OIL 92 GM TUBE TOP PRN ×2 (21:31→23:15)
[2019-02-01] MEDS ORDERED: HALOPERIDOL 5 MG/ML VIAL IVP ONE (21:57)
[2019-02-01] MEDS: SODIUM CHLORIDE FLUSH 0.9% 10 ML SYRINGE IVP SCH (23:32)
[2019-02-01] MEDS: methylPREDNISolone SUCCINATE 125 MG/2 ML VIAL IVP SCH (23:32)
[2019-02-02 05:33] LABS: BASOPHILS % (AUTO) 0.2 %; HGB - HEMOGLOBIN 12.3 g/dL (14.0-18.0); LYMPHOCYTES # (AUTO) 0.4 10^3/uL (1.5-3.5); LYMPHOCYTES % (AUTO) 4.5 %; MEAN CORPUSCULAR HEMOGLOBIN 31.7 pg (27.0-31.0); MEAN CORPUSCULAR HGB CONC 31.2 g/dL (32.0-36.0); MEAN CORPUSCULAR VOLUME 101.5 fL (80.0-94.0); MEAN PLATELET VOLUME 8.9 fL (7.4-11.4); MONOCYTES # (AUTO) 0.1 10^3/uL (0.0-1.0); MONOCYTES % (AUTO) 0.6 %; NEUTROPHILS # (AUTO) 8.6 10^3/uL (1.5-6.6); NEUTROPHILS % (AUTO) 94.1 %; PLT - PLATELET COUNT 256 10^3/uL (130-450); RED BLOOD COUNT 3.88 10^6/uL (4.70-6.10); RED CELL DISTRIBUTION WIDTH 12.7 % (12.0-15.0); WHITE BLOOD COUNT 9.1 x10^3/uL (4.8-10.8)
[2019-02-02 05:47] LABS: CREATININE 1.6 mg/dL (0.6-1.2); HB2 TOTAL 12.2 g/dL; HEMOGLOBIN A1C 0.66 g/dL; HEMOGLOBIN A1C % 7.1 % (4.6-6.2); MAGNESIUM 2.4 mg/dL (1.7-2.8); PHOSPHORUS 4.4 mg/dL (2.5-4.6)
[2019-02-02 07:47] LABS: VBG PH 7.36 (7.31-7.41)
[2019-02-02] MEDS: INSULIN ASPART 300 UNIT/3 ML PEN SUBQ SCH ×4 (08:02→20:26)
[2019-02-02] MEDS: SODIUM CHLORIDE FLUSH 0.9% 10 ML SYRINGE IVP SCH ×2 (08:06→16:58)
[2019-02-02] MEDS: methylPREDNISolone SUCCINATE 125 MG/2 ML VIAL IVP SCH (08:06)
[2019-02-02] MEDS: ASPIRIN EC 81 MG TABLET PO SCH (09:17)
[2019-02-02] MEDS: METOPROLOL SUCCINATE 25 MG TABLET PO SCH (09:18)
[2019-02-02] MEDS: AMIODARONE 200 MG TABLET PO SCH (09:18)
[2019-02-02] MEDS: SERTRALINE 50 MG TABLET PO SCH (09:18)
[2019-02-02] MEDS: FAMOTIDINE 20 MG TABLET PO SCH (09:18)
[2019-02-02] MEDS: HEPARIN 5,000 UNIT/ML VIAL SUBQ SCH ×2 (09:19→21:23)
[2019-02-02] MEDS: CALCIUM CARBONATE 1,250 MG/5 ML UDC PO SCH ×2 (09:19→12:14)
[2019-02-02] MEDS: guaiFENesin 600 MG TABLET PO SCH ×2 (09:19→21:17)
[2019-02-02] MEDS: IPRATROPIUM 0.2 MG/ML NEB INH SCH ×4 (09:53→21:46)
[2019-02-02] MEDS: ALBUTEROL NEB 2.5 MG/3 ML INH PRN ×3 (09:53→17:43)
--- NOTE | 2019-02-02 12:15 | PHARMACY PROGRESS NOTE ---
- Best Possible Medication History Admit Date and Time: 02/01/19 1712 Processed by: Pharmacy Medication History completed: Yes Patient Interview: Pt unable to participate Secondary Source(s): Caregiver, Pharmacy records, Insurance records As the person ultimately responsible for medication therapy, providers are able to order a medication from an existing home medication list in [facility] via the "Reconcile Routine" prior to Confirmation of that medication by cryptologic support specialist. Such practice is discouraged except when the physician, in their clinical judgment, deems that a medical need exists for a medication without regard to previous use.
[2019-02-02] MEDS: AZITHROMYCIN 250 MG TABLET PO SCH (13:53)
--- NOTE | 2019-02-02 15:50 | PROVIDER PROGRESS NOTE ---
Assessment/Plan - Problem List (1) COPD exacerbation Assessment/Plan: He has come off BiPAP and is tolerating nasal cannula. Will decrease his Solu-Medrol dosing. Continue with nebulizers scheduled and PRN. Continue with Singulair and Mucinex. Continue O2, he is on home O2 at 3L/min. Will transfer out of the ICU. (2) CKD (chronic kidney disease), stage III Assessment/Plan: Creatinine improved fminimally rom 1.7 yesterday to 1.6 with current management. Follow BMP daily. Follow Mg, on duretics. (3) Tobacco abuse Assessment/Plan: He is not describing an urge to smoke, however he has signed out AMA on previous admissions in order to smoke. Will order Nicotine patch. (4) Chronic CHF Assessment/Plan: Prior Echos was done here showed LVEF of 45% in February 2017, and by June 2017, the LVEF by Echo had improved to 70%. Yesterday, his Coreg was changed to a beta-1 selective beta-sarah, using Toprol-XL, on this admission, in order to avoid bronchospasm from a nonselective beta-sarah. We have no Echo service here until February 07, 2019, therefore no Echo can be done on this admission. Troponins were stable, ruling out an acute event. He seems euvolemic currently. Will resume his diuretics. He was not on an LINDA or ARB or Hydralazine + Nitrates at home. (5) Hx of atrial fibrillation without current medication Assessment/Plan: He is on daily amiodarone which is maintaining him in normal sinus rhythm. (6) NGOC on CPAP Assessment/Plan: Now that he is off BiPAP, will order his home CPAP unit to use at night (7) IDDM (insulin dependent diabetes mellitus) Assessment/Plan: His A1c was 7.1, inicating good glu control. Fingerstick glucoses are running 200s here, but he is on steroids. Will resume his Lantus twice daily. He is on CC diet and SS insulin. (8) Confusion Assessment/Plan: Our SW, Charity, spoke today to a nurse at [facility], who did confirm that the man was confused yesterday, and does get confused when his oxygem level is low. But, that there was no recent cyanide poisoning going on. Continue to re-orient the patient. - Current Meds Current Meds: Current Medications Generic Name Dose Route Start Last Admin Trade Name Freq PRN Reason Stop Dose Admin Albuterol 2.5 mg 02/01/19 17:24 02/02/19 13:33 INH 2.5 mg Q4HR PRN Administration Wheezing Amiodarone HCl 200 mg 02/02/19 09:00 02/02/19 09:18 Pacerone PO 200 mg DAILY JAMI Administration Aspirin 81 mg 02/02/19 09:00 02/02/19 09:17 Ecotrin PO 81 mg DAILY JAMI Administration Azithromycin 500 mg 02/02/19 13:00 02/02/19 13:53 Zithromax PO 02/05/19 00:00 500 mg DAILY JAMI Administration Calcium Carbonate/Glycine 500 mg 02/02/19 09:00 02/02/19 12:14 Calcium Carbonate PO 500 mg QID JAMI Administration Famotidine 20 mg 02/01/19 21:00 02/02/19 09:18 Pepcid PO 20 mg DAILY JAMI Administration Guaifenesin 600 mg 02/01/19 21:00 02/02/19 09:19 Mucinex PO 600 mg BID JAMI Administration Heparin Sodium (Porcine) 5,000 unit 02/01/19 21:00 02/02/19 09:19 SUBQ 5,000 unit BID JAMI Administration Insulin Aspart 2 - 10 unit 02/02/19 12:15 02/02/19 12:13 Novolog SUBQ 10 unit 0800,1200,1700,2100 JAMI Administration Protocol Ipratropium [place] 0.5 mg 02/01/19 19:00 02/02/19 13:33 Atrovent INH 0.5 mg RTQID JAMI Administration Methylprednisolone Sodium Succinate 125 mg 02/01/19 23:50 02/02/19 08:06 Solu-Medrol (125mg Vial) IVP 125 mg Q8H JAMI Administration Metoprolol Succinate 25 mg 02/02/19 09:00 02/02/19 09:18 Toprol Xl PO 25 mg DAILY JAMI Administration Mineral Oil 1 applic 02/01/19 19:55 02/01/19 23:15 Cavilon TOP 1 applic PRN PRN Administration Skin Care Montelukast Sodium 10 mg 02/01/19 21:00 02/01/19 21:12 Singulair PO 10 mg QPM JAMI Administration Quetiapine Fumarate 25 mg 02/01/19 21:00 02/01/19 21:12 Seroquel PO 25 mg QPM JAMI Administration Sertraline HCl 100 mg 02/02/19 09:00 02/02/19 09:18 Zoloft PO 100 mg DAILY JAMI Administration Sodium Chloride 10 ml 02/02/19 01:00 02/02/19 08:06 Normal Saline Flush 0.9% IVP 20 ml 0100,0900,1700 JAMI Administration Sodium Chloride 10 ml 02/01/19 17:24 02/01/19 22:02 Normal Saline Flush 0.9% IVP 10 ml PRN PRN Administration NEEDED PER PROVIDER ORDERS - Lab Result Fish Bone Diagrams: 02/02/19 05:00 02/02/19 05:00 - Additional Planning My Orders: My Active Orders 02/01/19 17:24 Activity Orders [RC] Q2HR Daily Weight [RC] 0600 Home CPAP/BiPAP/NPPV [RC] .ONCE IO [RC] Q12H Initiate Bowel Care Protocol [RC] QSHIFT Initiate ICU Electrolyte Prot. [RC] .protocol Initiate Line Care Protocol [RC] .protocol Initiate Personal Care Protoco [RC] .protocol Vital Signs [RC] Q2HR Albuterol 2.5 mg INH Q4HR PRN Sodium Chloride Flush 0.9% [Normal Saline Flush 0.9%] 10 ml IVP PRN PRN Code Status [OTHERS] Routine Condition of Patient [OTHERS] Routine DVT Prophylaxis [OTHERS] Routine 02/01/19 17:26 BIPAP/CPAP - RT [RC] Routine Oral Care - Nursing [RC] Routine Telemetry- [RC] Q4HR 02/01/19 17:32 Blood Glucose Checks - Eating [RC] 0800,1200,1700,2100 Initiate Hypoglycemia Protocol [RC] .protocol Acetaminophen [Tylenol] 650 mg PO Q4HR PRN 02/01/19 19:00 Ipratropium [Atrovent] 0.5 mg INH RTQID 02/01/19 19:55 Min Oil/Dimeth/Coconut Oil Crm [Cavilon] 1 applic TOP PRN PRN 02/01/19 21:00 Famotidine [Pepcid] 20 mg PO DAILY Heparin 5,000 unit SUBQ BID Montelukast [Singulair] 10 mg PO QPM QUEtiapine [SEROquel] 25 mg PO QPM guaiFENesin [Mucinex] 600 mg PO BID 02/01/19 23:50 methylPREDNISolone SUCCINATE [SOLU-Medrol (125MG VIAL)] 125 mg IVP Q8H 02/01/19 Dinner Carb-controlled Diet [DIET] 02/02/19 01:00 Sodium Chloride Flush 0.9% [Normal Saline Flush 0.9%] 10 ml IVP 0100,0900,1700 02/02/19 09:00 Amiodarone [Pacerone] 200 mg PO DAILY Aspirin EC [Ecotrin] 81 mg PO DAILY Calcium Carbonate 500 mg PO QID Metoprolol Succinate [Toprol Xl] 25 mg PO DAILY Sertraline [Zoloft] 100 mg PO DAILY 02/02/19 09:55 Nebulizer [Nebulizer/MDI Tx.] [] .qid 02/02/19 10:01 Bowel - Constipation Care [] ONCE 02/02/19 12:15 Insulin Aspart [NovoLOG] 2 - 10 unit SUBQ 0800,1200,1700,2100 02/02/19 13:00 Azithromycin [Zithromax] 500 mg PO DAILY 02/02/19 15:38 Transfer [Admit \\ Transfer \\ Status] [] .ONCE 02/03/19 05:00 BMP - BASIC METABOLIC PANEL [CHEM] DAILYLAB BNP - B-NATRIURETIC PEPTIDE [IAI] DAILYLAB CBC - COMP BLD CT W/AUTO DIFF [HEME] DAILYLAB MAGNESIUM [CHEM] DAILYLAB PHOSPHORUS [CHEM] DAILYLAB Subjective - Subjective Patient Reports: Feeling Better, Cough, Other ("I think I drank water that was poisoned with Cyanide". "I was goofy yesterday when the ambulance was picking me up and all riled up and can't remember the details of the poisonong".) Objective Vital Signs: Vital Signs - 24 hr 02/01/19 02/01/19 02/01/19 16:06 16:45 16:50 Temperature Heart Rate 73 71 70 Heart Rate [ Monitoring electrodes] Respiratory 24 22 23 Rate Blood Pressure 100/44 L 112/93 H Blood Pressure [Left] O2 Saturation 92 92 02/01/19 02/01/19 02/01/19 17:00 17:15 17:30 Temperature Heart Rate 71 69 71 Heart Rate [ Monitoring electrodes] Respiratory 21 22 19 Rate Blood Pressure 94/50 L 94/56 L 97/51 L Blood Pressure [Left] O2 Saturation 92 95 96 02/01/19 02/01/19 02/01/19 17:40 17:57 18:00 Temperature Heart Rate 74 71 69 Heart Rate [ Monitoring electrodes] Respiratory 22 9 L 18 Rate Blood Pressure 114/55 L Blood Pressure [Left] O2 Saturation 95 02/01/19 02/01/19 02/01/19 18:05 18:06 18:10 Temperature Heart Rate 69 68 71 Heart Rate [ Monitoring electrodes] Respiratory 18 20 Rate Blood Pressure Blood Pressure [Left] O2 Saturation 02/01/19 02/01/19 02/01/19 18:15 18:20 18:21 Temperature Heart Rate 72 68 67 Heart Rate [ Monitoring electrodes] Respiratory 22 17 20 Rate Blood Pressure Blood Pressure [Left] O2 Saturation 02/01/19 02/01/19 02/01/19 18:22 18:25 18:30 Temperature Heart Rate 69 69 70 Heart Rate [ Monitoring electrodes] Respiratory 19 20 18 Rate Blood Pressure 102/52 L Blood Pressure [Left] O2 Saturation 02/01/19 02/01/19 02/01/19 18:31 18:35 18:40 Temperature Heart Rate 67 67 69 Heart Rate [ Monitoring electrodes] Respiratory 19 20 19 Rate Blood Pressure 97/51 L Blood Pressure [Left] O2 Saturation 02/01/19 02/01/19 02/01/19 18:45 18:46 18:50 Temperature Heart Rate 68 67 67 Heart Rate [ Monitoring electrodes] Respiratory 20 21 19 Rate Blood Pressure 96/51 L Blood Pressure [Left] O2 Saturation 02/01/19 02/01/19 02/01/19 18:55 19:00 19:01 Temperature 36.5 C Heart Rate 66 69 67 Heart Rate [ 74 Monitoring electrodes] Respiratory 21 19 20 Rate Blood Pressure 95/51 L Blood Pressure 95/51 L [Left] O2 Saturation 94 02/01/19 02/01/19 02/01/19 19:05 19:10 19:15 Temperature Heart Rate 67 67 79 Heart Rate [ Monitoring electrodes] Respiratory 23 19 20 Rate Blood Pressure Blood Pressure [Left] O2 Saturation 02/01/19 02/01/19 02/01/19 19:16 19:20 19:25 Temperature Heart Rate 75 71 68 Heart Rate [ Monitoring electrodes] Respiratory 22 21 18 Rate Blood Pressure 104/81 H Blood Pressure [Left] O2 Saturation 02/01/19 02/01/19 02/01/19 19:30 19:31 19:35 Temperature Heart Rate 68 68 72 Heart Rate [ Monitoring electrodes] Respiratory 17 18 21 Rate Blood Pressure 92/46 L Blood Pressure [Left] O2 Saturation 02/01/19 02/01/19 02/01/19 19:40 19:45 19:50 Temperature 36.5 C Heart Rate 71 69 68 Heart Rate [ 68 Monitoring electrodes] Respiratory 19 18 16 Rate Blood Pressure Blood Pressure 92/46 L [Left] O2 Saturation 95 02/01/19 02/01/19 02/01/19 19:55 20:00 20:01 Temperature Heart Rate 69 69 69 Heart Rate [ 69 Monitoring electrodes] Respiratory 20 19 19 Rate Blood Pressure 90/49 L Blood Pressure 90/49 L [Left] O2 Saturation 95 02/01/19 02/01/19 02/01/19 20:05 20:10 20:15 Temperature Heart Rate 68 67 65 Heart Rate [ Monitoring electrodes] Respiratory 20 18 21 Rate Blood Pressure Blood Pressure [Left] O2 Saturation 02/01/19 02/01/19 02/01/19 20:20 20:25 20:30 Temperature Heart Rate 66 67 77 Heart Rate [ Monitoring electrodes] Respiratory 17 18 19 Rate Blood Pressure Blood Pressure [Left] O2 Saturation 02/01/19 02/01/19 02/01/19 20:35 20:40 20:45 Temperature Heart Rate 68 67 66 Heart Rate [ Monitoring electrodes] Respiratory 21 20 18 Rate Blood Pressure Blood Pressure [Left] O2 Saturation 02/01/19 02/01/19 02/01/19 20:50 20:55 21:00 Temperature Heart Rate 64 69 74 Heart Rate [ 77 Monitoring electrodes] Respiratory 17 22 33 H Rate Blood Pressure Blood Pressure 104/73 [Left] O2 Saturation 02/01/19 02/01/19 02/01/19 21:01 21:05 21:35 Temperature Heart Rate 80 83 82 Heart Rate [ Monitoring electrodes] Respiratory 28 H 25 H 20 Rate Blood Pressure 104/73 Blood Pressure [Left] O2 Saturation 02/01/19 02/01/19 02/01/19 21:40 21:45 21:50 Temperature Heart Rate 83 82 81 Heart Rate [ Monitoring electrodes] Respiratory 19 22 26 H Rate Blood Pressure Blood Pressure [Left] O2 Saturation 02/01/19 02/01/19 02/01/19 21:55 22:00 22:01 Temperature Heart Rate 82 82 82 Heart Rate [ Monitoring electrodes] Respiratory 30 H 22 19 Rate Blood Pressure 100/57 L Blood Pressure [Left] O2 Saturation 02/01/19 02/01/19 02/01/19 22:05 22:10 22:15 Temperature Heart Rate 88 86 83 Heart Rate [ Monitoring electrodes] Respiratory 19 20 20 Rate Blood Pressure Blood Pressure [Left] O2 Saturation 02/01/19 02/01/19 02/01/19 22:20 22:25 22:26 Temperature Heart Rate 82 79 79 Heart Rate [ Monitoring electrodes] Respiratory 21 18 Rate Blood Pressure Blood Pressure [Left] O2 Saturation 02/01/19 02/01/19 02/01/19 22:30 22:35 22:40 Temperature Heart Rate 84 80 79 Heart Rate [ Monitoring electrodes] Respiratory 25 H 24 21 Rate Blood Pressure Blood Pressure [Left] O2 Saturation 02/01/19 02/01/19 02/01/19 22:45 22:50 22:55 Temperature Heart Rate 78 78 78 Heart Rate [ Monitoring electrodes] Respiratory 20 20 20 Rate Blood Pressure Blood Pressure [Left] O2 Saturation 02/01/19 02/01/19 02/01/19 23:00 23:01 23:05 Temperature Heart Rate 80 81 77 Heart Rate [ 81 Monitoring electrodes] Respiratory 19 19 26 H Rate Blood Pressure 89/69 L Blood Pressure 89/69 L [Left] O2 Saturation 98 02/01/19 02/01/19 02/01/19 23:10 23:15 23:20 Temperature Heart Rate 75 75 75 Heart Rate [ Monitoring electrodes] Respiratory 13 19 22 Rate Blood Pressure Blood Pressure [Left] O2 Saturation 02/01/19 02/01/19 02/01/19 23:25 23:30 23:35 Temperature Heart Rate 75 73 75 Heart Rate [ Monitoring electrodes] Respiratory 23 18 18 Rate Blood Pressure Blood Pressure [Left] O2 Saturation 02/01/19 02/01/19 02/01/19 23:40 23:45 23:50 Temperature Heart Rate 75 75 71 Heart Rate [ Monitoring electrodes] Respiratory 22 21 21 Rate Blood Pressure Blood Pressure [Left] O2 Saturation 02/01/19 02/02/19 02/02/19 23:55 00:00 00:01 Temperature Heart Rate 75 76 75 Heart Rate [ Monitoring electrodes] Respiratory 23 19 19 Rate Blood Pressure 106/53 L Blood Pressure [Left] O2 Saturation 02/02/19 02/02/19 02/02/19 00:05 00:10 00:15 Temperature Heart Rate 73 74 75 Heart Rate [ Monitoring electrodes] Respiratory 24 21 23 Rate Blood Pressure Blood Pressure [Left] O2 Saturation 02/02/19 02/02/19 02/02/19 00:20 00:25 00:30 Temperature Heart Rate 78 74 75 Heart Rate [ Monitoring electrodes] Respiratory 14 20 20 Rate Blood Pressure Blood Pressure [Left] O2 Saturation 02/02/19 02/02/19 02/02/19 00:35 00:40 00:45 Temperature Heart Rate 78 76 76 Heart Rate [ Monitoring electrodes] Respiratory 23 18 28 H Rate Blood Pressure Blood Pressure [Left] O2 Saturation 02/02/19 02/02/19 02/02/19 00:50 00:55 01:00 Temperature Heart Rate 77 75 76 Heart Rate [ 77 Monitoring electrodes] Respiratory 21 21 14 Rate Blood Pressure Blood Pressure 113/53 L [Left] O2 Saturation 96 02/02/19 02/02/19 02/02/19 01:01 01:05 01:10 Temperature Heart Rate 77 77 76 Heart Rate [ Monitoring electrodes] Respiratory 16 18 19 Rate Blood Pressure 113/53 L Blood Pressure [Left] O2 Saturation 02/02/19 02/02/19 02/02/19 01:15 01:20 01:30 Temperature Heart Rate 78 78 76 Heart Rate [ Monitoring electrodes] Respiratory 16 24 13 Rate Blood Pressure Blood Pressure [Left] O2 Saturation 02/02/19 02/02/19 02/02/19 01:35 01:40 01:45 Temperature Heart Rate 75 76 76 Heart Rate [ Monitoring electrodes] Respiratory 17 16 16 Rate Blood Pressure Blood Pressure [Left] O2 Saturation 02/02/19 02/02/19 02/02/19 01:50 01:55 02:00 Temperature Heart Rate 79 77 76 Heart Rate [ Monitoring electrodes] Respiratory 20 17 17 Rate Blood Pressure Blood Pressure [Left] O2 Saturation 02/02/19 02/02/19 02/02/19 02:01 02:05 02:10 Temperature Heart Rate 76 75 77 Heart Rate [ Monitoring electrodes] Respiratory 16 15 17 Rate Blood Pressure 108/55 L Blood Pressure [Left] O2 Saturation 02/02/19 02/02/19 02/02/19 02:15 02:20 02:25 Temperature Heart Rate 76 75 76 Heart Rate [ Monitoring electrodes] Respiratory 17 16 16 Rate Blood Pressure Blood Pressure [Left] O2 Saturation 02/02/19 02/02/19 02/02/19 02:30 02:34 02:35 Temperature Heart Rate 76 75 74 Heart Rate [ Monitoring electrodes] Respiratory 15 20 Rate Blood Pressure Blood Pressure [Left] O2 Saturation 02/02/19 02/02/19 02/02/19 02:40 02:45 02:50 Temperature Heart Rate 77 76 77 Heart Rate [ Monitoring electrodes] Respiratory 17 18 21 Rate Blood Pressure Blood Pressure [Left] O2 Saturation 02/02/19 02/02/19 02/02/19 02:55 03:00 03:01 Temperature Heart Rate 76 78 80 Heart Rate [ 77 Monitoring electrodes] Respiratory 21 22 25 H Rate Blood Pressure 106/63 Blood Pressure 106/63 [Left] O2 Saturation 95 02/02/19 02/02/19 02/02/19 03:05 03:10 03:15 Temperature Heart Rate 77 75 75 Heart Rate [ Monitoring electrodes] Respiratory 19 0 L 18 Rate Blood Pressure Blood Pressure [Left] O2 Saturation 02/02/19 02/02/19 02/02/19 03:20 03:25 03:30 Temperature Heart Rate 74 73 73 Heart Rate [ Monitoring electrodes] Respiratory 17 18 16 Rate Blood Pressure Blood Pressure [Left] O2 Saturation 02/02/19 02/02/19 02/02/19 03:35 03:40 03:45 Temperature Heart Rate 78 86 83 Heart Rate [ Monitoring electrodes] Respiratory 32 H 23 22 Rate Blood Pressure Blood Pressure [Left] O2 Saturation 02/02/19 02/02/19 02/02/19 03:50 03:55 04:00 Temperature 37.0 C Heart Rate 79 77 77 Heart Rate [ Monitoring electrodes] Respiratory 27 H 22 19 Rate Blood Pressure Blood Pressure [Left] O2 Saturation 02/02/19 02/02/19 02/02/19 04:01 04:05 04:10 Temperature Heart Rate 76 75 75 Heart Rate [ Monitoring electrodes] Respiratory 19 19 17 Rate Blood Pressure 117/57 L Blood Pressure [Left] O2 Saturation 02/02/19 02/02/19 02/02/19 04:15 04:20 04:25 Temperature Heart Rate 74 74 75 Heart Rate [ Monitoring electrodes] Respiratory 20 19 21 Rate Blood Pressure Blood Pressure [Left] O2 Saturation 02/02/19 02/02/19 02/02/19 04:30 04:35 04:40 Temperature Heart Rate 73 73 73 Heart Rate [ Monitoring electrodes] Respiratory 21 18 21 Rate Blood Pressure Blood Pressure [Left] O2 Saturation 02/02/19 02/02/19 02/02/19 04:45 04:50 04:55 Temperature Heart Rate 72 72 73 Heart Rate [ Monitoring electrodes] Respiratory 21 15 18 Rate Blood Pressure Blood Pressure [Left] O2 Saturation 02/02/19 02/02/19 02/02/19 05:00 05:01 05:05 Temperature Heart Rate 73 77 74 Heart Rate [ 73 Monitoring electrodes] Respiratory 19 26 H 17 Rate Blood Pressure 121/67 Blood Pressure 121/67 [Left] O2 Saturation 93 02/02/19 02/02/19 02/02/19 05:10 05:15 06:00 Temperature Heart Rate 75 83 68 Heart Rate [ 67 Monitoring electrodes] Respiratory 17 20 17 Rate Blood Pressure Blood Pressure 94/50 L [Left] O2 Saturation 93 02/02/19 02/02/19 02/02/19 06:01 06:05 06:10 Temperature Heart Rate 67 67 68 Heart Rate [ Monitoring electrodes] Respiratory 16 20 27 H Rate Blood Pressure 94/50 L Blood Pressure [Left] O2 Saturation 02/02/19 02/02/19 02/02/19 06:15 06:20 06:25 Temperature Heart Rate 70 74 68 Heart Rate [ Monitoring electrodes] Respiratory 19 16 17 Rate Blood Pressure Blood Pressure [Left] O2 Saturation 02/02/19 02/02/19 02/02/19 06:30 06:35 06:40 Temperature Heart Rate 70 71 69 Heart Rate [ Monitoring electrodes] Respiratory 21 22 21 Rate Blood Pressure Blood Pressure [Left] O2 Saturation 02/02/19 02/02/19 02/02/19 06:45 06:50 06:55 Temperature Heart Rate 68 70 70 Heart Rate [ Monitoring electrodes] Respiratory 20 19 16 Rate Blood Pressure Blood Pressure [Left] O2 Saturation 02/02/19 02/02/19 02/02/19 06:59 07:00 07:01 Temperature Heart Rate 69 68 68 Heart Rate [ 68 Monitoring electrodes] Respiratory 19 16 14 Rate Blood Pressure 110/60 Blood Pressure 110/60 [Left] O2 Saturation 95 02/02/19 02/02/19 02/02/19 07:05 07:10 07:15 Temperature Heart Rate 69 69 67 Heart Rate [ Monitoring electrodes] Respiratory 5 L 11 L Rate Blood Pressure Blood Pressure [Left] O2 Saturation 02/02/19 02/02/19 02/02/19 07:20 07:25 07:30 Temperature Heart Rate 68 69 68 Heart Rate [ Monitoring electrodes] Respiratory 15 11 L 12 Rate Blood Pressure Blood Pressure [Left] O2 Saturation 02/02/19 02/02/19 02/02/19 07:35 07:40 07:45 Temperature Heart Rate 68 67 69 Heart Rate [ Monitoring electrodes] Respiratory 14 24 15 Rate Blood Pressure Blood Pressure [Left] O2 Saturation 02/02/19 02/02/19 02/02/19 07:50 07:54 07:55 Temperature Heart Rate 71 69 70 Heart Rate [ Monitoring electrodes] Respiratory 17 16 Rate Blood Pressure Blood Pressure [Left] O2 Saturation 02/02/19 02/02/19 02/02/19 08:00 08:01 08:05 Temperature Heart Rate 69 70 70 Heart Rate [ 69 Monitoring electrodes] Respiratory 20 18 17 Rate Blood Pressure 119/57 L Blood Pressure 119/57 L [Left] O2 Saturation 93 02/02/19 02/02/19 02/02/19 08:10 08:15 08:20 Temperature Heart Rate 69 71 71 Heart Rate [ Monitoring electrodes] Respiratory 20 18 18 Rate Blood Pressure Blood Pressure [Left] O2 Saturation 02/02/19 02/02/19 02/02/19 08:25 08:30 08:35 Temperature Heart Rate 70 68 72 Heart Rate [ Monitoring electrodes] Respiratory 25 H 19 22 Rate Blood Pressure Blood Pressure [Left] O2 Saturation 02/02/19 02/02/19 02/02/19 08:40 08:45 08:50 Temperature Heart Rate 69 71 70 Heart Rate [ Monitoring electrodes] Respiratory 13 20 22 Rate Blood Pressure Blood Pressure [Left] O2 Saturation 02/02/19 02/02/19 02/02/19 08:55 09:00 09:01 Temperature 36.6 C Heart Rate 81 75 74 Heart Rate [ 78 Monitoring electrodes] Respiratory 21 18 19 Rate Blood Pressure 115/60 Blood Pressure 115/60 [Left] O2 Saturation 94 02/02/19 02/02/19 02/02/19 09:11 09:15 09:20 Temperature Heart Rate 78 81 79 Heart Rate [ Monitoring electrodes] Respiratory 12 17 24 Rate Blood Pressure Blood Pressure [Left] O2 Saturation 02/02/19 02/02/19 02/02/19 09:25 09:30 09:35 Temperature Heart Rate 85 81 84 Heart Rate [ Monitoring electrodes] Respiratory 23 15 19 Rate Blood Pressure Blood Pressure [Left] O2 Saturation 02/02/19 02/02/19 02/02/19 09:40 09:45 09:50 Temperature Heart Rate 81 80 80 Heart Rate [ Monitoring electrodes] Respiratory 19 15 21 Rate Blood Pressure Blood Pressure [Left] O2 Saturation 02/02/19 02/02/19 02/02/19 09:55 09:56 10:00 Temperature Heart Rate 86 80 79 Heart Rate [ Monitoring electrodes] Respiratory 20 15 Rate Blood Pressure Blood Pressure [Left] O2 Saturation 02/02/19 02/02/19 02/02/19 10:01 10:05 10:10 Temperature Heart Rate 78 76 76 Heart Rate [ Monitoring electrodes] Respiratory 19 18 20 Rate Blood Pressure 103/46 L Blood Pressure [Left] O2 Saturation 02/02/19 02/02/19 02/02/19 10:15 10:20 10:25 Temperature Heart Rate 77 77 75 Heart Rate [ Monitoring electrodes] Respiratory 15 25 H 18 Rate Blood Pressure Blood Pressure [Left] O2 Saturation 02/02/19 02/02/19 02/02/19 10:30 10:35 10:40 Temperature Heart Rate 75 72 71 Heart Rate [ Monitoring electrodes] Respiratory 21 26 H 16 Rate Blood Pressure Blood Pressure [Left] O2 Saturation 02/02/19 02/02/19 02/02/19 10:45 10:50 10:55 Temperature Heart Rate 71 71 70 Heart Rate [ Monitoring electrodes] Respiratory 17 23 21 Rate Blood Pressure Blood Pressure [Left] O2 Saturation 02/02/19 02/02/19 02/02/19 11:00 11:01 11:05 Temperature Heart Rate 69 70 70 Heart Rate [ 69 Monitoring electrodes] Respiratory 18 23 21 Rate Blood Pressure 95/48 L Blood Pressure 95/48 L [Left] O2 Saturation 96 02/02/19 02/02/19 02/02/19 11:10 11:15 11:20 Temperature Heart Rate 69 77 70 Heart Rate [ Monitoring electrodes] Respiratory 18 21 16 Rate Blood Pressure Blood Pressure [Left] O2 Saturation 02/02/19 02/02/19 02/02/19 11:25 11:30 11:35 Temperature Heart Rate 69 70 68 Heart Rate [ Monitoring electrodes] Respiratory 19 16 22 Rate Blood Pressure Blood Pressure [Left] O2 Saturation 02/02/19 02/02/19 02/02/19 11:40 11:45 11:50 Temperature Heart Rate 71 73 71 Heart Rate [ Monitoring electrodes] Respiratory 18 20 18 Rate Blood Pressure Blood Pressure [Left] O2 Saturation 02/02/19 02/02/19 02/02/19 11:55 12:00 12:01 Temperature Heart Rate 72 71 71 Heart Rate [ Monitoring electrodes] Respiratory 22 21 20 Rate Blood Pressure 120/68 Blood Pressure [Left] O2 Saturation 02/02/19 02/02/19 02/02/19 12:05 12:10 12:15 Temperature Heart Rate 68 77 76 Heart Rate [ Monitoring electrodes] Respiratory 24 20 20 Rate Blood Pressure Blood Pressure [Left] O2 Saturation 02/02/19 02/02/19 02/02/19 12:20 12:25 12:30 Temperature Heart Rate 80 76 75 Heart Rate [ Monitoring electrodes] Respiratory 18 20 12 Rate Blood Pressure Blood Pressure [Left] O2 Saturation 02/02/19 02/02/19 02/02/19 12:35 12:45 12:50 Temperature Heart Rate 77 77 74 Heart Rate [ Monitoring electrodes] Respiratory 35 H 21 15 Rate Blood Pressure Blood Pressure [Left] O2 Saturation 02/02/19 02/02/19 02/02/19 12:55 13:00 13:05 Temperature Heart Rate 73 73 76 Heart Rate [ Monitoring electrodes] Respiratory 22 24 21 Rate Blood Pressure Blood Pressure [Left] O2 Saturation 02/02/19 02/02/19 02/02/19 13:10 13:15 13:20 Temperature Heart Rate 77 78 78 Heart Rate [ Monitoring electrodes] Respiratory 23 23 20 Rate Blood Pressure Blood Pressure [Left] O2 Saturation 02/02/19 02/02/19 02/02/19 13:25 13:30 13:34 Temperature Heart Rate 83 75 73 Heart Rate [ Monitoring electrodes] Respiratory 28 H 18 22 Rate Blood Pressure Blood Pressure [Left] O2 Saturation 02/02/19 02/02/19 02/02/19 13:35 13:40 13:45 Temperature Heart Rate 73 72 74 Heart Rate [ Monitoring electrodes] Respiratory 24 16 25 H Rate Blood Pressure Blood Pressure [Left] O2 Saturation 02/02/19 02/02/19 02/02/19 13:50 13:55 14:00 Temperature Heart Rate 72 73 74 Heart Rate [ Monitoring electrodes] Respiratory 22 16 21 Rate Blood Pressure Blood Pressure [Left] O2 Saturation 02/02/19 02/02/19 02/02/19 14:05 14:10 15:00 Temperature 36.9 C Heart Rate 75 72 Heart Rate [ 69 Monitoring electrodes] Respiratory 22 24 28 H Rate Blood Pressure Blood Pressure 109/58 L [Left] O2 Saturation 96 Oxygen O2 Source Nasal cannula I&O (Last 24 Hrs): Intake and Output Totals x24h 01/31/19 02/01/19 02/02/19 23:59 23:59 23:59 Intake Total 660 Output Total 425 400 Balance -425 260 General: Alert, No acute distress HEENT: Atraumatic, Mucous membr. moist/pink, Other ([place] O2 n.c.) Neck: Supple Neuro: Alert, Other (Possibly confused. Oriented to person and place now. Non- focal exam, grossly.) Cardiovascular: Regular rate, No murmurs Respiratory: Breath sounds nml Abdomen: Soft, Other (Obese with pannus) Extremities: Other (Trace pre-tibial edema) - Results Results: Laboratory Results WBC 9.1 x10^3/uL (4.8-10.8) 02/02/19 05:00 RBC 3.88 10^6/uL (4.70-6.10) L 02/02/19 05:00 Hgb 12.3 g/dL (14.0-18.0) L 02/02/19 05:00 Hct 39.4 % (42.0-52.0) L 02/02/19 05:00 MCV 101.5 fL (80.0-94.0) H 02/02/19 05:00 MCH 31.7 pg (27.0-31.0) H 02/02/19 05:00 MCHC 31.2 g/dL (32.0-36.0) L 02/02/19 05:00 RDW 12.7 % (12.0-15.0) 02/02/19 05:00 Plt Count 256 10^3/uL (130-450) 02/02/19 05:00 MPV 8.9 fL (7.4-11.4) 02/02/19 05:00 Neut # (Auto) 8.6 10^3/uL (1.5-6.6) H 02/02/19 05:00 Lymph # (Auto) 0.4 10^3/uL (1.5-3.5) L 02/02/19 05:00 [place] # (Auto) 0.1 10^3/uL (0.0-1.0) 02/02/19 05:00 Eos # (Auto) 0.0 10^3/uL (0.0-0.7) 02/02/19 05:00 Baso # (Auto) 0.0 10^3/uL (0.0-0.1) 02/02/19 05:00 Absolute Nucleated RBC 0.00 x10^3/uL 02/02/19 05:00 Nucleated RBC % 0.0 /100WBC 02/02/19 05:00 PT 13.2 secs (9.9-12.6) H 02/01/19 15:53 INR 1.2 (0.8-1.2) 02/01/19 15:53 VBG pH 7.360 (7.31-7.41) 02/02/19 07:41 Ionized Calcium 1.08 mmol/L (1.15-1.33) L 02/02/19 07:41 Sodium 142 mmol/L (135-145) 02/02/19 05:00 Potassium 3.7 mmol/L (3.5-5.0) 02/02/19 05:00 Chloride 100 mmol/L (101-111) L 02/02/19 05:00 Carbon Dioxide 33 mmol/L (21-32) H 02/02/19 05:00 Anion Gap 9.0 (6-13) 02/02/19 05:00 BUN 36 mg/dL (6-20) H 02/02/19 05:00 Creatinine 1.6 mg/dL (0.6-1.2) H 02/02/19 05:00 Estimated GFR (MDRD) 43 (>89) L 02/02/19 05:00 Glucose 202 mg/dL (70-100) H 02/02/19 05:00 Glycated Hemoglobin 7.1 % (4.6-6.2) H 02/02/19 05:00 Estim Average Glucose 157 (70-100) H 02/02/19 05:00 Calcium 8.0 mg/dL (8.5-10.3) L 02/02/19 05:00 Phosphorus 4.4 mg/dL (2.5-4.6) 02/02/19 05:00 Magnesium 2.4 mg/dL (1.7-2.8) 02/02/19 05:00 Total Bilirubin 0.6 mg/dL (0.2-1.0) 02/01/19 15:53 AST 21 IU/L (10-42) 02/01/19 15:53 ALT 25 IU/L (10-60) 02/01/19 15:53 Alkaline Phosphatase 72 IU/L (42-121) 02/01/19 15:53 Troponin I High Sens 10.8 ng/L (2.3-19.7) 02/01/19 15:53 B-Natriuretic Peptide 295 pg/mL (5-100) H 02/02/19 05:00 Total Protein 7.6 g/dL (6.7-8.2) 02/01/19 15:53 Albumin 3.4 g/dL (3.2-5.5) 02/01/19 15:53 Globulin 4.2 g/dL (2.1-4.2) 02/01/19 15:53 Albumin/Globulin Ratio 0.8 (1.0-2.2) L 02/01/19 15:53 Lipase 33 U/L (22-51) 02/01/19 15:53 Nasal Screen MRSA (PCR) NEGATIVE (NEGATIVE) 02/01/19 19:15
[2019-02-02] MEDS: CALCIUM CITRATE 250 MG TABLET PO SCH ×2 (16:07→21:20)
[2019-02-02] MEDS: methylPREDNISolone SUCCINATE 40 MG/ML VIAL IVP SCH ×2 (16:10→21:17)
[2019-02-02] MEDS ORDERED: CALCIUM CARBONATE 1,250 MG/5 ML UDC PO SCH (17:00)
[2019-02-02] MEDS: QUEtiapine 25 MG TABLET PO SCH (21:17)
[2019-02-02] MEDS: MONTELUKAST 10 MG TABLET PO SCH (21:23)
[2019-02-03 05:14] LABS: BASOPHILS # (AUTO) 0.1 10^3/uL (0.0-0.1); BASOPHILS % (AUTO) 0.3 %; HGB - HEMOGLOBIN 12.9 g/dL (14.0-18.0); LYMPHOCYTES # (AUTO) 0.7 10^3/uL (1.5-3.5); LYMPHOCYTES % (AUTO) 3.6 %; MEAN CORPUSCULAR HEMOGLOBIN 31.5 pg (27.0-31.0); MEAN CORPUSCULAR HGB CONC 30.9 g/dL (32.0-36.0); MONOCYTES # (AUTO) 0.3 10^3/uL (0.0-1.0); MONOCYTES % (AUTO) 1.6 %; NEUTROPHILS # (AUTO) 17.7 10^3/uL (1.5-6.6); NEUTROPHILS % (AUTO) 93.8 %; PLT - PLATELET COUNT 336 10^3/uL (130-450); RED BLOOD COUNT 4.09 10^6/uL (4.70-6.10); RED CELL DISTRIBUTION WIDTH 12.8 % (12.0-15.0); WHITE BLOOD COUNT 18.9 x10^3/uL (4.8-10.8)
[2019-02-03 05:21] LABS: CALCIUM 8.6 mg/dL (8.5-10.3); CREATININE 1.6 mg/dL (0.6-1.2); MAGNESIUM 2.7 mg/dL (1.7-2.8)
[2019-02-03] MEDS: SODIUM CHLORIDE FLUSH 0.9% 10 ML SYRINGE IVP SCH ×2 (06:38→08:49)
[2019-02-03] MEDS: methylPREDNISolone SUCCINATE 40 MG/ML VIAL IVP SCH (06:38)
[2019-02-03] MEDS: FAMOTIDINE 20 MG TABLET PO SCH (08:37)
[2019-02-03] MEDS: SERTRALINE 50 MG TABLET PO SCH (08:37)
[2019-02-03] MEDS: ASPIRIN EC 81 MG TABLET PO SCH (08:38)
[2019-02-03] MEDS: AZITHROMYCIN 250 MG TABLET PO SCH (08:38)
[2019-02-03] MEDS: guaiFENesin 600 MG TABLET PO SCH (08:38)
[2019-02-03] MEDS: METOPROLOL SUCCINATE 25 MG TABLET PO SCH (08:38)
[2019-02-03] MEDS: IPRATROPIUM 0.2 MG/ML NEB INH SCH (08:40)
[2019-02-03] MEDS: ALBUTEROL NEB 2.5 MG/3 ML INH PRN (08:40)
[2019-02-03] MEDS: HEPARIN 5,000 UNIT/ML VIAL SUBQ SCH (08:41)
[2019-02-03] MEDS: INSULIN ASPART 300 UNIT/3 ML PEN SUBQ SCH ×2 (08:43→12:02)
--- NOTE | 2019-02-03 08:52 | PROVIDER PROGRESS NOTE ---
Assessment/Plan - Problem List (1) COPD exacerbation Assessment/Plan: He has no wheezing but a cough and rhonchi still present. WBC was normal at 9K - 10K but increased today, after 2 days of iv steroids whi ch likely caused this. Will decrease his iv steroids. Will continue nebs, but RT recommended changing Albuterol to Duoneb and adding inh Pulmicort bid. Will wean down O2 if possible, walk with PT to measure sats with activity. Today is day #2 of 3 days of empiric Zithromax for bronchitis. The sputum culture is growing something; await identification and sensitivities. Continue Mucinex b.i.d. and new evening Singulair. The patient corrected our information that was in the chart: He does not have oxygen at home, and he does not have a CPAP machine at home. Because of his past confusion, will have SW confirm that with [facility] staff. If possible, he would like to be discharged without oxygen, therefore we will not plan discharge today, give him another day of COPD treatment plus try to wean the supplemental O2 to room air. Oximetry test with walking will be planned with RT when ready. (2) CKD (chronic kidney disease), stage III Assessment/Plan: Slow improvement in BUN/creat daily, with a decreased dose of Torsemide since admission (not bid use here). (3) Tobacco abuse Assessment/Plan: He has signed out AMA on past admissions for wanting to smoke. Cirrently, he does not describe nicotine urges, but has a pack of cigarettes on the table in his room, with a hospital name time motion analyst it,perhaps for reasssurance or due to his habit. (4) Chronic CHF Assessment/Plan: Toprol XL, Lisinopril, Amio and Torsemide, caused hypotension after all given in a.m. yesterday. BP dropped to 89 systolic. BP is "soft" at 111 systolic this am. BNP was 280's but today increased to 470, since no Torsemide bid for 2 days. Will stop the (new) Toprol, hold the Lisinopril, but give Amio, and give Torsemide only once daily and stagger this til noon. We have no Echo here until 02/07/19, so cannot recheck his LVEF. Will therefore follow BNP daily. (5) Hx of atrial fibrillation without current medication Assessment/Plan: Amio is keeping him in NSR (6) IDDM (insulin dependent diabetes mellitus) Assessment/Plan: There was a will to resume his Lantus bid dose, but they appear to be excessive, since his glu are in low 200's and A1c was 7.1. Continue with a cc diet and sliding scale Insulin. Affiliate Marketing Manager to see and give recommendations about his dosing tomorrow (today is Monday and RD is not here on weekends). (7) Confusion Assessment/Plan: The staff at [facility] told the SW that he gets confused when he desaturates. - Current Meds Current Meds: Current Medications Generic Name Dose Route Start Last Admin Trade Name Freq PRN Reason Stop Dose Admin Albuterol 2.5 mg 02/01/19 17:24 02/03/19 08:40 INH 2.5 mg Q4HR PRN Administration Wheezing Amiodarone HCl 200 mg 02/02/19 09:00 02/02/19 09:18 Pacerone PO 200 mg DAILY JAMI Administration Aspirin 81 mg 02/02/19 09:00 02/03/19 08:38 Ecotrin PO 81 mg DAILY JAMI Administration Azithromycin 500 mg 02/02/19 13:00 02/03/19 08:38 Zithromax PO 02/05/19 00:00 500 mg DAILY JAMI Administration Docusate Sodium 250 - 500 mg 02/03/19 09:00 02/03/19 08:42 Colace 250mg Capsule PO Not Given DAILY JAMI Famotidine 20 mg 02/01/19 21:00 02/03/19 08:37 Pepcid PO 20 mg DAILY JAMI Administration Guaifenesin 600 mg 02/01/19 21:00 02/03/19 08:38 Mucinex PO 600 mg BID JAMI Administration Heparin Sodium (Porcine) 5,000 unit 02/01/19 21:00 02/03/19 08:41 SUBQ 5,000 unit BID JAMI Administration Insulin Aspart 2 - 10 unit 02/02/19 12:15 02/03/19 08:43 Novolog SUBQ 2 unit 0800,1200,1700,2100 JAMI Administration Protocol Ipratropium [place] 0.5 mg 02/01/19 19:00 02/03/19 08:40 Atrovent INH 0.5 mg RTQID JAMI Administration Methylprednisolone 80 mg 02/02/19 17:00 02/03/19 06:38 Solu-Medrol (40mg Vial) IVP 02/04/19 00:00 80 mg TID JAMI Administration Mineral Oil 1 applic 02/01/19 19:55 02/01/19 23:15 Cavilon TOP 1 applic PRN PRN Administration Skin Care Montelukast Sodium 10 mg 02/01/19 21:00 02/02/19 21:23 Singulair PO 10 mg QPM JAMI Administration Polyethylene Glycol 17 gm 02/03/19 09:00 02/03/19 08:44 Miralax PO Not Given DAILY JAMI Quetiapine Fumarate 25 mg 02/01/19 21:00 02/02/19 21:17 Seroquel PO 25 mg QPM JAMI Administration Senna 8.6 - 17.2 mg 02/03/19 09:00 02/03/19 08:45 Senokot PO Not Given DAILY JAMI Sertraline HCl 100 mg 02/02/19 09:00 02/03/19 08:37 Zoloft PO 100 mg DAILY JAMI Administration Sodium Chloride 10 ml 02/02/19 01:00 02/03/19 06:38 Normal Saline Flush 0.9% IVP 10 ml 0100,0900,1700 JAMI Administration Sodium Chloride 10 ml 02/01/19 17:24 02/01/19 22:02 Normal Saline Flush 0.9% IVP 10 ml PRN PRN Administration NEEDED PER PROVIDER ORDERS - Lab Result Fish Bone Diagrams: 02/03/19 04:20 02/03/19 04:35 - Additional Planning My Orders: My Active Orders 02/02/19 09:00 Amiodarone [Pacerone] 200 mg PO DAILY Aspirin EC [Ecotrin] 81 mg PO DAILY Metoprolol Succinate [Toprol Xl] 25 mg PO DAILY Sertraline [Zoloft] 100 mg PO DAILY 02/02/19 09:55 Nebulizer [Nebulizer/MDI Tx.] [] .qid 02/02/19 10:01 Bowel - Constipation Care [RC] ONCE 02/02/19 12:15 Insulin Aspart [NovoLOG] 2 - 10 unit SUBQ 0800,1200,1700,2100 02/02/19 13:00 Azithromycin [Zithromax] 500 mg PO DAILY 02/02/19 17:00 methylPREDNISolone SUCCINATE [SOLU-Medrol (40MG VIAL)] 80 mg IVP TID 02/02/19 19:48 Oxygen Therapy [RC] .PRN 02/02/19 19:50 CUL, RESPIRATORY [RM] Routine 02/03/19 09:00 Docusate Sodium 250Mg Capsule [Colace 250Mg Capsule] 250 - 500 mg PO DAILY Polyethylene Glycol 3350 [Miralax] 17 gm PO DAILY Senna [Senokot] 8.6 - 17.2 mg PO DAILY Torsemide 40 mg PO DAILY 02/03/19 12:00 Torsemide 40 mg PO 1200 Subjective - Subjective Patient Reports: Feeling Better, Resting Comfortably, No Complaints Objective Vital Signs: Vital Signs - 24 hr 02/02/19 02/02/19 02/02/19 08:50 08:55 09:00 Temperature 36.6 C Heart Rate 70 81 75 Heart Rate [ Brachial] Heart Rate [ 78 Monitoring electrodes] Respiratory 22 21 18 Rate Blood Pressure Blood Pressure 115/60 [Left] O2 Saturation 94 02/02/19 02/02/19 02/02/19 09:01 09:11 09:15 Temperature Heart Rate 74 78 81 Heart Rate [ Brachial] Heart Rate [ Monitoring electrodes] Respiratory 19 12 17 Rate Blood Pressure 115/60 Blood Pressure [Left] O2 Saturation 02/02/19 02/02/19 02/02/19 09:20 09:25 09:30 Temperature Heart Rate 79 85 81 Heart Rate [ Brachial] Heart Rate [ Monitoring electrodes] Respiratory 24 23 15 Rate Blood Pressure Blood Pressure [Left] O2 Saturation 02/02/19 02/02/19 02/02/19 09:35 09:40 09:45 Temperature Heart Rate 84 81 80 Heart Rate [ Brachial] Heart Rate [ Monitoring electrodes] Respiratory 19 19 15 Rate Blood Pressure Blood Pressure [Left] O2 Saturation 02/02/19 02/02/19 02/02/19 09:50 09:55 09:56 Temperature Heart Rate 80 86 80 Heart Rate [ Brachial] Heart Rate [ Monitoring electrodes] Respiratory 21 20 Rate Blood Pressure Blood Pressure [Left] O2 Saturation 02/02/19 02/02/19 02/02/19 10:00 10:01 10:05 Temperature Heart Rate 79 78 76 Heart Rate [ Brachial] Heart Rate [ Monitoring electrodes] Respiratory 15 19 18 Rate Blood Pressure 103/46 L Blood Pressure [Left] O2 Saturation 02/02/19 02/02/19 02/02/19 10:10 10:15 10:20 Temperature Heart Rate 76 77 77 Heart Rate [ Brachial] Heart Rate [ Monitoring electrodes] Respiratory 20 15 25 H Rate Blood Pressure Blood Pressure [Left] O2 Saturation 02/02/19 02/02/19 02/02/19 10:25 10:30 10:35 Temperature Heart Rate 75 75 72 Heart Rate [ Brachial] Heart Rate [ Monitoring electrodes] Respiratory 18 21 26 H Rate Blood Pressure Blood Pressure [Left] O2 Saturation 02/02/19 02/02/19 02/02/19 10:40 10:45 10:50 Temperature Heart Rate 71 71 71 Heart Rate [ Brachial] Heart Rate [ Monitoring electrodes] Respiratory 16 17 23 Rate Blood Pressure Blood Pressure [Left] O2 Saturation 02/02/19 02/02/19 02/02/19 10:55 11:00 11:01 Temperature Heart Rate 70 69 70 Heart Rate [ Brachial] Heart Rate [ 69 Monitoring electrodes] Respiratory 21 18 23 Rate Blood Pressure 95/48 L Blood Pressure 95/48 L [Left] O2 Saturation 96 02/02/19 02/02/19 02/02/19 11:05 11:10 11:15 Temperature Heart Rate 70 69 77 Heart Rate [ Brachial] Heart Rate [ Monitoring electrodes] Respiratory 21 18 21 Rate Blood Pressure Blood Pressure [Left] O2 Saturation 02/02/19 02/02/19 02/02/19 11:20 11:25 11:30 Temperature Heart Rate 70 69 70 Heart Rate [ Brachial] Heart Rate [ Monitoring electrodes] Respiratory 16 19 16 Rate Blood Pressure Blood Pressure [Left] O2 Saturation 02/02/19 02/02/19 02/02/19 11:35 11:40 11:45 Temperature Heart Rate 68 71 73 Heart Rate [ Brachial] Heart Rate [ Monitoring electrodes] Respiratory 22 18 20 Rate Blood Pressure Blood Pressure [Left] O2 Saturation 02/02/19 02/02/19 02/02/19 11:50 11:55 12:00 Temperature Heart Rate 71 72 71 Heart Rate [ Brachial] Heart Rate [ Monitoring electrodes] Respiratory 18 22 21 Rate Blood Pressure Blood Pressure [Left] O2 Saturation 02/02/19 02/02/19 02/02/19 12:01 12:05 12:10 Temperature Heart Rate 71 68 77 Heart Rate [ Brachial] Heart Rate [ Monitoring electrodes] Respiratory 20 24 20 Rate Blood Pressure 120/68 Blood Pressure [Left] O2 Saturation 02/02/19 02/02/19 02/02/19 12:15 12:20 12:25 Temperature Heart Rate 76 80 76 Heart Rate [ Brachial] Heart Rate [ Monitoring electrodes] Respiratory 20 18 20 Rate Blood Pressure Blood Pressure [Left] O2 Saturation 02/02/19 02/02/19 02/02/19 12:30 12:35 12:45 Temperature Heart Rate 75 77 77 Heart Rate [ Brachial] Heart Rate [ Monitoring electrodes] Respiratory 12 35 H 21 Rate Blood Pressure Blood Pressure [Left] O2 Saturation 02/02/19 02/02/19 02/02/19 12:50 12:55 13:00 Temperature Heart Rate 74 73 73 Heart Rate [ Brachial] Heart Rate [ Monitoring electrodes] Respiratory 15 22 24 Rate Blood Pressure Blood Pressure [Left] O2 Saturation 02/02/19 02/02/19 02/02/19 13:05 13:10 13:15 Temperature Heart Rate 76 77 78 Heart Rate [ Brachial] Heart Rate [ Monitoring electrodes] Respiratory 21 23 23 Rate Blood Pressure Blood Pressure [Left] O2 Saturation 02/02/19 02/02/19 02/02/19 13:20 13:25 13:30 Temperature Heart Rate 78 83 75 Heart Rate [ Brachial] Heart Rate [ Monitoring electrodes] Respiratory 20 28 H 18 Rate Blood Pressure Blood Pressure [Left] O2 Saturation 02/02/19 02/02/19 02/02/19 13:34 13:35 13:40 Temperature Heart Rate 73 73 72 Heart Rate [ Brachial] Heart Rate [ Monitoring electrodes] Respiratory 22 24 16 Rate Blood Pressure Blood Pressure [Left] O2 Saturation 02/02/19 02/02/19 02/02/19 13:45 13:50 13:55 Temperature Heart Rate 74 72 73 Heart Rate [ Brachial] Heart Rate [ Monitoring electrodes] Respiratory 25 H 22 16 Rate Blood Pressure Blood Pressure [Left] O2 Saturation 02/02/19 02/02/19 02/02/19 14:00 14:05 14:10 Temperature Heart Rate 74 75 72 Heart Rate [ Brachial] Heart Rate [ Monitoring electrodes] Respiratory 21 22 24 Rate Blood Pressure Blood Pressure [Left] O2 Saturation 02/02/19 02/02/19 02/02/19 15:00 17:00 17:43 Temperature 36.9 C 37.0 C Heart Rate 73 Heart Rate [ Brachial] Heart Rate [ 69 70 Monitoring electrodes] Respiratory 28 H 23 16 Rate Blood Pressure Blood Pressure 109/58 L 91/49 L [Left] O2 Saturation 96 96 02/02/19 02/03/19 02/03/19 21:00 05:00 05:46 Temperature 37.0 C 36.7 C 37 C Heart Rate 73 Heart Rate [ Brachial] Heart Rate [ 73 88 Monitoring electrodes] Respiratory 19 20 19 Rate Blood Pressure Blood Pressure 89/75 L 122/56 L [Left] O2 Saturation 97 93 97 02/03/19 02/03/19 07:43 07:59 Temperature 36.7 C Heart Rate Heart Rate [ 67 Brachial] Heart Rate [ Monitoring electrodes] Respiratory 18 Rate Blood Pressure Blood Pressure 111/64 [Left] O2 Saturation 95 95 Oxygen O2 Source Nasal cannula I&O (Last 24 Hrs): Intake and Output Totals x24h 02/01/19 02/02/19 02/03/19 23:59 23:59 23:59 Intake Total 860 1150 Output Total 425 400 Balance -803 241 0085 - Results Results: Laboratory Results WBC 18.9 x10^3/uL (4.8-10.8) H 02/03/19 04:20 RBC 4.09 10^6/uL (4.70-6.10) L 02/03/19 04:20 Hgb 12.9 g/dL (14.0-18.0) L 02/03/19 04:20 Hct 41.7 % (42.0-52.0) L 02/03/19 04:20 MCV 102.0 fL (80.0-94.0) H 02/03/19 04:20 MCH 31.5 pg (27.0-31.0) H 02/03/19 04:20 MCHC 30.9 g/dL (32.0-36.0) L 02/03/19 04:20 RDW 12.8 % (12.0-15.0) 02/03/19 04:20 Plt Count 336 10^3/uL (130-450) 02/03/19 04:20 MPV 9.0 fL (7.4-11.4) 02/03/19 04:20 Neut # (Auto) 17.7 10^3/uL (1.5-6.6) H 02/03/19 04:20 Lymph # (Auto) 0.7 10^3/uL (1.5-3.5) L 02/03/19 04:20 [place] # (Auto) 0.3 10^3/uL (0.0-1.0) 02/03/19 04:20 Eos # (Auto) 0.0 10^3/uL (0.0-0.7) 02/03/19 04:20 Baso # (Auto) 0.1 10^3/uL (0.0-0.1) 02/03/19 04:20 Absolute Nucleated RBC 0.00 x10^3/uL 02/03/19 04:20 Nucleated RBC % 0.0 /100WBC 02/03/19 04:20 PT 13.2 secs (9.9-12.6) H 02/01/19 15:53 INR 1.2 (0.8-1.2) 02/01/19 15:53 VBG pH 7.360 (7.31-7.41) 02/02/19 07:41 Ionized Calcium 1.08 mmol/L (1.15-1.33) L 02/02/19 07:41 Sodium 138 mmol/L (135-145) 02/03/19 04:35 Potassium 4.2 mmol/L (3.5-5.0) 02/03/19 04:35 Chloride 97 mmol/L (101-111) L 02/03/19 04:35 Carbon Dioxide 31 mmol/L (21-32) 02/03/19 04:35 Anion Gap 10.0 (6-13) 02/03/19 04:35 BUN 47 mg/dL (6-20) H 02/03/19 04:35 Creatinine 1.6 mg/dL (0.6-1.2) H 02/03/19 04:35 Estimated GFR (MDRD) 43 (>89) L 02/03/19 04:35 Glucose 228 mg/dL (70-100) H 02/03/19 04:35 Glycated Hemoglobin 7.1 % (4.6-6.2) H 02/02/19 05:00 Estim Average Glucose 157 (70-100) H 02/02/19 05:00 Calcium 8.6 mg/dL (8.5-10.3) 02/03/19 04:35 Phosphorus 4.4 mg/dL (2.5-4.6) 02/02/19 05:00 Magnesium 2.7 mg/dL (1.7-2.8) 02/03/19 04:35 Total Bilirubin 0.6 mg/dL (0.2-1.0) 02/01/19 15:53 AST 21 IU/L (10-42) 02/01/19 15:53 ALT 25 IU/L (10-60) 02/01/19 15:53 Alkaline Phosphatase 72 IU/L (42-121) 02/01/19 15:53 Troponin I High Sens 10.8 ng/L (2.3-19.7) 02/01/19 15:53 B-Natriuretic Peptide 477 pg/mL (5-100) H 02/03/19 04:20 Total Protein 7.6 g/dL (6.7-8.2) 02/01/19 15:53 Albumin 3.4 g/dL (3.2-5.5) 02/01/19 15:53 Globulin 4.2 g/dL (2.1-4.2) 02/01/19 15:53 Albumin/Globulin Ratio 0.8 (1.0-2.2) L 02/01/19 15:53 Lipase 33 U/L (22-51) 02/01/19 15:53 Nasal Screen MRSA (PCR) NEGATIVE (NEGATIVE) 02/01/19 19:15
[2019-02-03] MEDS ORDERED: DOCUSATE SODIUM 250 MG CAPSULE PO SCH (09:00)
[2019-02-03] MEDS ORDERED: TORSEMIDE 20 MG TABLET PO SCH ×2 (09:00→12:00)
[2019-02-03] MEDS ORDERED: polyethylene glycoL 3350 17 GM PACKET PO SCH (09:00)
[2019-02-03] MEDS ORDERED: lisinopriL 5 MG TABLET PO SCH (09:00)
[2019-02-03] MEDS ORDERED: SENNA 8.6 MG TABLET PO SCH (09:00)
[2019-02-03] MEDS: AMIODARONE 200 MG TABLET PO SCH (09:11)
[2019-02-03] MEDS ORDERED: BUDESONIDE 0.5 MG/2 ML NEB INH SCH (10:06)
[2019-02-03] MEDS ORDERED: IPRATROPIUM/ALBUTEROL 3 ML NEB INH SCH (11:00)
[2019-02-03 11:41] VITALS: BP 93/49
--- NOTE | 2019-02-03 15:50 | DISCHARGE SUMMARY ---
Discharge Summary Admit Date: 02/01/19 Discharge Date: 02/03/19 Discharging Provider: Dr Johanne Renee Primary Care Provider: Dr Camilla Farias Code Status: Attempt Resuscitation Condition at Discharge: Fair Discharge Disposition: 07 Against Medical Advice - DIAGNOSES Admission Diagnoses: 1) COPD exacerbation 2) CKD 3) Smoker 4) CHF, chronic 5) Hx of Afib 6) IDDM Discharge Diagnoses with Status of Each Condition: see below - HPI History of Present Illness: This is a 73 white male with a history of obesity, insulin-dependent diabetes, CKD, COPD, smoking, diastolic heart failure who lives at [facility]. There is a remote history of CAD, GERD, hepatitis B, cirrhosis and depression. Depression presented with confusion that the staff of [facility] noted and he was feeling "worse for several days". His nebulizer did not give him relief and 9 on 1 was called that brought him to the emergency room. He did not feel better after 1 DuoNeb in the ambulance and 3 more in the ER and he was received steroids and was admitted for COPD exacerbation. - HOSPITAL COURSE Hospital Course: (1) COPD exacerbation Despite increasing the supplemental oxygen, he required BiPAP and was admitted to the ICU for 1 day. The CXR had hyperinflation and no infiltrates. Patient was put on IV steroids which were being tapered down, IV nebulizers 4 times daily and as needed, oral Mucinex, new Singulair, and empiric treatment with Zithromax orally for 3 days. A sputum culture was pending at the time of discharge. His wheezing improved by the second day but he was still desaturating and had a cough. Prior records stated that he had home oxygen to use but he corrected that and stated that there was never home oxygen, and Social Work confirmed this with the [facility] staff. On day 3, he said if possible, he would like to be discharged without oxygen, therefore we planned no discharge til another day to give him another day of COPD treatment plus try to wean the supplemental O2 to room air. But later that same day, he wanted to leave the building to smoke a cigarette. He was urged to stay an additional day for treatment and to be checked for needing home oxygen need. The patient then stated he would not use oxygen even if he did need it. He was advised about the risks of continued smoking, using oxygen near a flame, worsening symptoms if he declined the use of oxygen, and was advised to continue treatment. The patient signed himself out AMA despite the above. (2) CKD (chronic kidney disease), stage III Slow improvement in BUN/creat daily, with holding the Torsemide since admission. (3) Tobacco abuse He has signed out AMA on several past admissions for wanting to smoke. He refused a nicotine patch while here, several times, but had a pack of cigarettes on the table in his room, with a hospital name continuing education instructor it, perhaps for reasss urance of his habit. (4) Chronic CHF In February 2017, his LVEF was 45% by Echo. In June 2017 his LVEF had normalized to 70% and diastolic dysfunction was present by Echo. He was euvolemic this admission and was also hypotensive with his Lisinopril and B-sarah treatments, therefore his torsemide was on hold for 2 days. The plan was to use Toprol-XL instead of his Coreg in order to avoid a nonselective beta-sarah that could be adding to bronchospasm. The plan was to stagger the Torsemide and it was restarted just daily, not b.i.d., on day 3. No Echo was repeated this admission, as we have no Echo here until 02/07/19. (5) Hx of atrial fibrillation without current medication Amiodarone 200 mg daily was continued, it is keeping him in NSR (6) IDDM (insulin dependent diabetes mellitus) There was a plan to resume his Lantus bid dose, but that appeared to be excessive, since his fingerstick glu were in low 200's and A1c was 7.1. He was on a carb controlled diet and sliding scale Insulin. The plan had been for the Process Safety Management Engineer to see him and give recommendations about Insulin dosing on Mon02/04/19, (since this was a Monday and RD is not here on weekends). (7) Confusion He described a suspicion of "being poisoned with cyanide in a water tank" before admission. The staff at [facility] told the SW that he gets confused when he desaturates his oxygen level. Prior records of stated that he has sleep apnea and a CPAP machine at home but he corrected that and says he has no CPAP machine at home. therapeutic activities services worker also checked with [facility], and that information is correct - ALLERGIES Allergies/Adverse Reactions: Allergies Allergy/AdvReac Type Severity Reaction Status Date / Time No Known Drug Allergies Allergy Verified 02/03/19 14:42 - MEDICATIONS Home Medications: Ambulatory Orders Medication Instructions Recorded Confirmed Amiodarone HCl 200 mg PO DAILY 02/28/17 02/02/19 Aspirin 81 mg PO DAILY 02/28/17 02/02/19 Carvedilol [Coreg] 6.25 mg PO BID 02/28/17 02/02/19 Ferrous Sulfate 325 mg PO DAILY 02/28/17 02/02/19 Fluticasone/Salmeterol [Advair 1 puffs INH BID 02/28/17 02/02/19 250-50 Diskus] Insulin Glargine [Lantus Solostar] 50 units SUBQ BID 02/28/17 02/02/19 Lisinopril [Zestril] 2.5 mg PO DAILY 02/28/17 02/02/19 QUEtiapine [SEROquel] 50 mg PO QPM 02/28/17 02/02/19 Sertraline HCl [Zoloft] 100 mg PO QPM 02/28/17 02/02/19 Tiotropium [place] [Spiriva] 1 cap INH DAILY 02/28/17 02/02/19 Torsemide [Demadex] 40 mg PO DAILY 02/28/17 02/02/19 Urea 1 applic TOP DAILY PRN 02/28/17 02/02/19 Albuterol Sulfate [Proair Hfa 2 puffs INH Q4H PRN 02/02/19 02/02/19 Inhaler] - PHYSICAL EXAM AT DISCHARGE General Appearance: positive: No acute distress, Alert, Other (Obese) Eyes Bilateral: positive: Normal inspection ENT: positive: ENT inspection nml, Other (Wearing O2 per n.c.) Neck: positive: Nml inspection, Other (Long gomes, makes eval diffcult) Respiratory: positive: Other (Scattered rhonchi) Cardiovascular: positive: Regular rate & rhythm, No murmur Abdomen: positive: Other (Obese with pannus) Skin: positive: Color nml Extremities: positive: Other (Trace pre-tibial edema. Fingertips yellow (heavy smoker)) Neurologic/Psychiatric: positive: Oriented x3, Other (Grossly normal) - LABS Result Diagrams: 02/03/19 04:20 12/29/19 04:35 - DIAGNOSTIC IMAGING Diagnostic Imaging Results: Final report reviewed - FOLLOW UP Follow Up: See PCP in several days. - TIME SPENT Time Spent in Discharge (Minutes): 60
== END 2019-02-03 14:11 | disposition left against medical advice (07) | DRG 191 ==
LOC: EDUNIT# → ED 15:38 → ICU 17:12
PROVIDERS: ADMIT Internal Medicine; ATTEND Internal Medicine
DX: J44.9 Chronic obstructive pulmonary disease, unspecified (principal); F17.200 Nicotine dependence, unspecified, uncomplicated; I11.0 Hypertensive heart disease with heart failure; I50.9 Heart failure, unspecified; J44.0 Chronic obstructive pulmonary disease with (acute) lower respiratory infection; G47.30 Sleep apnea, unspecified; E11.9 Type 2 diabetes mellitus without complications; I13.0 Hypertensive heart and chronic kidney disease with heart failure and stage 1 through stage 4 chronic kidney disease, or unspecified chronic kidney disease; I50.32 Chronic diastolic (congestive) heart failure; J20.1 Acute bronchitis due to Hemophilus influenzae; J44.1 Chronic obstructive pulmonary disease with (acute) exacerbation; F17.210 Nicotine dependence, cigarettes, uncomplicated; E11.22 Type 2 diabetes mellitus with diabetic chronic kidney disease; N18.3 Chronic kidney disease, stage 3 (moderate); G47.33 Obstructive sleep apnea (adult) (pediatric); E66.01 Morbid (severe) obesity due to excess calories; Z68.30 Body mass index [BMI] 30.0-30.9, adult; F32.9 Major depressive disorder, single episode, unspecified; I95.2 Hypotension due to drugs; T46.4X5A Adverse effect of angiotensin-converting-enzyme inhibitors, initial encounter; I48.91 Unspecified atrial fibrillation; R41.0 Disorientation, unspecified; K21.9 Gastro-esophageal reflux disease without esophagitis; I25.10 Atherosclerotic heart disease of native coronary artery without angina pectoris; Z87.01 Personal history of pneumonia (recurrent); Z86.19 Personal history of other infectious and parasitic diseases; Z87.19 Personal history of other diseases of the digestive system; Z79.82 Long term (current) use of aspirin; Z79.51 Long term (current) use of inhaled steroids; Z79.4 Long term (current) use of insulin
CPT/HCPCS: 36415; 71045; 80048; 80053; 82330; 83036; 83690; 83735; 83880; 84100; 84484; 85025; 85610; 87070; 87077; 87150; 87205; 93005; 94640; 94660; 96374; 96375; 99285; 99291; A6250; A9270; J7626

== ENCOUNTER 2019-02-03 14:36 | Inpatient (IN) | payer MEDICARE, MEDICAID ==
[2019-02-03] MEDS ORDERED: IPRATROPIUM/ALBUTEROL 3 ML NEB INH STA (15:11)
--- NOTE | 2019-02-03 15:11 | ED Physician Documentation ---
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 Wanted to go smoke. Still SOA. +cough), Other (He has been sick for several days now, hospitalized on antibiotics and steroids with slow improvement but remained hypoxemic.) Review of Systems Ten Systems: 10 systems reviewed and negative Constitutional: denies: Fever, Chills Nose: reports: Reviewed and negative Cardiac: reports: Reviewed and negative Respiratory: reports: Reviewed and negative PD PAST MEDICAL HISTORY - Past Medical History Cardiovascular: Congestive heart failure, Hypertension, Coronary artery disease Respiratory: COPD, Pneumonia, Shortness of breath, Sleep apnea, CPAP use, Other Neuro: None Endocrine/Autoimmune: Type 2 diabetes GI: GERD, Cirrhosis : None Psych: Depression Musculoskeletal: None - Past Surgical History Past Surgical History: Yes - Present Medications Home Medications: Ambulatory Orders Medication Instructions Recorded Confirmed Amiodarone HCl 200 mg PO DAILY 02/28/17 02/02/19 Aspirin 81 mg PO DAILY 02/28/17 02/02/19 Carvedilol [Coreg] 6.25 mg PO BID 02/28/17 02/02/19 Ferrous Sulfate 325 mg PO DAILY 02/28/17 02/02/19 Fluticasone/Salmeterol [Advair 1 puffs INH BID 02/28/17 02/02/19 250-50 Diskus] Insulin Glargine [Lantus Solostar] 50 units SUBQ BID 02/28/17 02/02/19 Lisinopril [Zestril] 2.5 mg PO DAILY 02/28/17 02/02/19 QUEtiapine [SEROquel] 50 mg PO QPM 02/28/17 02/02/19 Sertraline HCl [Zoloft] 100 mg PO QPM 02/28/17 02/02/19 Tiotropium [place] [Spiriva] 1 cap INH DAILY 02/28/17 02/02/19 Torsemide [Demadex] 40 mg PO DAILY 02/28/17 02/02/19 Urea 1 applic TOP DAILY PRN 02/28/17 02/02/19 Albuterol Sulfate [Proair Hfa 2 puffs INH Q4H PRN 02/02/19 02/02/19 Inhaler] - Allergies Allergies/Adverse Reactions: Allergies Allergy/AdvReac Type Severity Reaction Status Date / Time No Known Drug Allergies Allergy Verified 02/03/19 14:42 - Social History Does the pt smoke?: Yes Smoking Status: Current every day smoker Does the pt drink ETOH?: No Does the pt have substance abuse?: No - Family History Family history: reports: Non contributory - POLST Patient has POLST: Yes POLST Status: Full Code PD ED PE NORMAL - Vitals Vital signs reviewed: Yes - General General: Alert and oriented X 3, No acute distress - HEENT HEENT: PERRL, Pharynx benign - Neck Neck: Supple, no meningeal sign, No bony TTP - Cardiac Cardiac: RRR, No murmur - Respiratory Respiratory: Other (WHEEZY CRACKLES r BASE) - Abdomen Abdomen: Non tender - Back Back: No CVA TTP, No spinal TTP - Derm Derm: Normal color, Warm and dry - Extremities Extremities: No edema, No calf tenderness / cord - Neuro Neuro: Alert and oriented X 3, Normal speech - Psych Psych: Normal mood, Normal affect Results - Vitals Vitals: Vital Signs - 24 hr 02/03/19 02/03/19 02/03/19 14:43 15:21 15:51 Temperature 36.5 C Heart Rate 78 78 73 Respiratory 22 18 18 Rate Blood Pressure 108/40 L 112/58 L O2 Saturation 88 L 93 Oxygen O2 Source Room air - Labs Labs: Laboratory Tests 02/03/19 14:48 POC Whole Bld Glucose 280 H PD MEDICAL DECISION MAKING - ED course ED course: 73-year-old gentleman who just left the hospital AMA to go smoke returns hypoxic. Spoke with Dr. Renee and she will have to readmit him because there is no way to get him oxygen from the ER today. Departure - Departure Disposition: 66 [facility] DC/Xfer Clinical Impression: COPD exacerbation Condition: Serious Discharge Date/Time: 02/03/19 17:19
[2019-02-03] MEDS ORDERED: SODIUM CHLORIDE FLUSH 0.9% 10 ML SYRINGE IVP PRN (16:36)
--- NOTE | 2019-02-03 18:10 | HISTORY & PHYSICAL EXAMINATION ---
<Lawanda Ta - Last Filed: 02/03/19 19:08> Chief Complaint - Chief Complaint Chief Complaint: Shortness of breath, hypoxia Respiratory Admission HPI - Admitted From Admitted from: ED - History Obtained From Records Reviewed: RN notes reviewed, Old records reviewed History obtained from: Patient Exam limitations: No limitations - History of Present Illness Severity at the worst: reports: Severe Context of Onset: reports: Exertion, Movement Timing: reports: Gradual onset, Constant Duration: reports: Chronic Improved with: reports: Rest, Oxygen, Nothing Worsened by: reports: Exertion, Inspiration, Movement Associated symptoms: reports: Nausea, Feeling faint / dizzy, General weakness HPI Comment/Other: Carlos Ryan is a 73-year-old gentleman with a past medical history significant for atrial fibrillation on aspirin, hypertension, coronary artery disease, liver cirrhosis, history of CVA with memory loss, obesity, congestive heart failure, COPD with emphysema, pulmonary hypertension, severe tobacco dependence, insulin dependent type 2 diabetes, obstructive sleep apnea, depression, anemia and most recently a remote history of medical noncompliance and leaving the hospital against medical advice. The patient was just in the ICU, discharged to med-surg after weaning off BiPAP today. He insisted that staff allow him to go outside for a smoke, but was warned that if he left the building, he would be discharged. Shortly after that time, ED reports that he walked into the ED with complaints of shortness of breath while ambulating. He will likely qualify for home oxygen and continued treatment of his COPD exacerbation with IV steroids, IV antibiotics and respiratory care is medically necessary. He is agreeable to an admission, promising that he will not request to go outside this time in order to be treated for his acute medical condition. I reminded him, you are either all in or all out. Since he will be here on a weekday, we will order a follow up echocardiogram. PMH/PSH - Past Medical History Cardiovascular: positive: Congestive heart failure, Hypertension, Coronary artery disease Respiratory: positive: COPD, Pneumonia, Shortness of breath, Sleep apnea, CPAP use, Other Neuro: positive: Dementia, Tremors Endocrine/Autoimmune: positive: Type 2 diabetes GI: positive: GERD, Cirrhosis, Other (ventral hernia-chronic) : positive: Benign prostate hypertrophy, Nocturia HEENT: positive: Chronic vision loss, Glaucoma, Chronic sinusitis Psych: positive: Depression, Anxiety, Other (noncompliance, impulsive) Musculoskeletal: positive: Fatigue, Chronic back pain Derm: positive: None MRSA Hx?: No Social & Family Hx - Living Situation Living Arrangement: Assisted living (welcome home) - Social History Does the pt smoke?: Yes Smoking Status: Current every day smoker Does the pt drink ETOH?: No Does the pt have substance abuse?: No - POLST Patient has POLST: Yes POLST Status: Full Code Meds/Allgy - Home Medications Home Medications: Ambulatory Orders Medication Instructions Recorded Confirmed Amiodarone HCl 200 mg PO DAILY 02/28/17 02/04/19 Aspirin 81 mg PO DAILY 02/28/17 02/04/19 Carvedilol [Coreg] 6.25 mg PO BID 02/28/17 02/04/19 Ferrous Sulfate 325 mg PO DAILY 02/28/17 02/04/19 Fluticasone/Salmeterol [Advair 1 puffs INH BID 02/28/17 02/04/19 250-50 Diskus] Lisinopril [Zestril] 2.5 mg PO DAILY 02/28/17 02/04/19 QUEtiapine [SEROquel] 50 mg PO QPM 02/28/17 02/04/19 Sertraline HCl [Zoloft] 100 mg PO QPM 02/28/17 02/04/19 Tiotropium [place] [Spiriva] 1 cap INH DAILY 02/28/17 02/04/19 Torsemide [Demadex] 40 mg PO DAILY 02/28/17 02/04/19 Urea 1 applic TOP DAILY PRN 02/28/17 02/04/19 Albuterol Sulfate [Proair Hfa 2 puffs INH Q4H PRN 02/02/19 02/04/19 Inhaler] Azithromycin 250 mg PO DAILY #4 tablet 02/04/19 Cyanocobalamin (Vitamin B-12) 1,000 mcg PO DAILY 02/04/19 02/04/19 [Vitamin B-12] Insulin Glargine [Lantus Solostar] 25 units SUBQ BID #2 pen 02/04/19 guaiFENesin [Mucinex] 600 mg PO BID PRN #20 tablet 02/04/19 predniSONE [Deltasone] 20 mg PO [id number] #21 tab 02/04/19 - Allergies Allergies/Adverse Reactions: Allergies Allergy/AdvReac Type Severity Reaction Status Date / Time No Known Drug Allergies Allergy Verified 02/03/19 14:42 Prior Level of Functionality: Ambulates, no home oxygen, resides at [facility] Exam - Vital Signs Reviewed Vital Signs: Yes - Physical Exam General Appearance: positive: Alert, Moderate distress, Anxious Eyes Bilateral: positive: PERRL, No lid inflammation ENT: positive: Pharynx nml, Pharyngeal erythema, Dry mucous membranes Neck: positive: Thyroid nml, Lymphadenopathy (R), Lymphadenopathy (L), Stiff neck Respiratory: positive: Chest non-tender, Wheezes, Rhonchi Cardiovascular: positive: No gallop, Irregularly irregular, JVD present, Systolic murmur Peripheral Pulses: positive: 1+ Abdomen: positive: Guarding, Hepatomegaly, Abnml bowel sounds Back: positive: Nml inspection Skin: positive: No rash, Warm, Dry, Pallor Extremities: positive: Non-tender, Full ROM, Nml appearance Neurologic/Psychiatric: positive: Oriented x3, CN's nml (2-12), Motor nml, Sensation nml, Weakness, Sensory loss, Depressed mood/affect Reflexes: Bicep (R): 2+, Bicep (L): 2+ Results - Lab Results Lab results reviewed: Yes Impression/Plan - Problem List Problem List: Primary diagnoses: COPD exacerbation Acute respiratory failure with hypoxia Medical non-compliance Severe tobacco dependence COPD with emphysema Obesity CKD (chronic kidney disease), stage III IDDM (insulin dependent diabetes mellitus) NGOC (obstructive sleep apnea) Atrial fibrillation Hypertension Hyperlipidemia Nocturia CHF (congestive heart failure) Core Measures - Anticipated LOS I expect patient to be DC'd or transferred within 96 hours.: Yes - DVT/VTE - Prophylaxis VTE/DVT Device ordered at admit?: Yes VTE/DVT Prophylaxis med ordered at admit?: Yes - Stroke - Rehab Assessment Rehab services assessment to be ordered?: Yes - AMI - Statin at Admit Aspirin Prescribed on Admit: Yes <Johanne Renee - Last Filed: 02/05/19 09:26> Exam - Vital Signs Vital Signs: Vital Signs x48h Temp Pulse Pulse Resp BP Pulse Ox 02/04/19 08:00 36.5 C 106 H 20 143/55 H 95 02/04/19 07:15 76 20 Results - Lab Results Fish Bones: 02/04/19 05:25 02/04/19 05:25 Other Lab Results: Lab Results x24hrs 02/04/19 02/04/19 02/04/19 Range/Units 07:33 05:25 05:25 WBC 13.6 H (4.8-10.8) x10^3/uL RBC 3.95 L (4.70-6.10) 10^6/uL Hgb 12.3 L (14.0-18.0) g/dL Hct 39.6 L (42.0-52.0) % MCV 100.3 H (80.0-94.0) fL MCH 31.1 H (27.0-31.0) pg MCHC 31.1 L (32.0-36.0) g/dL RDW 12.6 (12.0-15.0) % Plt Count 277 (130-450) 10^3/uL MPV 8.9 (7.4-11.4) fL Neut # (Auto) 12.5 H (1.5-6.6) 10^3/uL Lymph # (Auto) 0.6 L (1.5-3.5) 10^3/uL [place] # (Auto) 0.5 (0.0-1.0) 10^3/uL Eos # (Auto) 0.0 (0.0-0.7) 10^3/uL Baso # (Auto) 0.0 (0.0-0.1) 10^3/uL Absolute Nucleated RBC 0.00 x10^3/uL Nucleated RBC % 0.0 /100WBC Sodium 137 (135-145) mmol/L Potassium 4.5 (3.5-5.0) mmol/L Chloride 97 L (101-111) mmol/L Carbon Dioxide 33 H (21-32) mmol/L Anion Gap 7.0 (6-13) BUN 54 H (6-20) mg/dL Creatinine 1.8 H (0.6-1.2) mg/dL Estimated GFR (MDRD) 37 L (>89) Glucose 262 H (70-100) mg/dL POC Whole Bld Glucose 193 H (70 - 100) mg/dL Calcium 8.2 L (8.5-10.3) mg/dL Magnesium 2.7 (1.7-2.8) mg/dL Total Bilirubin 0.9 (0.2-1.0) mg/dL AST 27 (10-42) IU/L ALT 42 (10-60) IU/L Alkaline Phosphatase 66 (42-121) IU/L Total Protein 6.7 (6.7-8.2) g/dL Albumin 3.1 L (3.2-5.5) g/dL Globulin 3.6 (2.1-4.2) g/dL Albumin/Globulin Ratio 0.9 L (1.0-2.2) 02/03/19 Range/Units 14:48 WBC (4.8-10.8) x10^3/uL RBC (4.70-6.10) 10^6/uL Hgb (14.0-18.0) g/dL Hct (42.0-52.0) % MCV (80.0-94.0) fL MCH (27.0-31.0) pg MCHC (32.0-36.0) g/dL RDW (12.0-15.0) % Plt Count (130-450) 10^3/uL MPV (7.4-11.4) fL Neut # (Auto) (1.5-6.6) 10^3/uL Lymph # (Auto) (1.5-3.5) 10^3/uL [place] # (Auto) (0.0-1.0) 10^3/uL Eos # (Auto) (0.0-0.7) 10^3/uL Baso # (Auto) (0.0-0.1) 10^3/uL Absolute Nucleated RBC x10^3/uL Nucleated RBC % /100WBC Sodium (135-145) mmol/L Potassium (3.5-5.0) mmol/L Chloride (101-111) mmol/L Carbon Dioxide (21-32) mmol/L Anion Gap (6-13) BUN (6-20) mg/dL Creatinine (0.6-1.2) mg/dL Estimated GFR (MDRD) (>89) Glucose (70-100) mg/dL POC Whole Bld Glucose 280 H (70 - 100) mg/dL Calcium (8.5-10.3) mg/dL Magnesium (1.7-2.8) mg/dL Total Bilirubin (0.2-1.0) mg/dL AST (10-42) IU/L ALT (10-60) IU/L Alkaline Phosphatase (42-121) IU/L Total Protein (6.7-8.2) g/dL Albumin (3.2-5.5) g/dL Globulin (2.1-4.2) g/dL Albumin/Globulin Ratio (1.0-2.2) Impression/Plan - Problem List Problem List: COPD exacerbation: Continue with Beta adrenergic and steroid nebulizers scheduled and PRN. Continue with Singulair and Mucinex. Start iv Zithro and iv Vanco Acute respiratory failure with hypoxia: Continue supplemental O2. Exercise oximetry test planned in a.m., since he now agrees to be discharged with home O2 (and told the ER doctor he would take it off only to smoke). Medical non-compliance: He refuses to quit smoking. He wanted to take the oxygen tank out of the hospital with him, to have a smoke and when this was denied he signed out AMA earlier today. He was told by Junior Ta NP that he needs to follow hospital guidelines regarding oxygen use and smoking and he agreed. Severe tobacco dependance: He refused a Nicotine patch during the last admission, especially when he had nicotine urges and demanded to smoke. He now agrees to have a Nicotine Patch applied. COPD with emphysema: He is compliant with his nebs at home, he did improve with IV steroids on this last admission and got 2 days of Zithromax before he signed out AMA. Patient corrected the record: he has no oxygen at home. CKD: As of low BP and creatinine of 1.8, the torsemide was on hold for 2 of the 3 days of this last recent admission. Torsemide will be given daily now. IDDM: Continue a carb-controlled diet and ss Insulin coverage. NGOC: He was witnessed to have apnea when in the ICU on the last admission. He corrected the record: he has no CPAP device at home. Afib: He is maintaining sinus rhythm, continue Amiodarone 200 mg daily. However, Amiodarone could be giving him pulmonary fibrosis and worsening his respiratory status HTN: He actually runs low BPs. We will resume his usual medications. Hyperlipidemia: Continue with his statin dose. CHF: Continue his Coreg, Amiodarone, Spironolactone and daily Torsemide, possibly not bid, due to CKD.
[2019-02-03] MEDS ORDERED: IPRATROPIUM/ALBUTEROL 3 ML NEB INH PRN (18:30)
[2019-02-03] MEDS: SODIUM CHLORIDE FLUSH 0.9% 10 ML SYRINGE IVP SCH (18:55)
[2019-02-03] MEDS: NICOTINE 21 MG PATCH TOP SCH (19:07)
[2019-02-03] MEDS: guaiFENesin 600 MG TABLET PO SCH (20:05)
[2019-02-03] MEDS: ENOXAPARIN 40 MG/0.4 ML SYRINGE SUBQ SCH (20:05)
[2019-02-03] MEDS: IPRATROPIUM/ALBUTEROL 3 ML NEB INH SCH (20:26)
[2019-02-03] MEDS: INSULIN ASPART 300 UNIT/3 ML PEN SUBQ SCH (21:34)
[2019-02-03] MEDS: methylPREDNISolone SUCCINATE 40 MG/ML VIAL IVP SCH (21:34)
[2019-02-04] MEDS: SODIUM CHLORIDE FLUSH 0.9% 10 ML SYRINGE IVP SCH ×2 (01:25→09:14)
[2019-02-04] MEDS: methylPREDNISolone SUCCINATE 40 MG/ML VIAL IVP SCH (05:17)
[2019-02-04 06:04] LABS: BASOPHILS % (AUTO) 0.1 %; HGB - HEMOGLOBIN 12.3 g/dL (14.0-18.0); LYMPHOCYTES # (AUTO) 0.6 10^3/uL (1.5-3.5); LYMPHOCYTES % (AUTO) 4.2 %; MEAN CORPUSCULAR HEMOGLOBIN 31.1 pg (27.0-31.0); MEAN CORPUSCULAR HGB CONC 31.1 g/dL (32.0-36.0); MEAN CORPUSCULAR VOLUME 100.3 fL (80.0-94.0); MEAN PLATELET VOLUME 8.9 fL (7.4-11.4); MONOCYTES # (AUTO) 0.5 10^3/uL (0.0-1.0); MONOCYTES % (AUTO) 3.3 %; NEUTROPHILS # (AUTO) 12.5 10^3/uL (1.5-6.6); NEUTROPHILS % (AUTO) 91.7 %; PLT - PLATELET COUNT 277 10^3/uL (130-450); RED BLOOD COUNT 3.95 10^6/uL (4.70-6.10); RED CELL DISTRIBUTION WIDTH 12.6 % (12.0-15.0); WHITE BLOOD COUNT 13.6 x10^3/uL (4.8-10.8)
[2019-02-04 06:22] LABS: ALBUMIN 3.1 g/dL (3.2-5.5); ALBUMIN/GLOBULIN RATIO 0.9 (1.0-2.2); BILIRUBIN,TOTAL 0.9 mg/dL (0.2-1.0); CALCIUM 8.2 mg/dL (8.5-10.3); CREATININE 1.8 mg/dL (0.6-1.2); MAGNESIUM 2.7 mg/dL (1.7-2.8); TOTAL PROTEIN 6.7 g/dL (6.7-8.2)
[2019-02-04] MEDS: IPRATROPIUM/ALBUTEROL 3 ML NEB INH SCH ×2 (07:14→11:04)
[2019-02-04] MEDS ORDERED: AZITHROMYCIN INJ 500 MG in SODIUM CHLORIDE 0.9% 250 ML IV SCH (09:00)
[2019-02-04] MEDS ORDERED: cefTRIAXone 1 GM in SODIUM CHLORIDE 0.9% MINIBAG 100 ML IV SCH (09:00)
[2019-02-04 09:07] VITALS: BP 143/55
[2019-02-04] MEDS: INSULIN ASPART 300 UNIT/3 ML PEN SUBQ SCH ×2 (09:13→11:48)
[2019-02-04] MEDS: guaiFENesin 600 MG TABLET PO SCH (09:13)
[2019-02-04] MEDS: NICOTINE 21 MG PATCH TOP SCH (09:13)
[2019-02-04] MEDS: ENOXAPARIN 40 MG/0.4 ML SYRINGE SUBQ SCH (09:14)
[2019-02-04] MEDS ORDERED: ASPIRIN EC 81 MG TABLET PO SCH (09:30)
[2019-02-04] MEDS ORDERED: SPIRONOLACTONE 25 MG TABLET PO SCH (09:30)
[2019-02-04] MEDS ORDERED: AMIODARONE 200 MG TABLET PO SCH (09:30)
[2019-02-04] MEDS ORDERED: carvediloL 3.125 MG TABLET PO SCH (09:30)
[2019-02-04] MEDS ORDERED: methylPREDNISolone SUCCINATE 40 MG/ML VIAL IVP SCH (10:00)
--- NOTE | 2019-02-04 12:28 | PHARMACY PROGRESS NOTE ---
- Best Possible Medication History Admit Date and Time: 02/03/19 1348 Processed by: Pharmacy Medication History completed: Yes Patient Interview: Completed (poor historian) Secondary Source(s): Insurance records, Previous admit records, Facility MAR as ONLY source (facility MAR not as only source; facility mar from [facility]) As the person ultimately responsible for medication therapy, providers are able to order a medication from an existing home medication list in [facility] via the "Reconcile Routine" prior to Confirmation of that medication by claims support specialist. Such practice is discouraged except when the physician, in their clinical mao gment, deems that a medical need exists for a medication without regard to previous use.
--- NOTE | 2019-02-04 13:07 | Discharge Plan ---
"Discharge Plan for SNF / [facility] - Discharge Plan And Transition Orders Problem Reviewed?: Yes Disposition: 01 Home, Self Care Condition: Stable Allergies and Adverse Reactions: Allergies Allergy/AdvReac Type Severity Reaction Status Date / Time No Known Drug Allergies Allergy Verified 02/03/19 14:42 Health Concerns: COPD exacerbation, diabetes Plan of Treatment: you was evaluated and treated with RT, you are required to have home oxygen now, please followup RT instruction safely to use oxygen. Your smoke cessation is highly recommended. you are prescribed short term of antibiotics Azithromycin, and singular and Mucinex. Your insulin lantus is reduced to 25 units bid from 50 units of Lantus bid according to your conditions in hospital. Discussed with your pharmacy in [facility], they will call your provider and adjust your insulin level as needed. Care Goals: stabilization and improvement of your medical conditions Assessment: discussed with you the care plan, you understood. - SNF / [facility] Transition Orders Admit to (Facility): [facility] Under the care of (Name): Camilla Luciano Discharge Diagnosis: COPD exacerbation, home O2-dependence, CHF, DM2, severe tobacco dependence, medical non-compliance Medicare Certification Statement: I do not certify that [facility] care is medically necessary on a continuing basis for any of the conditions for which she/he is receiving care during hospitalization. Notify PCP of admission and forward orders to primary provider for signature. Weight on admission and: Daily Call PCP immediately if weight increases by: 2 kg Other Notification Orders: Call PCP immediately if patient develops dyspnea, chest pain/tightness or edema. House Bowel Program: Yes Additional Bowel Program Orders: If no BM after 2 days, nurse may give M.O.M. 30ml PO PRN and/or ducolax Supp 1 TN and/or CARLO 250mg P.O., and/or senna 1-2 tabs PO. On day 3 nurse may give repeat above order until residents constipation is resolved. Annual Influenza Vaccine (between Oct 07 and May 06): Yes Two-step PPD per [facility] [id number] or approved exception documents: Yes Treatments & Other Orders: you was evaluated and treated with RT, you are required to have home oxygen now, please followup RT instruction safely to use oxygen. Your smoke cessation is highly recommended. you are prescribed short term of antibiotics Azithromycin, and singular and Mucinex. Your insulin lantus is reduced to 25 units bid from 50 units of Lantus bid according to your conditions in hospital. Discussed with your pharmacy in [place] home, they will call your provider and adjust your insulin level as needed. Oxygen Orders: 2-3 liter of O2 with NC Medication Orders: PLEASE REFER TO THE DISCHARGE MEDICATION LIST. Insulin Orders?: Yes - Medications New Prescriptions: Azithromycin 250 mg PO DAILY #4 tablet guaiFENesin [Mucinex] 600 mg PO BID PRN #20 tablet PRN Reason: Cough predniSONE [Deltasone] 20 mg PO [id number] #21 tab - Diet Type: Geriatric Texture: Regular Liquids: Thin May have monthly special meal: Yes - Therapies | Activity Rehabilitation Potential: Maximize functional status Activity: Activity as Tolerated Additional Instructions: you may followup your PCP in one week, have pulmonary rehab in [facility] clinic, have closely glucose level monitor and safely use oxygen in [facility]. Should your symptoms return or worse, you may present ER or call 911 for help. Insulin Orders - SNF Basal | Correction | Custom Orders: Diagnosis: Diabetes Initiate hypo and hyperglycemia protocols for BG <70 and BG >375. May check BG PRN for signs/symptoms of dysglycemia. Frequency of BG checks: [AC/Meal/HS] Basal Insulin: [x] Lantus 100 units / ml inject subq as follows: [25 units of Lantus Bid] [] Other: [] Correction Insulin: - Select the type of insulin below [Choose: Novolog/Humalog]100 units /ml insulin inject subq per orders indicate below [] LOW DOSE [] MODERATE DOSE [] MODERATE/HIGH DOSE [] HIGH DOSE GB UNITS GB UNITS GB UNITS GB UNITS 61-140 0 UNITS 61-140 0 UNITS 61-140 0 UNITS 61-140 0 UNITS 141-175 1 UNITS 141-175 1 UNITS 141-175 2 UNITS 141-175 3 UNITS 176-225 2 UNITS 176-225 3 UNITS 176-225 4 UNITS 176-225 5 UNITS 226-275 3 UNITS 226-275 5 UNITS 226-275 6 UNITS 226-275 7 UNITS 276-325 4 UNITS 276-325 7 UNITS 276-325 8 UNITS 276-325 9 UNITS 326-375 5 UNITS 326-375 9 UNITS 326-375 10 UNITS 326-375 11 UNITS >375 CONTACT MD >375 CONTACT MD >375 CONTACT MD >375 CONTACT MD Custom Dosing: [Choose: Novolog/Humalog] 100 units/ml Insulin inject subq as follows: GB Units 61-140 [] Units 141-175 [] Units 176-225 [] Units 226-275 [] Units 276-325 []Units 326-375 [] Units >375 Contact MD"
--- NOTE | 2019-02-04 13:44 | DISCHARGE SUMMARY ---
Discharge Summary Admit Date: 02/03/19 Discharge Date: 02/04/19 Discharging Provider: Devonte Yun Primary Care Provider: Camilla Luciano Condition at Discharge: Stable Discharge Disposition: 01 Home, Self Care Discharge Facility Name: [facility] - DIAGNOSES Admission Diagnoses: 1, COPD exacerbation 2, Acute respiratory failure with hypoxia: 3, CHF: Continue his Coreg, Amiodarone, Spironolactone and daily Torsemide, not bid, due to CKD. 4, IDDM: Severe tobascco dependance: 5. Medical non-compliance: Discharge Diagnoses with Status of Each Condition: 1, COPD exacerbation stable. after treatment, pt denies SOB, pt has no tachycardia, no tachypnea. pt is prescribed mucinex, antibiotics azithromycin, short term of prednisone with waned off dosage. advise pt take home ICS/LAMA/LABA. pt was hypoxic at rest, with O2 sats of 86% on room air at rest on 2 lpm of O2, his O2 sats improved to 92%. with Ambulation on 3 lpm of O2, his O2 sats improved to 92% I am ordering home O2 at 2 lpm at rest and sleep, and 3 lpm for exertion, to treat his hypoxemia and COPD pt tried to smoke cigarette at hospital room, but pt was found by nurse and nurse stopped his smoking. pt is upset for this. pt signed AMA on yesterday for out-side hospital smoking. This will happen again if he smoke. pt need oxygen to go home, so we discharge him, pt will have oxygen setting at [facility]. pt was strongly advised for smoke cessation, special for his safety usage of oxygen. advise pt followup pulmonary rehab 2, Acute respiratory failure with hypoxia: stable. pt was hypoxic at rest, with O2 sats of 86% on room air at rest on 2 lpm of O2, his O2 sats improved to 92%. with Ambulation on 3 lpm of O2, his O2 sats improved to 92% I am ordering home O2 at 2 lpm at rest and sleep, and 3 lpm for exertion, to treat his hypoxemia and COPD 3, CHF: stable, Continue his Coreg, Amiodarone, daily Torsemide 4, IDDM: stable. pt has A1C 7.1. pt had 50 units of lantus in home but in hospital, pt was not prescribed Lantus instead of slide scale. pt's weight is 111kg. pt is prescribed 25 unit of Lantus bid. I called pt's pharmacy in [facility], advise closely monitor pt's glucose level, advise call pt's PCP and adjust insulin as needed 5. Severe tobascco dependance: pt continue smoking. pt tried to smoke cigarette at hospital room, but pt was found by nurse and nurse stopped his smoking. pt is upset for this. pt signed AMA on yesterday for out-side hospital smoking. This will happen again if he smoke. pt need oxygen to go home, so we discharge him, pt will have oxygen setting at [facility]. pt was strongly advised for smoke cessation, special for his safety usage of oxygen. 6. Medical non-compliance: pt report he did not compliance for home meds, cardiac meds. strongly advise pt for medical compliance. 7, CKD stable - HPI History of Present Illness: refer from Ms. Leblanc's HPI on 02/03/19 Carlos Ryan is a 73-year-old gentleman with a past medical history significant for atrial fibrillation on aspirin, hypertension, coronary artery disease, liver cirrhosis, history of CVA with memory loss, obesity, congestive heart failure, COPD with emphysema, pulmonary hypertension, severe tobacco dependence, insulin dependent type 2 diabetes, obstructive sleep apnea, depression, anemia and most recently a remote history of medical noncompliance and leaving the hospital against medical advice. The patient was just in the ICU, discharged to med-surg after weaning off BiPAP today. He insisted that staff allow him to go outside for a smoke, but was warned that if he left the building, he would be discharged. Shortly after that time, ED reports that he walked into the ED with complaints of shortness of breath while ambulating. He will likely qualify for home oxygen and continued treatment of his COPD exacerbation with IV steroids, IV antibiotics and respiratory care is medically necessary. He is agreeable to an admission, promising that he will not request to go outside this time in order to be treated for his acute medical condition. I reminded him, you are either all in or all out. Since he will be here on a weekday, we will order a follow up echocardiogram. - HOSPITAL COURSE Hospital Course: pt was re-admitted for shortness of breath. pt signed AMA because of his cigarette smoking and went outside of hospital. pt was immediately coming back for readmitting for SOB. pt was treated for COPD exacerbation. after treated in hospital. pt is hemodynamic stable. pt was evaluated and treated by RT. pt required to have home oxygen now. pt tries to smoke cigarette at hospital again today. pt was d/c to [facility] today. The detail hospital course is as the followin, COPD exacerbation stable. after treatment, pt denies SOB, pt has no tachycardia, no tachypnea. pt is prescribed mucinex, antibiotics azithromycin, short term of prednisone with waned off dosage. advise pt take home ICS/LAMA/LABA. pt was hypoxic at rest, with O2 sats of 86% on room air at rest on 2 lpm of O2, his O2 sats improved to 92%. with Ambulation on 3 lpm of O2, his O2 sats improved to 92% I am ordering home O2 at 2 lpm at rest and sleep, and 3 lpm for exertion, to treat his hypoxemia and COPD pt tried to smoke cigarette at hospital room, but pt was found by nurse and nurse stopped his smoking. pt is upset for this. pt signed AMA on yesterday for out-side hospital smoking. This will happen again if he smoke. pt need oxygen to go home, so we discharge him, pt will have oxygen setting at [facility]. pt was strongly advised for smoke cessation, special for his safety usage of oxygen. advise pt followup pulmonary rehab 2, Acute respiratory failure with hypoxia: stable. pt was hypoxic at rest, with O2 sats of 86% on room air at rest on 2 lpm of O2, his O2 sats improved to 92%. with Ambulation on 3 lpm of O2, his O2 sats improved to 92% I am ordering home O2 at 2 lpm at rest and sleep, and 3 lpm for exertion, to treat his hypoxemia and COPD 3, CHF: stable, Continue his Coreg, Amiodarone, daily Torsemide 4, IDDM: stable. pt has A1C 7.1. pt had 50 units of lantus in home but in hospital, pt was not prescribed Lantus instead of slide scale. pt's weight is 111kg. pt is pr escribed 25 unit of Lantus bid. I called pt's pharmacy in [facility], advise closely monitor pt's glucose level, advise call pt's PCP and adjust insulin as needed 5. Severe tobascco dependance: pt continue smoking. pt tried to smoke cigarette at hospital room, but pt was found by nurse and nurse stopped his smoking. pt is upset for this. pt signed AMA on yesterday for out-side hospital smoking. This will happen again if he smoke. pt need oxygen to go home, so we discharge him, pt will have oxygen setting at [facility] home. pt was strongly advised for smoke cessation, special for his safety usage of oxygen. 6. Medical non-compliance: pt report he did not compliance for home meds, cardiac meds. strongly advise pt for medical compliance. 7, CKD stable - ALLERGIES Allergies/Adverse Reactions: Allergies Allergy/AdvReac Type Severity Reaction Status Date / Time No Known Drug Allergies Allergy Verified 02/03/19 14:42 - MEDICATIONS Home Medications: Ambulatory Orders Medication Instructions Recorded Confirmed Amiodarone HCl 200 mg PO DAILY 02/28/17 02/04/19 Aspirin 81 mg PO DAILY 02/28/17 02/04/19 Carvedilol [Coreg] 6.25 mg PO BID 02/28/17 02/04/19 Ferrous Sulfate 325 mg PO DAILY 02/28/17 02/04/19 Fluticasone/Salmeterol [Advair 1 puffs INH BID 02/28/17 02/04/19 250-50 Diskus] Lisinopril [Zestril] 2.5 mg PO DAILY 02/28/17 02/04/19 QUEtiapine [SEROquel] 50 mg PO QPM 02/28/17 02/04/19 Sertraline HCl [Zoloft] 100 mg PO QPM 02/28/17 02/04/19 Tiotropium Nallen [Spiriva] 1 cap INH DAILY 02/28/17 02/04/19 Torsemide [Demadex] 40 mg PO DAILY 02/28/17 02/04/19 Urea 1 applic TOP DAILY PRN 02/28/17 02/04/19 Albuterol Sulfate [Proair Hfa 2 puffs INH Q4H PRN 02/02/19 02/04/19 Inhaler] Azithromycin 250 mg PO DAILY #4 tablet 02/04/19 Cyanocobalamin (Vitamin B-12) 1,000 mcg PO DAILY 02/04/19 02/04/19 [Vitamin B-12] Insulin Glargine [Lantus Solostar] 25 units SUBQ BID #2 pen 02/04/19 guaiFENesin [Mucinex] 600 mg PO BID PRN #20 tablet 02/04/19 predniSONE [Deltasone] 20 mg PO [id number] #21 tab 02/04/19 - PHYSICAL EXAM AT DISCHARGE General Appearance: positive: No acute distress, Alert. negative: Lethargic Eyes Bilateral: positive: Normal inspection, PERRL, EOMI, No lid inflammation ENT: positive: ENT inspection nml, Pharynx nml, No signs of dehydration. negative: Purulent nasal drainage, Dry mucous membranes Neck: positive: Nml inspection, Thyroid nml, No JVD, Trachea midline. negative: Thyromegaly, Lymphadenopathy (R), Lymphadenopathy (L), Stiff neck, Tracheal deviation Respiratory: positive: Chest non-tender, No respiratory distress, Other (diminished lung sound bilaterally). negative: Breath sounds nml, Wheezes, Rales, Rhonchi Cardiovascular: positive: Regular rate & rhythm, No murmur, No gallop. negative: Irregularly irregular, Extrasystoles, Tachycardia, Bradycardia, JVD present, Systolic murmur, Diastolic murmur Peripheral Pulses: positive: 2+ Abdomen: positive: Non-tender, No organomegaly, Nml bowel sounds, No distention. negative: Tenderness, Guarding, Rebound Back: positive: Nml inspection. negative: CVA tenderness (R), CVA tenderness (L) Skin: positive: Color nml, No rash, Warm, Dry. negative: Cyanosis, Diaphoresis, Pallor Extremities: positive: Non-tender, Full ROM, Nml appearance. negative: Calf tenderness, Ko's sign/cords Neurologic/Psychiatric: positive: Oriented x3, Motor nml, Sensation nml, Mood/ affect nml. negative: Weakness, Sensory loss, Facial droop, Slurred/abnml speech, Depressed mood/affect - LABS Result Diagrams: 02/04/19 05:25 02/04/19 05:25 - FOLLOW UP Follow Up: you was evaluated and treated with RT, you are required to have home oxygen now, please followup RT instruction safely to use oxygen. Your smoke cessation is highly recommended. you are prescribed short term of antibiotics Azithromycin, and Mucinex and predinsone. Your insulin lantus is reduced to 25 units bid from 50 units of Lantus bid according to your conditions in hospital. Discussed with your pharmacy in [facility], they will call your provider and adjust your insulin level as needed. you may followup your PCP in one week, have pulmonary rehab in [facility] clinic, have closely glucose level monitor and safely use oxygen in [facility]. Should your symptoms return or worse, you may present ER or call 911 for help.
== END 2019-02-04 14:00 | disposition home or self-care (01) | DRG 190 ==
LOC: ED 14:36 → MS2 16:36
PROVIDERS: ADMIT Nurse Practitioner; ATTEND Nurse Practitioner Gerontology
DX: J44.1 Chronic obstructive pulmonary disease with (acute) exacerbation (principal); I11.0 Hypertensive heart disease with heart failure; J43.9 Emphysema, unspecified; J96.01 Acute respiratory failure with hypoxia; G47.30 Sleep apnea, unspecified; E11.9 Type 2 diabetes mellitus without complications; F17.200 Nicotine dependence, unspecified, uncomplicated; I13.0 Hypertensive heart and chronic kidney disease with heart failure and stage 1 through stage 4 chronic kidney disease, or unspecified chronic kidney disease; E11.22 Type 2 diabetes mellitus with diabetic chronic kidney disease; N18.3 Chronic kidney disease, stage 3 (moderate); I50.9 Heart failure, unspecified; F17.210 Nicotine dependence, cigarettes, uncomplicated; I48.91 Unspecified atrial fibrillation; I25.10 Atherosclerotic heart disease of native coronary artery without angina pectoris; I69.311 Memory deficit following cerebral infarction; E66.9 Obesity, unspecified; I27.20 Pulmonary hypertension, unspecified; E78.5 Hyperlipidemia, unspecified; G47.33 Obstructive sleep apnea (adult) (pediatric); F32.9 Major depressive disorder, single episode, unspecified; F41.9 Anxiety disorder, unspecified; D64.9 Anemia, unspecified; F03.90 Unspecified dementia, unspecified severity, without behavioral disturbance, psychotic disturbance, mood disturbance, and anxiety; Z68.33 Body mass index [BMI] 33.0-33.9, adult; Z79.4 Long term (current) use of insulin; Z79.82 Long term (current) use of aspirin; Z79.899 Other long term (current) drug therapy; Z91.19 Patient's noncompliance with other medical treatment and regimen; Z79.51 Long term (current) use of inhaled steroids
CPT/HCPCS: 36415; 80053; 83735; 85025; 94640; 94761; 99284; 99285; A9270; J1650

== ENCOUNTER 2019-02-13 09:48 | Outpatient (CLI) | payer MEDICARE, MEDICAID ==
[2019-02-13 11:57] LABS: HGB - HEMOGLOBIN 13.4 g/dL (14.0-18.0); MEAN CORPUSCULAR HEMOGLOBIN 31.7 pg (27.0-31.0); MEAN CORPUSCULAR HGB CONC 31.5 g/dL (32.0-36.0); MEAN CORPUSCULAR VOLUME 100.7 fL (80.0-94.0); MEAN PLATELET VOLUME 9.5 fL (7.4-11.4); RED BLOOD COUNT 4.23 10^6/uL (4.70-6.10); RED CELL DISTRIBUTION WIDTH 12.7 % (12.0-15.0); WHITE BLOOD COUNT 14.9 x10^3/uL (4.8-10.8)
[2019-02-13 12:16] LABS: CALCIUM 8.4 mg/dL (8.5-10.3); CREATININE 1.7 mg/dL (0.6-1.2)
[2019-02-13 12:19] LABS: CREATININE,URINE 61.6 mg/dL; PROTEIN/CREATININE RATIO,URINE 0.2 (<=0.2)
== END 2019-02-13 09:49 | disposition home or self-care (01) ==
LOC: LAB.N 09:48
PROVIDERS: ATTEND Internal Medicine Nephrology
DX: N05.9 Unspecified nephritic syndrome with unspecified morphologic changes (principal); D70.9 Neutropenia, unspecified; N18.9 Chronic kidney disease, unspecified; D63.1 Anemia in chronic kidney disease; R80.9 Proteinuria, unspecified
CPT/HCPCS: 36415; 80048; 82570; 84156; 85027

== ENCOUNTER 2019-07-02 12:19 | Outpatient (CLI) | payer MEDICARE, MEDICAID ==
[2019-07-02 18:03] LABS: BASOPHILS # (AUTO) 0.1 10^3/uL (0.0-0.1); BASOPHILS % (AUTO) 1.1 %; EOSINOPHILS # (AUTO) 0.2 10^3/uL (0.0-0.7); EOSINOPHILS % (AUTO) 2.9 %; HGB - HEMOGLOBIN 13.8 g/dL (14.0-18.0); LYMPHOCYTES # (AUTO) 1.7 10^3/uL (1.5-3.5); LYMPHOCYTES % (AUTO) 20.3 %; MEAN CORPUSCULAR HEMOGLOBIN 32.5 pg (27.0-31.0); MEAN CORPUSCULAR HGB CONC 31.8 g/dL (32.0-36.0); MEAN CORPUSCULAR VOLUME 102.1 fL (80.0-94.0); MEAN PLATELET VOLUME 9.8 fL (7.4-11.4); MONOCYTES # (AUTO) 0.6 10^3/uL (0.0-1.0); MONOCYTES % (AUTO) 6.6 %; NEUTROPHILS # (AUTO) 5.7 10^3/uL (1.5-6.6); NEUTROPHILS % (AUTO) 68.7 %; PLT - PLATELET COUNT 227 10^3/uL (130-450); RED BLOOD COUNT 4.25 10^6/uL (4.70-6.10); WHITE BLOOD COUNT 8.3 x10^3/uL (4.8-10.8)
[2019-07-02 18:31] LABS: THYROID STIMULATING HORMONE 0.29 uIU/mL (0.34-5.60)
[2019-07-02 18:32] LABS: ALBUMIN 3.9 g/dL (3.2-5.5); ALBUMIN/GLOBULIN RATIO 1.1 (1.0-2.2); ALKALINE PHOSPHATASE 100 IU/L (42-121); ALT ALANINE AMINOTRANSFERASE 16 IU/L (10-60); AST ASPARTATE AMINOTRANSFERASE 16 IU/L (10-42); BILIRUBIN,TOTAL 0.8 mg/dL (0.2-1.0); BUN - BLOOD UREA NITROGEN 32 mg/dL (6-20); CALCIUM 8.4 mg/dL (8.5-10.3); CARBON DIOXIDE - CO2 34 mmol/L (21-32); CHLORIDE 99 mmol/L (101-111); CHOL/HDL RATIO 6.8 (<5.0); CHOLESTEROL 217 mg/dL; CREATININE 1.6 mg/dL (0.6-1.2); HDL CHOLESTEROL 32 mg/dL; LDL CHOLESTEROL,CALCULATED 145 mg/dL; LDL/HDL RATIO 4.5 (<3.6); SODIUM 142 mmol/L (135-145); TOTAL PROTEIN 7.6 g/dL (6.7-8.2); VLDL CHOLESTEROL 40 mg/dL
[2019-07-02 18:33] LABS: FREE T4 (FREE THYROXINE) 1.07 ng/dL (0.58-1.64)
[2019-07-02 18:40] LABS: HB2 TOTAL 14.6 g/dL; HEMOGLOBIN A1C 0.62 g/dL
[2019-07-02 18:45] LABS: GLUCOSE 54 mg/dL (70-100)
[2019-07-02 19:01] LABS: CREATININE,URINE 66.7 mg/dL; MICROALBUMIN,URINE 2.2 mg/dL (0-300.0)
== END 2019-07-02 23:59 | disposition home or self-care (01) ==
LOC: LAB.WCP 12:19
PROVIDERS: ATTEND Internal Medicine
DX: Z13.6 Encounter for screening for cardiovascular disorders (principal); Z79.899 Other long term (current) drug therapy; G47.33 Obstructive sleep apnea (adult) (pediatric); J44.9 Chronic obstructive pulmonary disease, unspecified; E11.22 Type 2 diabetes mellitus with diabetic chronic kidney disease; I12.9 Hypertensive chronic kidney disease with stage 1 through stage 4 chronic kidney disease, or unspecified chronic kidney disease; N18.9 Chronic kidney disease, unspecified; E78.5 Hyperlipidemia, unspecified; E03.9 Hypothyroidism, unspecified; D64.1 Secondary sideroblastic anemia due to disease; E50.9 Vitamin A deficiency, unspecified
CPT/HCPCS: 36415; 80053; 80061; 82043; 82274; 82570; 82607; 83036; 83721; 84439; 84443; 85025

== ENCOUNTER 2019-10-29 08:49 | Outpatient (CLI) | payer MEDICARE, MEDICAID | END 2019-10-29 08:50 | disposition critical access hospital (66) | LOC: EMS 08:49 | PROVIDERS: ATTEND Surgery | DX: R10.9 Unspecified abdominal pain (principal); R06.00 Dyspnea, unspecified; R11.10 Vomiting, unspecified | CPT/HCPCS: A0425; A0429 ==